=== PATIENT | male | born 1960 | race Caucasian/White ===

== ENCOUNTER 2016-11-28 06:42 | Outpatient (CLI) | payer OTHER ==
[2016-11-28 19:09] LABS: BASOPHILS % (AUTO) 0.7 %; EOSINOPHILS # (AUTO) 0.1 10^3/uL (0.0-0.7); EOSINOPHILS % (AUTO) 1.9 %; HCT - HEMATOCRIT 37.7 % (42.0-52.0); HGB - HEMOGLOBIN 12.7 g/dL (14.0-18.0); LYMPHOCYTES # (AUTO) 1.4 10^3/uL (1.5-3.5); LYMPHOCYTES % (AUTO) 29.5 %; MEAN CORPUSCULAR HEMOGLOBIN 32.1 pg (27.0-31.0); MEAN CORPUSCULAR HGB CONC 33.6 g/dL (32.0-36.0); MEAN CORPUSCULAR VOLUME 95.6 fL (80.0-94.0); MEAN PLATELET VOLUME 11.1 fL (7.4-11.4); MONOCYTES # (AUTO) 0.4 10^3/uL (0.0-1.0); MONOCYTES % (AUTO) 8.5 %; NEUTROPHILS # (AUTO) 2.7 10^3/uL (1.5-6.6); NEUTROPHILS % (AUTO) 59.4 %; RED BLOOD COUNT 3.95 10^6/uL (4.70-6.10); UNCORRECTED WHITE BLOOD COUNT 4.6 x10^3/uL; WHITE BLOOD COUNT 4.6 x10^3/uL (4.8-10.8)
[2016-11-28 19:20] LABS: ALBUMIN/GLOBULIN RATIO 1.4 (1.0-2.2); BILIRUBIN,TOTAL 0.8 mg/dL (0.2-1.0); CALCIUM 9.1 mg/dL (8.5-10.3); CREATININE 0.7 mg/dL (0.6-1.2); POTASSIUM 3.9 mmol/L (3.5-5.0); TOTAL PROTEIN 6.6 g/dL (6.7-8.2)
== END 2016-11-28 06:43 | disposition home or self-care (01) ==
LOC: LAB.N 06:42
PROVIDERS: ATTEND Family Medicine
DX: Z91.89 Other specified personal risk factors, not elsewhere classified (principal); N48.9 Disorder of penis, unspecified
CPT/HCPCS: 36415; 80053; 85025; 86694; 86695; 86696; 86780; 86803; 87389; 87491; 87591

== ENCOUNTER 2016-12-04 15:08 | Outpatient (CLI) | payer OTHER ==
[2016-12-04 19:31] LABS: BASOPHILS % (AUTO) 0.6 %; EOSINOPHILS # (AUTO) 0.1 10^3/uL (0.0-0.7); EOSINOPHILS % (AUTO) 1.4 %; HCT - HEMATOCRIT 38.3 % (42.0-52.0); HGB - HEMOGLOBIN 12.8 g/dL (14.0-18.0); IMMATURE RETIC FRACTION 0.44; IRON 75 ug/dL (45-182); LYMPHOCYTES # (AUTO) 1.2 10^3/uL (1.5-3.5); LYMPHOCYTES % (AUTO) 24.1 %; MEAN CORPUSCULAR HEMOGLOBIN 32.1 pg (27.0-31.0); MEAN CORPUSCULAR HGB CONC 33.4 g/dL (32.0-36.0); MEAN CORPUSCULAR VOLUME 95.9 fL (80.0-94.0); MONOCYTES # (AUTO) 0.5 10^3/uL (0.0-1.0); MONOCYTES % (AUTO) 9.4 %; NEUTROPHILS # (AUTO) 3.3 10^3/uL (1.5-6.6); NEUTROPHILS % (AUTO) 64.5 %; NUCLEATED RED BLOOD CELLS AUTO 0.1 /100WBC; RED BLOOD COUNT 3.99 10^6/uL (4.70-6.10); RED CELL DISTRIBUTION WIDTH 15.5 % (12.0-15.0); TOTAL IRON BINDING CAPACITY 445 ug/dL (250-450); TRANSFERRIN 318 mg/dL (180-329); UNCORRECTED WHITE BLOOD COUNT 5.1 x10^3/uL; WHITE BLOOD COUNT 5.1 x10^3/uL (4.8-10.8)
[2016-12-04 19:48] LABS: FERRITIN 50.7 ng/mL (23.9-336.2)
[2016-12-04 20:43] LABS: FOLATE > 49.60 ng/mL (5.90 - >24.8)
== END 2016-12-04 15:09 | disposition home or self-care (01) ==
LOC: LAB.N 15:08
PROVIDERS: ATTEND Family Medicine
DX: D53.9 Nutritional anemia, unspecified (principal); D69.6 Thrombocytopenia, unspecified; R74.8 Abnormal levels of other serum enzymes; B19.20 Unspecified viral hepatitis C without hepatic coma
CPT/HCPCS: 36415; 82607; 82728; 82746; 83540; 84466; 85025; 85044

== ENCOUNTER 2016-12-18 07:19 | Outpatient (CLI) | payer OTHER ==
--- NOTE | 2016-12-18 09:02 | Ultrasound Report ---
RIGHT UPPER QUADRANT ULTRASOUND: 12/18/2016 CLINICAL INDICATION: Elevated liver enzymes, hepatitis C. TECHNIQUE: Real-time scanning was performed with representative phlebotomy services static images obtained. FINDINGS: The liver measures 16.9 cm. Hepatic echogenicity is heterogeneous, with a nodular contour to the surface, compatible with cirrhosis. There is recanalization of the umbilical vein, compatibl e with portal hypertension. No focal hepatic lesion or intrahepatic biliary dilatation is present. Common bile duct measures 4 mm. The gallbladder demonstrates mobile calculi. No wall thickening or pericholecystic fluid is seen. The right kidney measures 10.5 cm, and demonstrates no hydronephrosis . No free fluid is present. IMPRESSION: CIRRHOTIC LIVER, WITH EVIDENCE OF PORTAL HYPERTENSION. CHOLELITHIASIS, WITHOUT EVIDENCE OF ACUTE CHOLECYSTITIS OR BILIARY OBSTRUCTION. JOB #: [id number] EXT JOB #:[id number]
== END 2016-12-18 07:20 | disposition home or self-care (01) ==
LOC: DI 07:19
PROVIDERS: ATTEND Family Medicine
DX: B19.20 Unspecified viral hepatitis C without hepatic coma (principal); K74.60 Unspecified cirrhosis of liver; K80.20 Calculus of gallbladder without cholecystitis without obstruction; K76.6 Portal hypertension
CPT/HCPCS: 76705

== ENCOUNTER 2017-07-07 08:00 | Outpatient (CLI) | payer OTHER ==
[2017-07-07 13:28] LABS: BASOPHILS % (AUTO) 0.5 %; EOSINOPHILS # (AUTO) 0.1 10^3/uL (0.0-0.7); EOSINOPHILS % (AUTO) 2.2 %; HGB - HEMOGLOBIN 13.7 g/dL (14.0-18.0); LYMPHOCYTES # (AUTO) 1.2 10^3/uL (1.5-3.5); LYMPHOCYTES % (AUTO) 27.5 %; MEAN CORPUSCULAR HGB CONC 33.2 g/dL (32.0-36.0); MEAN CORPUSCULAR VOLUME 96.4 fL (80.0-94.0); MEAN PLATELET VOLUME 10.5 fL (7.4-11.4); MEAN RETIC VALUE 119.3; MONOCYTES # (AUTO) 0.3 10^3/uL (0.0-1.0); MONOCYTES % (AUTO) 7.6 %; NEUTROPHILS # (AUTO) 2.6 10^3/uL (1.5-6.6); NEUTROPHILS % (AUTO) 62.2 %; RED BLOOD COUNT 4.28 10^6/uL (4.70-6.10); RED CELL DISTRIBUTION WIDTH 15.1 % (12.0-15.0); WHITE BLOOD COUNT 4.2 x10^3/uL (4.8-10.8)
[2017-07-07 13:41] LABS: PLT - PLATELET COUNT 23 10^3/uL (130-450)
[2017-07-07 13:50] LABS: ALBUMIN 3.7 g/dL (3.2-5.5); ALBUMIN/GLOBULIN RATIO 1.3 (1.0-2.2); ALKALINE PHOSPHATASE 52 IU/L (42-121); ALT ALANINE AMINOTRANSFERASE 54 IU/L (10-60); AST ASPARTATE AMINOTRANSFERASE 47 IU/L (10-42); BILIRUBIN,TOTAL 0.6 mg/dL (0.2-1.0); BUN - BLOOD UREA NITROGEN 11 mg/dL (6-20); CALCIUM 8.7 mg/dL (8.5-10.3); CARBON DIOXIDE - CO2 26 mmol/L (21-32); CHLORIDE 106 mmol/L (101-111); CHOL/HDL RATIO 2.7 (<5.0); CHOLESTEROL 138 mg/dL; CREATININE 0.7 mg/dL (0.6-1.2); GFR - MDRD 115 (>89); GLUCOSE 114 mg/dL (70-100); HDL CHOLESTEROL 51 mg/dL; LDL CHOLESTEROL,CALCULATED 73 mg/dL; LDL/HDL RATIO 1.4 (<3.6); SODIUM 137 mmol/L (135-145); TOTAL PROTEIN 6.5 g/dL (6.7-8.2); VLDL CHOLESTEROL 14 mg/dL
== END 2017-07-07 08:01 | disposition home or self-care (01) ==
LOC: LAB.N 08:00
PROVIDERS: ATTEND Family Medicine
DX: K74.60 Unspecified cirrhosis of liver (principal); D53.9 Nutritional anemia, unspecified; D69.6 Thrombocytopenia, unspecified
CPT/HCPCS: 36415; 80053; 80061; 82728; 83721; 85025; 85044

== ENCOUNTER 2019-01-26 14:05 | Emergency (ER) | payer OTHER ==
--- NOTE | 2019-01-26 14:28 | ED Physician Documentation ---
History of Present Illness - Stated complaint Stated Complaint: ANKLE PX - Chief complaint Chief Complaint: Trauma Ext - Additonal information Additional information: This is a 58-year-old male who presents with left ankle pain. Patient states the pain has been ongoing for several years. Over the last month he has had 2-3 separate inversion type injuries which have caused increased pain. He has had a surgical fixation of the ankle and distal tibia/fibula in the past. He would like to get the ankle checked for fractures. Review of Systems Skin: denies: Rash Musculoskeletal: reports: Extremity pain PD PAST MEDICAL HISTORY - Past Medical History Respiratory: COPD Endocrine/Autoimmune: Type 2 diabetes - Past Surgical History General: Colonoscopy - Present Medications Home Medications: Ambulatory Orders Medication Instructions Recorded Confirmed Ciprofloxacin HCl [Cipro] 500 mg PO BID #14 tablet 08/23/15 Omeprazole 20 mg PO DAILY #30 capsule. 08/23/15 Ondansetron HCl [Zofran] 4 mg PO Q6H PRN #10 tablet 08/23/15 - Allergies Allergies/Adverse Reactions: Allergies Allergy/AdvReac Type Severity Reaction Status Date / Time sulfamethoxazole Allergy Unknown Verified 01/26/19 14:19 [From ] trimethoprim [From ] Allergy Unknown Verified 01/26/19 14:19 - Social History Does the pt smoke?: Yes Smoking Status: Current every day smoker Does the pt drink ETOH?: Yes Does the pt have substance abuse?: No - Immunizations Immunizations are current?: Yes PD ED PE NORMAL - Vitals Vital signs reviewed: Yes - General General: Alert and oriented X 3 - HEENT HEENT: Atraumatic - Cardiac Cardiac: RRR - Respiratory Respiratory: No respiratory distress - Extremities Extremities: Other (Left ankle atraumtic in appearance and neurovascularly intact, SILT, and cap refill brisk. He has normal ROM.) - Neuro Neuro: Alert and oriented X 3 - Psych Psych: Other (Odd affect, seems somewhat scattered and frequently leaves his room to make calls.) Results - Vitals Vitals: Oxygen O2 Source Room air PD MEDICAL DECISION MAKING - ED course ED course: X-ray showed no acute fracture. It does show old signs of trauma. His physical exam also makes occult fracture unlikely. Patient was made aware of the results, and we were preparing to provide him with an air splint, however he eloped from the emergency department for unclear reasons prior to this. We are unable to give him discharge paperwork or review return precautions. He did have crutches and he was using these when he arrived. Departure - Departure Disposition: ED [place] Clinical Impression: Ankle injury Qualifiers: Encounter type: initial encounter Laterality: left Qualified Code(s): S99.912A - Unspecified injury of left ankle, initial encounter Condition: Good Discharge Date/Time: 01/26/19 16:15
[2019-01-26] MEDS ORDERED: oxyCODONE 5 MG TABLET PO STA (14:39)
[2019-01-26] MEDS ORDERED: ACETAMINOPHEN 325 MG TABLET PO STA (14:39)
--- NOTE | 2019-01-26 15:30 | XRAY Report ---
Reason: ankle pain radiating to tib/fib Procedure Date: 01/26/2019 Accession Number: [id number] / [id number] Procedure: XR - Tib/Fib LT CPT Code: Final Report FULL RESULT: EXAM: LEFT TIBIA/FIBULA RADIOGRAPHY EXAM DATE: 01/26/2019 03:06 PM. CLINICAL HISTORY: Ankle pain radiating to tib/fib. COMPARISON: None. TECHNIQUE: 2 views. FINDINGS: Bones: Old healed fractures of the mid left tibia and proximal left fibula. Joints: The visualized knee and ankle joints are normal. No effusions. Soft Tissues: Normal. No soft tissue swelling. IMPRESSION: 1. The distal tibia and fibula are excluded from the [id number]. 2. Old healed fractures of the mid left tibia and proximal left fibula. 3. No acute fracture identified. RADIA
--- NOTE | 2019-01-26 15:31 | XRAY Report ---
Reason: Ankle pain, hx surgical repair Procedure Date: 01/26/2019 Accession Number: [id number] / [id number] Procedure: XR - Ankle 3 View LT CPT Code: Final Report FULL RESULT: EXAM: LEFT ANKLE RADIOGRAPHY EXAM DATE: 01/26/2019 03:05 PM. CLINICAL HISTORY: Ankle pain, hx surgical repair. COMPARISON: None. TECHNIQUE: 3 views. FINDINGS: Bones: Secondary ossicles adjacent to medial malleus. Mild distal fibular spurring. No fractures or bone lesions. Joints: Tibiotalar effusion. 5 mm loose body versus spur along anterior aspect of distal tibia on lateral film. Spurring along medial aspect of the talus. Medial aspect of mortise is slightly prominent. Soft Tissues: Normal. No soft tissue swelling. IMPRESSION: 1. Tibiotalar joint effusion. Potential loose body or spur along anterior aspect of distal tibia. 2. Degenerative changes. 3. Medial aspect of mortise appears slightly widened. 4. No acute fracture. RADIA
== END 2019-01-26 16:15 | disposition left against medical advice (07) ==
LOC: ED 14:05
DX: S99.912A Unspecified injury of left ankle, initial encounter (principal); X50.1XXA Overexertion from prolonged static or awkward postures, initial encounter; E11.9 Type 2 diabetes mellitus without complications; F17.200 Nicotine dependence, unspecified, uncomplicated
CPT/HCPCS: 73590; 73610; 99282; 99283; A9270

== ENCOUNTER 2019-02-05 09:14 | Emergency (ER) | payer OTHER ==
[2019-02-05] MEDS ORDERED: ONDANSETRON 4 MG/2 ML VIAL IVP STA (09:37)
[2019-02-05] MEDS ORDERED: KETOROLAC 15 MG/ML VIAL IVP STA (09:37)
[2019-02-05] MEDS ORDERED: SODIUM CHLORIDE 0.9% 1,000 ML IV ONE (09:37)
[2019-02-05] MEDS ORDERED: MORPHINE 2 MG/ML CARPUJECT IVP STA ×2 (09:37→10:27)
[2019-02-05] MEDS ORDERED: ALBUTEROL NEB 2.5 MG/3 ML INH STA (09:37)
--- NOTE | 2019-02-05 09:39 | ED Physician Documentation ---
PD HPI NVD - Stated complaint Stated Complaint: SOA - Chief complaint Chief Complaint: Resp - History obtained from History obtained from: Patient - History of Present Illness Timing - onset: Last night Timing - duration: Hours Timing - details: Abrupt onset, Still present Associated symptoms: Abdominal pain, Loss of appetite, Other (nausea and vomiting without diarrhea. Cramping upper abd pain). No: Fever, Chest pain, Near syncope / syncope Similar symptoms before: Other (Had a similar less severe episode 2 days ago that lasted for a few hours and then improved. He states he had another episode remotely earlier in the year that was diagnosed as likely gallstone related.) Review of Systems Constitutional: denies: Fever, Chills Nose: denies: Rhinorrhea / runny nose, Congestion Throat: denies: Sore throat Cardiac: denies: Chest pain / pressure, Palpitations Respiratory: denies: Cough GI: reports: Abdominal Pain, Nausea, Vomiting. denies: Abdominal Swelling, Constipation, Diarrhea, Hematemesis : denies: Dysuria, Frequency Musculoskeletal: denies: Neck pain, Back pain Neurologic: reports: Generalized weakness. denies: Focal weakness, Numbness, Near syncope PD PAST MEDICAL HISTORY - Past Medical History Respiratory: COPD Endocrine/Autoimmune: Type 2 diabetes - Past Surgical History General: Colonoscopy - Present Medications Home Medications: Ambulatory Orders Medication Instructions Recorded Confirmed Dicyclomine [Bentyl] 10 mg PO BID #15 capsule 02/05/19 Hydrocodone/Acetaminophen 1 - 2 each PO Q6H PRN #14 tablet 02/05/19 [Hydrocodon-Acetaminophen 5-325] Naproxen 375 mg PO BID #20 tablet 02/05/19 Ondansetron Odt [Zofran] 4 mg TL Q6H PRN #10 tablet 02/05/19 Terazosin HCl 1 mg PO 02/05/19 02/05/19 - Allergies Allergies/Adverse Reactions: Allergies Allergy/AdvReac Type Severity Reaction Status Date / Time sulfamethoxazole Allergy Unknown Verified 02/05/19 09:23 [From ] trimethoprim [From ] Allergy Unknown Verified 02/05/19 09:23 - Social History Does the pt smoke?: Yes Smoking Status: Current every day smoker Does the pt drink ETOH?: Yes Does the pt have substance abuse?: No - Immunizations Immunizations are current?: Yes PD ED PE NORMAL - Vitals Vital signs reviewed: Yes - General General: Alert and oriented X 3, Well developed/nourished, Other (very distraught with pain and nausea, writhing at times. Screaming out at times. ) - HEENT HEENT: Moist mucous membranes, Pharynx benign - Neck Neck: Supple, no meningeal sign, No adenopathy - Cardiac Cardiac: RRR, No murmur - Respiratory Respiratory: Clear bilaterally - Abdomen Abdomen: Normal bowel sounds, Non distended, Other (tender epigastric and RUQ areas with guarding and some percussion tenderness. No rebound. ) - Male Male : Deferred - Rectal Rectal: Deferred - Back Back: No CVA TTP - Derm Derm: Normal color, Warm and dry - Extremities Extremities: Normal ROM s pain, No edema, No calf tenderness / cord - Neuro Neuro: Alert and oriented X 3, No motor deficit, Normal speech Results - Vitals Vitals: Vital Signs - 24 hr 02/05/19 02/05/19 02/05/19 09:21 09:54 11:03 Temperature 36.6 C Heart Rate 86 80 87 Respiratory 18 18 Rate Blood Pressure 188/85 H 158/81 H O2 Saturation 99 97 02/05/19 02/05/19 11:50 12:32 Temperature Heart Rate 84 76 Respiratory 16 14 Rate Blood Pressure 122/75 128/66 O2 Saturation 99 98 Oxygen O2 Source Room air - Labs Labs: Laboratory Tests 02/05/19 02/05/19 02/05/19 09:55 09:55 10:00 WBC 5.2 RBC 3.79 L Hgb 11.7 L Hct 36.2 L MCV 95.5 H MCH 30.9 MCHC 32.3 RDW 14.1 Plt Count 103 L MPV 11.8 H Neut # (Auto) 3.8 Lymph # (Auto) 0.7 L [place] # (Auto) 0.5 Eos # (Auto) 0.1 Baso # (Auto) 0.0 Absolute Nucleated RBC 0.00 Nucleated RBC % 0.0 Sodium 136 Potassium 3.6 Chloride 100 L Carbon Dioxide 26 Anion Gap 10.0 BUN 14 Creatinine 0.8 Estimated GFR (MDRD) 99 Glucose 179 H Calcium 8.6 Magnesium 1.8 Total Bilirubin 1.2 H AST 68 H ALT 69 H Alkaline Phosphatase 66 Total Protein 6.4 L Albumin 3.3 Globulin 3.1 Albumin/Globulin Ratio 1.1 Lipase 34 Urine Color Urine Clarity Urine pH Ur Specific [place] Urine Protein Urine Glucose (UA) Urine Ketones Urine Occult Blood Urine Nitrite Urine Bilirubin Urine Urobilinogen Ur Leukocyte Esterase Ur Microscopic Review Urine Culture Comments Urine Opiates Screen Ur Oxycodone Screen Urine Methadone Screen Ur Propoxyphene Screen Ur Barbiturates Screen Ur Tricyclics Screen Ur Phencyclidine Scrn Ur Amphetamine Screen U Methamphetamines Scrn U Benzodiazepines Scrn Urine Cocaine Screen U Cannabinoids Screen Influenza A (Rapid) Negative Influenza B (Rapid) Negative 02/05/19 11:09 WBC RBC Hgb Hct MCV MCH MCHC RDW Plt Count MPV Neut # (Auto) Lymph # (Auto) [place] # (Auto) Eos # (Auto) Baso # (Auto) Absolute Nucleated RBC Nucleated RBC % Sodium Potassium Chloride Carbon Dioxide Anion Gap BUN Creatinine Estimated GFR (MDRD) Glucose Calcium Magnesium Total Bilirubin AST ALT Alkaline Phosphatase Total Protein Albumin Globulin Albumin/Globulin Ratio Lipase Urine Color YELLOW Urine Clarity CLEAR Urine pH 7.0 Ur Specific [place] 1.015 Urine Protein NEGATIVE Urine Glucose (UA) NEGATIVE Urine Ketones NEGATIVE Urine Occult Blood NEGATIVE Urine Nitrite NEGATIVE Urine Bilirubin NEGATIVE Urine Urobilinogen 0.2 (NORMAL) Ur Leukocyte Esterase NEGATIVE Ur Microscopic Review NOT INDICATED Urine Culture Comments NOT INDICATED Urine Opiates Screen NEGATIVE Ur Oxycodone Screen NEGATIVE Urine Methadone Screen NEGATIVE Ur Propoxyphene Screen NEGATIVE Ur Barbiturates Screen NEGATIVE Ur Tricyclics Screen NEGATIVE Ur Phencyclidine Scrn NEGATIVE Ur Amphetamine Screen NEGATIVE U Methamphetamines Scrn NEGATIVE U Benzodiazepines Scrn NEGATIVE Urine Cocaine Screen NEGATIVE U Cannabinoids Screen POSITIVE H Influenza A (Rapid) Influenza B (Rapid) - Rads (name of study) Abd U/S Radiology: Prelim report reviewed, See rad report (mobile gallstones with GB wall thickness moderate at 6 mm, and some surrounding fluid. bild duct normal. ) PD MEDICAL DECISION MAKING - ED course Complexity details: re-evaluated patient (improved with IV fluids, meds. Minimally tender now and no guarding. ), considered differential (seems like gallbladder colic. Although he is very distraught with the pain and vomiting, so has a feeling of hyperemesis too. However his U/S does show gallstones mobile with some wall thickening and surrounding fluid. So likely cause of symptoms. ), d/w patient Departure - Departure Disposition: 01 Home, Self Care Clinical Impression: Upper abdominal pain, Biliary colic Nausea & vomiting Qualifiers: Vomiting type: bilious vomiting Qualified Code(s): R11.14 - Bilious vomiting Condition: Stable Record reviewed to determine appropriate education?: Yes Instructions: ED Gallstone W Biliary Colic Follow-Up: Devi Flores MD [Provider Admit Priv/Credential] - Prescriptions: Dicyclomine [Bentyl] 10 mg PO BID #15 capsule Hydrocodone/Acetaminophen [Hydrocodon-Acetaminophen 5-325] 1 - 2 each PO Q6H PRN #14 tablet PRN Reason: pain Naproxen 375 mg PO BID #20 tablet Ondansetron Odt [Zofran] 4 mg TL Q6H PRN #10 tablet PRN Reason: Nausea / Vomiting Comments: This sounds like a spasm and inflammation episode of your gallbladder. This may be a recurring problem in the degree and amount of recurrences would determine whether you would want to have your gallbladder removed. At this point it does not appear inflamed or infected to the point that it needs removing right now. Stay well-hydrated. Avoid fatty foods or big meals for several days to a week. This will try to reduce the amount of gallbladder federico or the forcefulness of it in response to the meals and fat digestion. Use some anti-inflammatory such as naproxen twice daily for the next week. Use dicyclomine antispasmodic twice daily for a week as well. This will try to reduce recurrent "gallbladder attacks". Add ondansetron for nausea and hydrocodone if needed for pains. Follow-up with your primary care this coming Thursday as scheduled. Also follow- up with surgery to discuss the conditions or amount of recurrences that would be an indication for gallbladder removal. Return if severe episode again despite the above medications. Discharge Date/Time: 02/05/19 12:38
[2019-02-05 10:12] LABS: ALBUMIN 3.3 g/dL (3.2-5.5); ALBUMIN/GLOBULIN RATIO 1.1 (1.0-2.2); BILIRUBIN,TOTAL 1.2 mg/dL (0.2-1.0); CALCIUM 8.6 mg/dL (8.5-10.3); CREATININE 0.8 mg/dL (0.6-1.2); MAGNESIUM 1.8 mg/dL (1.7-2.8); TOTAL PROTEIN 6.4 g/dL (6.7-8.2)
[2019-02-05 10:15] LABS: BASOPHILS % (AUTO) 0.6 %; EOSINOPHILS # (AUTO) 0.1 10^3/uL (0.0-0.7); EOSINOPHILS % (AUTO) 1.2 %; HGB - HEMOGLOBIN 11.7 g/dL (14.0-18.0); LYMPHOCYTES # (AUTO) 0.7 10^3/uL (1.5-3.5); LYMPHOCYTES % (AUTO) 13.9 %; MEAN CORPUSCULAR HEMOGLOBIN 30.9 pg (27.0-31.0); MEAN CORPUSCULAR HGB CONC 32.3 g/dL (32.0-36.0); MEAN CORPUSCULAR VOLUME 95.5 fL (80.0-94.0); MEAN PLATELET VOLUME 11.8 fL (7.4-11.4); MONOCYTES # (AUTO) 0.5 10^3/uL (0.0-1.0); MONOCYTES % (AUTO) 10.1 %; NEUTROPHILS # (AUTO) 3.8 10^3/uL (1.5-6.6); PLT - PLATELET COUNT 103 10^3/uL (130-450); RED BLOOD COUNT 3.79 10^6/uL (4.70-6.10); RED CELL DISTRIBUTION WIDTH 14.1 % (12.0-15.0); WHITE BLOOD COUNT 5.2 x10^3/uL (4.8-10.8)
[2019-02-05] MEDS ORDERED: HALOPERIDOL 5 MG/ML VIAL IVP ONE (10:26)
[2019-02-05 11:10] LABS: BILIRUBIN,URINE NEGATIVE (NEGATIVE); GLUCOSE, URINE (UA) NEGATIVE (NEGATIVE); KETONES,URINE (UA) NEGATIVE (NEGATIVE); LEUKOCYTE ESTERASE, URINE NEGATIVE (NEGATIVE); MUDS CUTOFF CONCENTRATIONS CUTOFF CONC BELOW:; NITRITE,URINE NEGATIVE (NEGATIVE); OCCULT BLOOD,URINE NEGATIVE (NEGATIVE); PROTEIN,URINE NEGATIVE (NEGATIVE); UROBILINOGEN,URINE 0.2 (NORMAL) E.U./dL (NORMAL)
[2019-02-05 11:12] LABS: CLARITY,URINE CLEAR (CLEAR)
[2019-02-05 11:26] LABS: AMPHETAMINE SCREEN,URINE NEGATIVE (NEGATIVE); BENZODIAZEPINES SCREEN, URINE NEGATIVE (NEGATIVE); COCAINE SCREEN URINE NEGATIVE (NEGATIVE); METHADONE SCREEN, URINE NEGATIVE (NEGATIVE); METHAMPHETAMINES SCREEN, URINE NEGATIVE (NEGATIVE); OPIATE SCREEN, URINE NEGATIVE (NEGATIVE); OXYCODONE SCREEN, URINE NEGATIVE (NEGATIVE); PROPOXYPHENE SCREEN, URINE NEGATIVE (NEGATIVE); TRICYCLIC ANTIDEPRESSANT,URINE NEGATIVE (NEGATIVE)
--- NOTE | 2019-02-05 11:32 | Ultrasound Report ---
Reason: upper abd pain Procedure Date: 02/05/2019 Accession Number: [id number] / [id number] Procedure: US - Abdomen Limited CPT Code: Final Report FULL RESULT: EXAM: ABDOMEN ULTRASOUND LIMITED, RUQ EXAM DATE: 02/05/2019 11:21 AM. CLINICAL HISTORY: Upper abd pain. COMPARISON: ABDOMEN/PELVIS W/ 08/23/2015 2:30 PM. TECHNIQUE: Real-time scanning was performed with static images obtained. FINDINGS: Liver: Heterogeneous hepatic parenchymal echogenicity and contour nodularity are consistent with probable cirrhosis. No focal liver masses are seen sonographically. Recanalized umbilical vein noted. Right liver measures 17.2 cm. Main portal vein flow: Hepatopetal. Gallbladder: Layering small gallstones and sludge seen in the gallbladder. Borderline gallbladder wall thickening to 4 mm. Trace pericholecystic fluid noted. Sonographic Ziegler sign is reportedly negative. Biliary System: CBD measures 7 mm. No intrahepatic or extrahepatic ductal dilatation. Other: Trace pericholecystic fluid is seen in Morison's pouch. Right kidney appears unremarkable without hydronephrosis. IMPRESSION: 1. Evidence for hepatic cirrhosis with trace ascites. No focal liver masses are seen sonographically. 2. Cholelithiasis with gallbladder wall thickening and pericholecystic fluid may reflect cholecystitis. However, sonographic Ziegler sign is reportedly negative. 3. No biliary dilation. [facility]
[2019-02-05] MEDS ORDERED: MAG HYDROX/AL HYDROX/SIMETH 30 ML UDC PO STA (12:08)
[2019-02-05] MEDS ORDERED: FAMOTIDINE 20 MG/2 ML VIAL IVP STA (12:08)
[2019-02-05] MEDS ORDERED: DICYCLOMINE 10 MG CAPSULE PO STA (12:09)
[2019-02-05 12:33] VITALS: BP 128/66
== END 2019-02-05 12:38 | disposition home or self-care (01) ==
LOC: ED 09:14
DX: K80.20 Calculus of gallbladder without cholecystitis without obstruction (principal); R11.14 Bilious vomiting; E11.9 Type 2 diabetes mellitus without complications; F17.200 Nicotine dependence, unspecified, uncomplicated
CPT/HCPCS: 36415; 76705; 80053; 81003; 83690; 83735; 85025; 87275; 87276; 96361; 96374; 96375; 99283; 99285; A9270; 80306; 81001; 87086

== ENCOUNTER 2020-03-11 16:53 | Outpatient (CLI) | payer OTHER | END 2020-03-11 16:54 | disposition critical access hospital (66) | LOC: EMS 16:53 | PROVIDERS: ATTEND Surgery | DX: R53.1 Weakness (principal); R19.5 Other fecal abnormalities; R11.10 Vomiting, unspecified | CPT/HCPCS: A0425; A0427 ==

== ENCOUNTER 2020-03-11 17:12 | Emergency (ER) | payer OTHER ==
[2020-03-11] MEDS ORDERED: cefTRIAXone 1 GM in SODIUM CHLORIDE 0.9% MINIBAG 100 ML IV STA (17:18)
[2020-03-11] MEDS ORDERED: PANTOPRAZOLE 80 MG in SODIUM CHLORIDE 0.9% 100ML 100 ML IV STA ×4 (17:18)
[2020-03-11] MEDS ORDERED: OCTREOTIDE 100 MCG/ML VIAL IVP STA (17:18)
[2020-03-11] MEDS ORDERED: OCTREOTIDE 500 MCG in SODIUM CHLORIDE 0.9% 100ML 95 ML IV STA (17:19)
--- NOTE | 2020-03-11 17:25 | ED Physician Documentation ---
PD HPI ABD PAIN - Stated complaint Stated Complaint: GI BLEED - Chief complaint Chief Complaint: General - History obtained from History obtained from: Patient - Additional information Additional information: 59yo gentleman with history of hep B&C as well as COPD. Has a history of alcohol abuse, is somewhat evasive when I asked him when he last drank. He for says he drinks quit several years ago but then admits to drinking "white wine" the last couple of months. For the last week he has had generalized weakness and now has had 4 days of melena with coffee-ground emesis as well. He has abdominal and back pain. Review of the chart shows that he is restless and he had a CAT scan in 2016 showing cirrhosis and varices. Review of Systems Ten Systems: 10 systems reviewed and negative Constitutional: reports: Fatigue Cardiac: denies: Chest pain / pressure, Palpitations Respiratory: denies: Dyspnea, Cough GI: reports: Abdominal Pain, Nausea, Vomiting, Hematemesis, Bloody / black stool PD PAST MEDICAL HISTORY - Past Medical History Past Medical History: Yes Respiratory: COPD Endocrine/Autoimmune: Type 2 diabetes - Past Surgical History General: Colonoscopy - Present Medications Home Medications: Ambulatory Orders Medication Instructions Recorded Confirmed Terazosin HCl 10 mg PO DAILY 02/05/19 02/05/19 - Allergies Allergies/Adverse Reactions: Allergies Allergy/AdvReac Type Severity Reaction Status Date / Time sulfamethoxazole Allergy Unknown Verified 03/11/20 19:37 [From ] trimethoprim [From ] Allergy Unknown Verified 03/11/20 19:37 - Social History Does the pt smoke?: Yes Smoking Status: Current every day smoker Does the pt drink ETOH?: Yes Does the pt have substance abuse?: No - Immunizations Immunizations are current?: Yes PD ED PE NORMAL - Vitals Vital signs reviewed: Yes - General General: Alert and oriented X 3 (pale, tachycardic, mild tachypnea) - HEENT HEENT: PERRL, EOMI, Other (anicteric) - Neck Neck: Supple, no meningeal sign, No bony TTP - Cardiac Cardiac: RRR, No murmur - Respiratory Respiratory: No respiratory distress, Clear bilaterally - Abdomen Abdomen: Soft, Other (Tense ascites but not tender) - Back Back: No CVA TTP, No spinal TTP - Derm Derm: Normal color, Warm and dry - Extremities Extremities: Other (2+ pitting edema of the ankles, symmetric) - Neuro Neuro: Alert and oriented X 3, Normal speech, Other (no asterixis) Results - Vitals Vitals: Vital Signs - 24 hr 03/11/20 03/11/20 03/11/20 17:15 17:20 17:51 Temperature 36.3 C L Heart Rate 115 H 108 H 111 H Respiratory 26 H 29 H 22 Rate Blood Pressure 157/74 H 148/69 H 155/80 H O2 Saturation 100 100 100 03/11/20 03/11/20 03/11/20 18:03 18:20 18:22 Temperature 37.2 C Heart Rate 118 H 121 H Respiratory 29 H 21 Rate Blood Pressure 154/75 H 138/74 H O2 Saturation 97 97 03/11/20 03/11/20 03/11/20 18:33 18:55 18:59 Temperature 37.1 C 37.1 C 37.1 C Heart Rate 105 H 105 H 105 H Respiratory 26 H 30 H 30 H Rate Blood Pressure 138/66 H 139/74 H 139/74 H O2 Saturation 96 93 03/11/20 03/11/20 03/11/20 19:03 19:04 19:09 Temperature 37.2 C 37.1 C Heart Rate 104 H 110 H 113 H Respiratory 24 22 20 Rate Blood Pressure 130/72 146/75 H 125/81 H O2 Saturation 99 03/11/20 03/11/20 03/11/20 19:12 19:24 19:28 Temperature 37.3 C 37.2 C 37.2 C Heart Rate 106 H 113 H 116 H Respiratory 18 25 H 18 Rate Blood Pressure 146/75 H 138/66 H 139/66 H O2 Saturation 97 97 03/11/20 03/11/20 03/11/20 19:33 19:48 20:03 Temperature 37.2 C 37.2 C 37.2 C Heart Rate 120 H 110 H 102 H Respiratory 27 H 25 H 21 Rate Blood Pressure 132/73 H 145/66 H 126/69 O2 Saturation 97 96 96 03/11/20 03/11/20 03/11/20 20:21 20:34 21:19 Temperature 36.9 C 37.3 C Heart Rate 123 H 116 H 108 H Respiratory 27 H 24 27 H Rate Blood Pressure 122/75 133/76 H 141/74 H O2 Saturation 95 100 97 03/11/20 03/11/20 03/11/20 21:50 22:00 22:11 Temperature 37.3 C 36.5 C 36.5 C Heart Rate 110 H 102 H 101 H Respiratory 20 18 22 Rate Blood Pressure 104/74 136/86 H 136/86 H O2 Saturation 98 99 03/11/20 03/11/20 03/11/20 22:20 22:28 22:30 Temperature 36.6 C 36.5 C 36.5 C Heart Rate 109 H 106 H 113 H Respiratory 97 H 27 H 19 Rate Blood Pressure 142/82 H 147/77 H 147/77 H O2 Saturation 99 Oxygen O2 Source Room air - EKG (time done) 1725 Rate: Rate (enter#) (109) Rhythm: Sinus tachycardia [place]: Normal Intervals: Normal ME QRS: Normal Ischemia: Non specific changes - Labs Labs: Laboratory Tests 03/11/20 03/11/20 03/11/20 17:41 17:41 17:41 WBC 7.8 RBC 2.47 L Hgb 7.6 L Hct 24.7 L MCV 100.0 H MCH 30.8 MCHC 30.8 L RDW 16.1 H Plt Count 128 L MPV 12.1 H Neut # (Auto) 6.2 Lymph # (Auto) 0.8 L [place] # (Auto) 0.7 Eos # (Auto) 0.0 Baso # (Auto) 0.0 Absolute Nucleated RBC 0.00 Nucleated RBC % 0.0 PT 18.0 H INR 1.7 H APTT 26.7 Sodium 138 Potassium 5.4 H Chloride 104 Carbon Dioxide 22 Anion Gap 12.0 BUN 32 H Creatinine 0.9 Estimated GFR (MDRD) 86 L Glucose 157 H Calcium 8.4 L Magnesium 1.6 L Total Bilirubin 2.0 H AST 95 H ALT 60 Alkaline Phosphatase 69 Ammonia Troponin I High Sens Total Protein 5.0 L Albumin 2.4 L Globulin 2.6 Albumin/Globulin Ratio 0.9 L Lipase 27 Nasal Adenovirus (PCR) Nasal B. parapertussis DNA (PCR) Nasal Coronavir 229E PCR Nasal Coronavir HKU1 PCR Nasal Coronavir NL63 PCR Nasal Coronavir OC43 PCR Nasal Enterovir/Rhinovir PCR Nasal Influenza B PCR Nasal Influenza A PCR Nasal Parainfluen 1 PCR Nasal Parainfluen 2 PCR Nasal Parainfluen 3 PCR Nasal Parainfluen 4 PCR Nasal RSV (PCR) Nasal B.pertussis DNA PCR Nasal C.pneumoniae (PCR) Dwain Human Metapneumo PCR Nasal M.pneumoniae (PCR) Nasal SARS-CoV-2 (PCR) Urine Opiates Screen Ur Oxycodone Screen Urine Methadone Screen Ur Propoxyphene Screen Ur Barbiturates Screen Ur Tricyclics Screen Ur Phencyclidine Scrn Ur Amphetamine Screen U Methamphetamines Scrn U Benzodiazepines Scrn Urine Cocaine Screen U Cannabinoids Screen Ethyl Alcohol < 5.0 Blood Type Blood Type Recheck Antibody Screen Crossmatch IS Only 03/11/20 03/11/20 03/11/20 17:41 17:41 17:41 WBC RBC Hgb Hct MCV MCH MCHC RDW Plt Count MPV Neut # (Auto) Lymph # (Auto) [place] # (Auto) Eos # (Auto) Baso # (Auto) Absolute Nucleated RBC Nucleated RBC % PT INR APTT Sodium Potassium Chloride Carbon Dioxide Anion Gap BUN Creatinine Estimated GFR (MDRD) Glucose Calcium Magnesium Total Bilirubin AST ALT Alkaline Phosphatase Ammonia 33.5 Troponin I High Sens 10.9 Total Protein Albumin Globulin Albumin/Globulin Ratio Lipase Nasal Adenovirus (PCR) Nasal B. parapertussis DNA (PCR) Nasal Coronavir 229E PCR Nasal Coronavir HKU1 PCR Nasal Coronavir NL63 PCR Nasal Coronavir OC43 PCR Nasal Enterovir/Rhinovir PCR Nasal Influenza B PCR Nasal Influenza A PCR Nasal Parainfluen 1 PCR Nasal Parainfluen 2 PCR Nasal Parainfluen 3 PCR Nasal Parainfluen 4 PCR Nasal RSV (PCR) Nasal B.pertussis DNA PCR Nasal C.pneumoniae (PCR) Dwain Human Metapneumo PCR Nasal M.pneumoniae (PCR) Nasal SARS-CoV-2 (PCR) Urine Opiates Screen Ur Oxycodone Screen Urine Methadone Screen Ur Propoxyphene Screen Ur Barbiturates Screen Ur Tricyclics Screen Ur Phencyclidine Scrn Ur Amphetamine Screen U Methamphetamines Scrn U Benzodiazepines Scrn Urine Cocaine Screen U Cannabinoids Screen Ethyl Alcohol Blood Type O POSITIVE Blood Type Recheck Antibody Screen NEGATIVE Crossmatch IS Only See Detail 03/11/20 03/11/20 03/11/20 18:00 18:20 21:15 WBC RBC Hgb Hct MCV MCH MCHC RDW Plt Count MPV Neut # (Auto) Lymph # (Auto) [place] # (Auto) Eos # (Auto) Baso # (Auto) Absolute Nucleated RBC Nucleated RBC % PT INR APTT Sodium Potassium Chloride Carbon Dioxide Anion Gap BUN Creatinine Estimated GFR (MDRD) Glucose Calcium Magnesium Total Bilirubin AST ALT Alkaline Phosphatase Ammonia Troponin I High Sens Total Protein Albumin Globulin Albumin/Globulin Ratio Lipase Nasal Adenovirus (PCR) NOT DETECTED Nasal B. parapertussis DNA (PCR) NOT DETECTED Nasal Coronavir 229E PCR NOT DETECTED Nasal Coronavir HKU1 PCR NOT DETECTED Nasal Coronavir NL63 PCR NOT DETECTED Nasal Coronavir OC43 PCR NOT DETECTED Nasal Enterovir/Rhinovir PCR NOT DETECTED Nasal Influenza B PCR NOT DETECTED Nasal Influenza A PCR NOT DETECTED Nasal Parainfluen 1 PCR NOT DETECTED Nasal Parainfluen 2 PCR NOT DETECTED Nasal Parainfluen 3 PCR NOT DETECTED Nasal Parainfluen 4 PCR NOT DETECTED Nasal RSV (PCR) NOT DETECTED Nasal B.pertussis DNA PCR NOT DETECTED Nasal C.pneumoniae (PCR) NOT DETECTED Dwain Human Metapneumo PCR NOT DETECTED Nasal M.pneumoniae (PCR) NOT DETECTED Nasal SARS-CoV-2 (PCR) NOT DETECTED Urine Opiates Screen POSITIVE H Ur Oxycodone Screen NEGATIVE Urine Methadone Screen NEGATIVE Ur Propoxyphene Screen NEGATIVE Ur Barbiturates Screen NEGATIVE Ur Tricyclics Screen NEGATIVE Ur Phencyclidine Scrn NEGATIVE Ur Amphetamine Screen NEGATIVE U Methamphetamines Scrn NEGATIVE U Benzodiazepines Scrn NEGATIVE Urine Cocaine Screen NEGATIVE U Cannabinoids Screen POSITIVE H Ethyl Alcohol Blood Type Blood Type Recheck O POSITIVE Antibody Screen Crossmatch IS Only PD MEDICAL DECISION MAKING - ED course ED course: [employer] respiratory panel ordered to rapidly test specifically for COVID-19 in this patient who is expected to be hospitalized 59-year-old gentleman with cirrhosis, ascites, and history of varices presents with clinical upper GI bleed that is symptomatic. He. Appears pale and is tachycardic but not hypotensive. He arrives with 2 18-gauge IVs in place. Ordered 1 g of Rocephin IV, octreotide bolus and drip, Protonix bolus and drip, blood will be readied. Labs will be checked of course and I discussed the case by phone shortly after initial arrival with our on-call surgeon, Dr. Flores to consider potential admission here versus transfer to a Facility capable of GI consultation and intervention and she recommends the latter. He is a DC patient and as such we called the DC and the [facility] spoke with Cammy who confirmed that they do not have any beds and cannot accept this patient in transfer. Throwing up copious volumes of maroon emesis. We were preparing for intubation and central line. He refused intubation. This is after discussion that he is critically ill and may need control of his airway for stabilization he understands and refuses. He did have a third peripheral IV placed another 18- gauge. We were able to draw blood. After that we were talking about where to transfer him since we do not have the capability have GI consultation or [facility]. He did not want to go to [facility] which is the closest place with GI as he had a bad experience there once he said. And subsequently wanted to actually go home. I discussed with him that he may well there and would be leaving AGAINST MEDICAL ADVICE and he acquiesced and asked us to call [facility] was full. Then he started talking about leaving AMA again and wanted me to call his . He gave me to phone numbers, neither of which were working phone numbers. I tried both phone numbers in the demographics section on the chart, no answer at either, voicemail was left on both. The visiting housekeeper had the police department go out and find the . I spoke with her by phone. She is available at [phone]. She will make her way to the hospital but agrees with transfer. I spoke with the windows desktop engineer at [facility] at 8:10 PM. She does not think he needs to be in the ICU and the hospital was for anyway so we called [facility]. We called [facility], they were full. Tried [facility] notified a couple minutes before 10 PM that all of their facilities were full. Then tried [facility], full. Then [facility] called, full. Subsequently given the difficulties with transfer I spot with Dr. Flores again. While she does not personally do varices, she can partner with Dr. De La Cruz tomorrow who does and says she will consult and agrees to see him. Deferred to medicine for admission. I discussed the case with Dr. Crowell here at 10:40 PM. Given the comorbidities and complexity of the case he declined to admit and requests that we continue to try to transfer this gentleman. Subsequently I asked the OVERHEAD DOOR TECHNICIAN to call [place], [facility] facilities in [facility] and [place] to continue to try to transfer. Care to Dr. Ambriz at shift change pending hopeful transfer to a tertiary facility. - Critical Care Time(min): 85 Time Includes: Direct patient care, Review records, Reassess patient, Document care, Coordinate care, Medical consult, Family consult for tx dec Data interpretation: Labs, Pulse ox Procedures included in critical care time: Peripheral IV Procedures excluded from critical care time: EKG Departure - Departure Disposition: 02 Transfer Acute Care Hosp Clinical Impression: Upper GI bleed, Anemia due to acute blood loss Cirrhosis Qualifiers: Hepatic cirrhosis type: unspecified hepatic cirrhosis Ascites presence: with ascites Qualified Code(s): K74.60 - Unspecified cirrhosis of liver Esophageal varices Qualifiers: Esophageal varices type: secondary Esophageal varices bleeding: with bleeding Qualified Code(s): I85.11 - Secondary esophageal varices with bleeding Condition: Critical
[2020-03-11] MEDS ORDERED: cefTRIAXone 1 GM VIAL ONE (17:33)
[2020-03-11] MEDS ORDERED: MORPHINE 10 MG/ML VIAL IVP STA ×2 (17:35→23:48)
[2020-03-11] MEDS ORDERED: PANTOPRAZOLE 40 MG VIAL ONE ×2 (17:36)
[2020-03-11] MEDS ORDERED: ROCURONIUM 50 MG/5 ML VIAL IVP STA (17:38)
[2020-03-11] MEDS ORDERED: PROPOFOL 500 MG/50 ML 500 MG/50 ML VIAL IV STA (17:38)
[2020-03-11] MEDS ORDERED: ETOMIDATE 40 MG/20 ML VIAL IVP STA (17:38)
[2020-03-11 17:50] LABS: BASOPHILS % (AUTO) 0.3 %; EOSINOPHILS % (AUTO) 0.1 %; HGB - HEMOGLOBIN 7.6 g/dL (14.0-18.0); LYMPHOCYTES # (AUTO) 0.8 10^3/uL (1.5-3.5); LYMPHOCYTES % (AUTO) 10.7 %; MEAN CORPUSCULAR HEMOGLOBIN 30.8 pg (27.0-31.0); MEAN CORPUSCULAR HGB CONC 30.8 g/dL (32.0-36.0); MEAN PLATELET VOLUME 12.1 fL (7.4-11.4); MONOCYTES # (AUTO) 0.7 10^3/uL (0.0-1.0); NEUTROPHILS # (AUTO) 6.2 10^3/uL (1.5-6.6); NEUTROPHILS % (AUTO) 79.5 %; PLT - PLATELET COUNT 128 10^3/uL (130-450); RED BLOOD COUNT 2.47 10^6/uL (4.70-6.10); RED CELL DISTRIBUTION WIDTH 16.1 % (12.0-15.0); WHITE BLOOD COUNT 7.8 x10^3/uL (4.8-10.8)
[2020-03-11] MEDS ORDERED: PROPOFOL 200 MG/20 ML VIAL IVP ONE (17:50)
[2020-03-11] MEDS ORDERED: ETOMIDATE 40 MG/20 ML VIAL IVP ONE (17:50)
[2020-03-11] MEDS ORDERED: ROCURONIUM 50 MG/5 ML VIAL ONE (17:51)
[2020-03-11 17:53] LABS: INR 1.7 (0.8-1.2)
[2020-03-11 18:00] LABS: PARTIAL THROMBOPLASTIN TIME 26.7 secs (24.9-33.3)
[2020-03-11 18:02] LABS: ALBUMIN 2.4 g/dL (3.2-5.5); ALBUMIN/GLOBULIN RATIO 0.9 (1.0-2.2); ALKALINE PHOSPHATASE 69 IU/L (42-121); ALT ALANINE AMINOTRANSFERASE 60 IU/L (10-60); AST ASPARTATE AMINOTRANSFERASE 95 IU/L (10-42); BUN - BLOOD UREA NITROGEN 32 mg/dL (6-20); CALCIUM 8.4 mg/dL (8.5-10.3); CARBON DIOXIDE - CO2 22 mmol/L (21-32); CHLORIDE 104 mmol/L (101-111); CREATININE 0.9 mg/dL (0.6-1.2); GLUCOSE 157 mg/dL (70-100); LIPASE 27 U/L (22-51); MAGNESIUM 1.6 mg/dL (1.7-2.8); SODIUM 138 mmol/L (135-145)
[2020-03-11 18:53] LABS: C. PNEUMONIAE- RESP PCR PANEL NOT DETECTED
[2020-03-11 21:23] LABS: MUDS CUTOFF CONCENTRATIONS CUTOFF CONC BELOW:
[2020-03-11 21:35] LABS: COCAINE SCREEN URINE NEGATIVE (NEGATIVE); METHAMPHETAMINES SCREEN, URINE NEGATIVE (NEGATIVE); OPIATE SCREEN, URINE POSITIVE (NEGATIVE)
[2020-03-11 21:36] LABS: AMPHETAMINE SCREEN,URINE NEGATIVE (NEGATIVE); BENZODIAZEPINES SCREEN, URINE NEGATIVE (NEGATIVE); METHADONE SCREEN, URINE NEGATIVE (NEGATIVE); OXYCODONE SCREEN, URINE NEGATIVE (NEGATIVE); PROPOXYPHENE SCREEN, URINE NEGATIVE (NEGATIVE); TRICYCLIC ANTIDEPRESSANT,URINE NEGATIVE (NEGATIVE)
[2020-03-12 01:46] VITALS: BP 152/92
== END 2020-03-12 02:48 | disposition left against medical advice (07) ==
LOC: EDUNIT# → ED 17:12
DX: K92.0 Hematemesis (principal); R00.0 Tachycardia, unspecified; R18.8 Other ascites; B19.10 Unspecified viral hepatitis B without hepatic coma; B19.20 Unspecified viral hepatitis C without hepatic coma; J44.9 Chronic obstructive pulmonary disease, unspecified; E11.9 Type 2 diabetes mellitus without complications; K74.60 Unspecified cirrhosis of liver; F17.200 Nicotine dependence, unspecified, uncomplicated; Z20.828 Contact with and (suspected) exposure to other viral communicable diseases; I85.11 Secondary esophageal varices with bleeding; D62 Acute posthemorrhagic anemia; Z53.29 Procedure and treatment not carried out because of patient's decision for other reasons; F10.10 Alcohol abuse, uncomplicated
CPT/HCPCS: 0202U; 36430; 80053; 80306; 80320; 82140; 83690; 83735; 84484; 85014; 85018; 85025; 85610; 85730; 86850; 86900; 86901; 86920; 93005; 96365; 96366; 96368; 96375; 96376; 99291; 99292; J2354; P9016

== ENCOUNTER 2020-03-15 07:20 | Outpatient (CLI) | payer OTHER ==
--- OUTSIDE RECORDS SUMMARY | 2020-03-21 01:10 | EXTERNAL MEDICAL SUMMARY RPT | Continuity of Care Document ---
:1960 Demographics Phone Unavailable Preferred Language Moldovan Marital Status Unknown Evangelical Affiliation Unknown Race Unknown Ethnic Group Unknown Author Organization [place] Address [address] [phone] Phone Care Team Providers Name Role Phone MD Unavailable Unavailable Jackie Unavailable Unavailable Jade Unavailable Unavailable Gravatt Unavailable Unavailable Andrade Unavailable Unavailable Problems date description facility 2015-08-23 13:54 UNSPECIFIED VIRAL HEPATITIS C [facility] WITHOUT HEPATIC COMA 2015-08-23 13:54 TYPE 2 DIABETES MELLITUS WITHOUT [facility] COMPLICATIONS 2015-08-23 13:54 ALCOHOL DEPENDENCE, UNCOMPLICATED [facility] 2015-08-23 13:54 NICOTINE DEPENDENCE, UNSPECIFIED, [facility] UNCOMPLICATED 2015-08-23 13:54 CHRONIC OBSTRUCTIVE PULMONARY [facility] DISEASE, UNSPECIFIED 2015-08-23 13:54 NONINFECTIVE GASTROENTERITIS AND [facility] COLITIS, UNSPECIFIED 2015-08-23 13:54 DVRTCLOS OF INTEST, PART UNSP, W/O i [facility] PERF OR ABSCESS W/O BLEED 2015-08-23 13:54 ALCOHOLIC CIRRHOSIS OF LIVER [facility] WITHOUT ASCITES 2015-08-23 13:54 CALCULUS OF GALLBLADDER W/O [facility] CHOLECYSTITIS WITH OBSTRUCTION 2015-08-23 13:[address] [facility] 2015-08-23 13:54 UNSPECIFIED ABDOMINAL PAIN [facility] 2015-08-23 13:54 NAUSEA WITH VOMITING, UNSPECIFIED [facility] 2015-09-07 08:14 UNSPECIFIED VIRAL HEPATITIS C [facility] WITHOUT HEPATIC COMA 2015-09-07 08:14 ESSENTIAL (PRIMARY) HYPERTENSION [facility] 2015-09-07 08:14 ENLARGED PROSTATE WITH LOWER [facility] URINARY TRACT SYMPTOMS 2015-09-07 08:14 ENCOUNTER FOR SCREENING, [facility] UNSPECIFIED 2016-01-11 06:35 NUTRITIONAL ANEMIA, UNSPECIFIED [facility] 2016-11-28 06:42 DISORDER OF PENIS, UNSPECIFIED [facility] 2016-11-28 06:42 OTH PERSONAL RISK FACTORS, NOT [facility] ELSEWHERE CLASSIFIED 2016-12-04 08:00 DISORDER OF PENIS, UNSPECIFIED [facility] 2016-12-04 08:00 OTH PERSONAL RISK FACTORS, NOT [facility] ELSEWHERE CLASSIFIED 2016-12-04 15:08 UNSPECIFIED VIRAL HEPATITIS C [facility] WITHOUT HEPATIC COMA 2016-12-04 15:08 NUTRITIONAL ANEMIA, UNSPECIFIED [facility] 2016-12-04 15:08 THROMBOCYTOPENIA, UNSPECIFIED [facility] 2016-12-04 15:08 ABNORMAL LEVELS OF OTHER SERUM [facility] ENZYMES 2016-12-18 07:19 UNSPECIFIED VIRAL HEPATITIS C [facility] WITHOUT HEPATIC COMA 2016-12-18 07:19 UNSPECIFIED CIRRHOSIS OF LIVER [facility] 2016-12-18 07:19 PORTAL HYPERTENSION [facility] 2016-12-18 07:19 CALCULUS OF GALLBLADDER W/O [facility] CHOLECYSTITIS W/O OBSTRUCTION 2017-07-07 08:00 NUTRITIONAL ANEMIA, UNSPECIFIED [facility] 2017-07-07 08:00 THROMBOC[facility]TOPENIA[facility] 2017-07-07 08:00 UNSPECIFIED CIRRHOSIS OF LIVER [facility] 2019-01-26 14:05 TYPE 2 DIABETES MELLITUS WITHOUT [facility] COMPLICATIONS 2019-01-26 14:05 NICOTINE DEPENDENCE, UNSPECIFIED, [facility] UNCOMPLICATED 2019-01-26 14:05 PAIN IN LEFT ANKLE AND JOINTS OF [facility] LEFT FOOT 2019-01-26 14:05 UNSPECIFIED INJURY OF LEFT ANKLE, [facility] INITIAL ENCOUNTER 2019-01-26 14:05 OVEREXERTION FROM PROLONGED STATIC [facility] OR AWKWARD POSTURES, INIT 2019-02-05 09:14 TYPE 2 DIABETES MELLITUS WITHOUT [facility] COMPLICATIONS 2019-02-05 09:14 NICOTINE DEPENDENCE, UNSPECIFIED, [facility] UNCOMPLICATED 2019-02-05 09:14 CALCULUS OF GALLBLADDER W/O [facility] CHOLECYSTITIS W/O OBSTRUCTION 2019-02-05 09:14 UPPER ABDOMINAL PAIN, UNSPECIFIED [facility] 2019-02-05 09:14 BILIOUS VOMITING [facility] [place] 2020-03-11 17:12 UNSPECIFIED VIRAL HEPATITIS B [facility] WITHOUT HEPATIC COMA 2020-03-11 17:12 UNSPECIFIED VIRAL HEPATITIS C [facility] WITHOUT HEPATIC COMA 2020-03-11 17:12 ACUTE POSTHEMORRHAGIC ANEMIA [facility] 2020-03-11 17:12 TYPE 2 DIABETES MELLITUS WITHOUT [facility] COMPLICATIONS 2020-03-11 17:12 ALCOHOL ABUSE, UNCOMPLICATED [facility] 2020-03-11 17:12 NICOTINE DEPENDENCE, UNSPECIFIED, [facility] UNCOMPLICATED 2020-03-11 17:12 SECONDARY ESOPHAGEAL VARICES WITH [facility] BLEEDING 2020-03-11 17:12 CHRONIC OBSTRUCTIVE PULMONARY [facility] DISEASE, UNSPECIFIED 2020-03-11 17:12 UNSPECIFIED CIRRHOSIS OF LIVER [facility] 2020-03-11 17:12 HEMATEMESIS [facility] [place] 2020-03-11 17:12 TACHYCARDIA, UNSPECIFIED [facility] 2020-03-11 17:12 OTHER ASCITES [facility] [place] 2020-03-11 17:12 CONTACT W AND EXPOSURE TO OTH [facility] VIRAL COMMUNICABLE D 2020-03-11 17:12 PROC/TRTMT NOT CRD OUT BEC PT [facility] DECISION FOR OTH [facility] Allergies date description facility ADHESIVE \T\ TAPE [facility] [place] CLARITHROMYCIN [facility] DOXYCYCLINE [facility] LISINOPRIL [facility] METRONIDAZOLE [facility] MORPHINE [facility] [place] STREPTOMYCIN BASE [facility] [place] SULFAMETHOXAZOLE-TRIMETHOPRIM [facility] NO KNOWN ENVIRONMENTAL ALLERGIES [facility] ASPIRIN [facility] AZITHROMYCIN [facility] GRASS POLLEN [facility] LANSOPRAZOLE [facility] OPIOIDS - MORPHINE ANALOGUES [facility] PENICILLINS [facility] TUBERCULIN PPD [facility] NO ALLERGY INFORMATION AVAILABLE [facility] NSAIDS (NON-STEROIDAL ANTI-INFLAMMATORY DRUG) [facility] PENICILLINS [facility] SULFA (SULFONAMIDE ANTIBIOTICS) [facility] NO KNOWN ALLERGIES [facility] LATEX [facility] PROCHLORPERAZINE [facility] MORPHINE [facility] CODEINE [facility] LOVASTATIN [facility] LACTOSE [facility] GARLIC [facility] SULFAMETHOXAZOLE [facility] FENTANYL [facility] SIMVASTATIN [facility] AZITHROMYCIN [facility] TRAMADOL [facility] ENOXAPARIN [facility] RANITIDINE [facility] ATORVASTATIN [facility] DULOXETINE [facility] ROSUVASTATIN [facility] OXYCODONE-ACETAMINOPHEN [facility] COENZYME Q10 [facility] Penicillins [facility] sulfamethoxazole [facility] trimethoprim [facility] NO KNOWN ALLERGIES [facility] CAT DANDER [facility] sulfamethoxazole [facility] trimethoprim [facility] BEE VENOM PROTEIN (HONEY BEE) [facility] MORPHINE [facility] ZOLPIDEM [facility] Results Social History date description facility [id number]
--- OUTSIDE RECORDS SUMMARY | 2020-03-21 01:35 | EXTERNAL MEDICAL SUMMARY RPT | Continuity of Care Document ---
:1960 Demographics Phone Unavailable Preferred Language Stateless Marital Status Unknown Uatsdin Affiliation Unknown Race Unknown Ethnic Group Unknown Author Organization [place] Address [address] [phone] Phone Care Team Providers Name Role Phone MD Unavailable Unavailable Jackie Unavailable Unavailable Jade Unavailable Unavailable Gravatt Unavailable Unavailable Andrade Unavailable Unavailable Problems date description facility 2015-08-23 13:54 UNSPECIFIED VIRAL HEPATITIS C [facility] WITHOUT HEPATIC COMA 2015-08-23 13:54 TYPE 2 DIABETES MELLITUS WITHOUT [facility] COMPLICATIONS 2015-08-23 13:54 ALCOHOL DEPENDENCE, UNCOMPLICATED [facility] 2015-08-23 13:54 NICOTINE DEPENDENCE, UNSPECIFIED, [facility] UNCOMPLICATED 2015-08-23 13:54 CHRONIC OBSTRUCTIVE PULMONARY [facility] DISEASE, UNSPECIFIED 2015-08-23 13:54 NONINFECTIVE GASTROENTERITIS AND [facility] COLITIS, UNSPECIFIED 2015-08-23 13:54 DVRTCLOS OF INTEST, PART UNSP, W/O i [facility] PERF OR ABSCESS W/O BLEED 2015-08-23 13:54 ALCOHOLIC CIRRHOSIS OF LIVER [facility] WITHOUT ASCITES 2015-08-23 13:54 CALCULUS OF GALLBLADDER W/O [facility] CHOLECYSTITIS WITH OBSTRUCTION 2015-08-23 13:54 HEMOPTYSIS [facility] 2015-08-23 13:54 UNSPECIFIED ABDOMINAL PAIN [facility] 2015-08-23 13:54 NAUSEA WITH VOMITING, UNSPECIFIED [facility] 2015-09-07 08:14 UNSPECIFIED VIRAL HEPATITIS C [facility] WITHOUT HEPATIC COMA 2015-09-07 08:14 ESSENTIAL (PRIMARY) HYPERTENSION [facility] 2015-09-07 08:14 ENLARGED PROSTATE WITH LOWER [facility] URINARY TRACT SYMPTOMS 2015-09-07 08:14 ENCOUNTER FOR SCREENING, [facility] UNSPECIFIED 2016-01-11 06:35 NUTRITIONAL ANEMIA, UNSPECIFIED [facility] 2016-11-28 06:42 DISORDER OF PENIS, UNSPECIFIED [facility] 2016-11-28 06:42 OTH PERSONAL RISK FACTORS, NOT [facility] ELSEWHERE CLASSIFIED 2016-12-04 08:00 DISORDER OF PENIS, UNSPECIFIED [facility] 2016-12-04 08:00 OTH PERSONAL RISK FACTORS, NOT [facility] ELSEWHERE CLASSIFIED 2016-12-04 15:08 UNSPECIFIED VIRAL HEPATITIS C [facility] WITHOUT HEPATIC COMA 2016-12-04 15:08 NUTRITIONAL ANEMIA, UNSPECIFIED [facility] 2016-12-04 15:08 THROMBOCYTOPENIA, UNSPECIFIED [facility] 2016-12-04 15:08 ABNORMAL LEVELS OF OTHER SERUM [facility] ENZYMES 2016-12-18 07:19 UNSPECIFIED VIRAL HEPATITIS C [facility] WITHOUT HEPATIC COMA 2016-12-18 07:19 UNSPECIFIED CIRRHOSIS OF LIVER [facility] 2016-12-18 07:19 PORTAL HYPERTENSION [facility] 2016-12-18 07:19 CALCULUS OF GALLBLADDER W/O [facility] CHOLECYSTITIS W/O OBSTRUCTION 2017-07-07 08:00 NUTRITIONAL ANEMIA, UNSPECIFIED [facility] 2017-07-07 08:00 [facility]OPEN[facility] 2017-07-07 08:00 UNSPECIFIED CIRRHOSIS OF LIVER [facility] 2019-01-26 14:05 TYPE 2 DIABETES MELLITUS WITHOUT [facility] COMPLICATIONS 2019-01-26 14:05 NICOTINE DEPENDENCE, UNSPECIFIED, [facility] UNCOMPLICATED 2019-01-26 14:05 PAIN IN LEFT ANKLE AND JOINTS OF [facility] LEFT FOOT 2019-01-26 14:05 UNSPECIFIED INJURY OF LEFT ANKLE, [facility] INITIAL ENCOUNTER 2019-01-26 14:05 OVEREXERTION FROM PROLONGED STATIC [facility] OR AWKWARD POSTURES, INIT 2019-02-05 09:14 TYPE 2 DIABETES MELLITUS WITHOUT [facility] COMPLICATIONS 2019-02-05 09:14 NICOTINE DEPENDENCE, UNSPECIFIED, [facility] UNCOMPLICATED 2019-02-05 09:14 CALCULUS OF GALLBLADDER W/O [facility] CHOLECYSTITIS W/O OBSTRUCTION 2019-02-05 09:14 UPPER ABDOMINAL PAIN, UNSPECIFIED [facility] 2019-02-05 09:[address]OM[address] [facility] 2020-03-11 17:12 UNSPECIFIED VIRAL HEPATITIS B [facility] WITHOUT HEPATIC COMA 2020-03-11 17:12 UNSPECIFIED VIRAL HEPATITIS C [facility] WITHOUT HEPATIC COMA 2020-03-11 17:12 ACUTE POSTHEMORRHAGIC ANEMIA [facility] 2020-03-11 17:12 TYPE 2 DIABETES MELLITUS WITHOUT [facility] COMPLICATIONS 2020-03-11 17:12 ALCOHOL ABUSE, UNCOMPLICATED [facility] 2020-03-11 17:12 NICOTINE DEPENDENCE, UNSPECIFIED, [facility] UNCOMPLICATED 2020-03-11 17:12 SECONDARY ESOPHAGEAL VARICES WITH [facility] BLEEDING 2020-03-11 17:12 CHRONIC OBSTRUCTIVE PULMONARY [facility] DISEASE, UNSPECIFIED 2020-03-11 17:12 UNSPECIFIED CIRRHOSIS OF LIVER [facility] 2020-03-11 17:[address] [facility] 2020-03-11 17:12 TACHYCARDIA, UNSPECIFIED [facility] 2020-03-11 17:[address] [facility] 2020-03-11 17:12 CONTACT W AND EXPOSURE TO OTH [facility] VIRAL COMMUNICABLE D 2020-03-11 17:12 PROC/TRTMT NOT CRD OUT BEC PT [facility] DECISION FOR OTH [facility]CH[facility] Allergies date description facility ADHESIVE \T\ TAPE [facility] CLARITHROMYCIN [facility] DO[facility]CLINE [facility] LISINOPRIL [facility] METRONIDAZOLE [facility] MORPHINE [facility] STREPTOMYCIN BASE [facility] SULFAMETHOXAZOLE-TRIMETHOPRIM [facility] NO KNOWN ENVIRONMENTAL ALLERGIES [facility]IRIN [facility] AZITHROMYCIN [facility] GRASS POLLEN [facility] LANSOPRAZOLE [facility] OPIOIDS - MORPHINE ANALOGUES [facility] PENICILLINS [facility] TUBERCULIN PPD [facility] NO ALLERGY INFORMATION AVAILABLE [facility] NSAIDS (NON-STEROIDAL ANTI-INFLAMMATORY DRUG) [facility] PENICILLINS [facility] SULFA (SULFONAMIDE ANTIBIOTICS) [facility] NO KNOWN ALLERGIES [facility] LATEX [facility]INE [facility] M[facility]PHINE [facility] CODEINE [facility] LOVASTATIN [facility] LACTOSE [facility] GARLIC [facility] SULFAMETHOXAZOLE [facility] FENTANYL [facility] SIMVASTATIN [facility] AZITHROMYC[facility] TRAMADOL [facility] ENOXAPARIN [facility] RANITIDINE [facility] ATORVASTATIN [facility] DULOXETINE [facility] ROSUVASTATIN [facility] OXYCODONE-ACETAMINOPHEN [facility] COENZYME Q10 [facility] Penicillins [facility] sulfamethoxazole [facility] trimethoprim [facility] NO KNOWN ALLERGIES [facility] CAT DANDER [facility] sulfamethoxazole [facility] trimethoprim [facility] BEE VENOM PROTEIN (HONEY BEE) [facility] MORPHINE [facility] ZOLPIDEM [facility] Results Social History date description facility [id number]
== END 2020-03-15 23:59 | disposition critical access hospital (66) ==
LOC: EMS 07:20
PROVIDERS: ATTEND Surgery
DX: R10.9 Unspecified abdominal pain (principal); K59.00 Constipation, unspecified
CPT/HCPCS: A0425; A0429

== ENCOUNTER 2020-03-15 07:39 | Inpatient (IN) | payer OTHER ==
[2020-03-15] MEDS ORDERED: SODIUM CHLORIDE 0.9% 1,000 ML IV STA (07:44)
[2020-03-15] MEDS ORDERED: PANTOPRAZOLE 40 MG VIAL IV STA (07:45)
[2020-03-15 08:20] LABS: BASOPHILS % (AUTO) 0.4 %; EOSINOPHILS % (AUTO) 0.4 %; HGB - HEMOGLOBIN 7.5 g/dL (14.0-18.0); LYMPHOCYTES # (AUTO) 0.8 10^3/uL (1.5-3.5); LYMPHOCYTES % (AUTO) 8.4 %; MEAN CORPUSCULAR HEMOGLOBIN 31.3 pg (27.0-31.0); MEAN CORPUSCULAR HGB CONC 32.3 g/dL (32.0-36.0); MEAN CORPUSCULAR VOLUME 96.7 fL (80.0-94.0); MEAN PLATELET VOLUME 11.4 fL (7.4-11.4); MONOCYTES # (AUTO) 0.9 10^3/uL (0.0-1.0); NEUTROPHILS # (AUTO) 7.5 10^3/uL (1.5-6.6); NEUTROPHILS % (AUTO) 80.3 %; PLT - PLATELET COUNT 207 10^3/uL (130-450); WHITE BLOOD COUNT 9.4 x10^3/uL (4.8-10.8)
[2020-03-15 08:32] LABS: ALBUMIN 2.5 g/dL (3.2-5.5); BILIRUBIN,TOTAL 3.5 mg/dL (0.2-1.0); CALCIUM 8.4 mg/dL (8.5-10.3); CREATININE 1.2 mg/dL (0.6-1.2)
--- NOTE | 2020-03-15 08:44 | ED Physician Documentation ---
History of Present Illness - Stated complaint Stated Complaint: ABD PX - Chief complaint Chief Complaint: Abd Pain - History obtained from History obtained from: Patient - Additonal information Additional information: Patient comes emergency department chief complaint of left-sided abdominal pain for the last week. He states has been constipated and has been mainly putting out small chunks of stool with watery diarrhea. He states his last bowel movement was couple days ago. The patient does note that he has not been eating very much and has felt somewhat nauseated. The patient was seen here several days ago for coffee-ground emesis and was found to be anemic at that time, as well as to have ascites. He signed out AGAINST MEDICAL ADVICE after being deemed unable to be admitted here and no beds being available at multiple facilities. The patient states that he has continued to be nauseated and did vomit a little this morning, but that there were no coffee grounds. The medics state that he vomited a little in the rig and it looked just like orange juice, which the patient had drunk right before calling them. No live blood. The patient states that he has not had any further black stools since leaving the emergency department last time, either. The patient denies lightheadedness or syncope. No chest pain or shortness of breath. He has not filled the omeprazole prescription that he was given last time. No fevers or chills. Patient has chronic abdominal distention from ascites, due to alcoholic liver disease. No other complaints at this time. Review of Systems Ten Systems: 10 systems reviewed and negative Constitutional: reports: Reviewed and negative Eyes: reports: Reviewed and negative Ears: reports: Reviewed and negative Nose: reports: Reviewed and negative Throat: reports: Reviewed and negative Cardiac: reports: Reviewed and negative Respiratory: reports: Reviewed and negative GI: reports: Abdominal Pain, Abdominal Swelling, Nausea, Vomiting : reports: Reviewed and negative Skin: reports: Reviewed and negative Musculoskeletal: reports: Reviewed and negative Neurologic: reports: Reviewed and negative Psychiatric: reports: Reviewed and negative Endocrine: reports: Reviewed and negative Immunocompromised: reports: Reviewed and negative PD PAST MEDICAL HISTORY - Past Medical History Past Medical History: Yes Respiratory: COPD Endocrine/Autoimmune: Type 2 diabetes - Past Surgical History Past Surgical History: Yes General: Colonoscopy - Present Medications Home Medications: Ambulatory Orders Medication Instructions Recorded Confirmed Terazosin HCl 10 mg PO QPM 02/05/19 03/15/20 - Allergies Allergies/Adverse Reactions: Allergies Allergy/AdvReac Type Severity Reaction Status Date / Time sulfamethoxazole Allergy Unknown Verified 03/15/20 07:56 [From ] trimethoprim [From ] Allergy Unknown Verified 03/15/20 07:56 - Social History Does the pt smoke?: Yes Smoking Status: Current every day smoker Does the pt drink ETOH?: Yes Does the pt have substance abuse?: No - Immunizations Immunizations are current?: Yes - POLST Patient has POLST: No PD ED PE NORMAL - Vitals Vital signs reviewed: Yes - General General: Alert and oriented X 3, No acute distress, Well developed/nourished - HEENT HEENT: Atraumatic, PERRL, EOMI, Moist mucous membranes - Neck Neck: Supple, no meningeal sign - Cardiac Cardiac: RRR, No murmur - Respiratory Respiratory: No respiratory distress, Clear bilaterally - Abdomen Abdomen: Soft, Other (Moderate ascites; moderate left lower quadrant tenderness, no rebound or guarding) - Back Back: No CVA TTP - Derm Derm: Warm and dry, No rash, Other (Moderate pallor) - Extremities Extremities: No deformity, Other (2+ pitting edema bilateral lower extremities.) - Neuro Neuro: Alert and oriented X 3, sales warehouse driver 2-12 intact, Normal speech, Other (Motor and sensory grossly normal.) - Psych Psych: Normal mood, Normal affect Results - Vitals Vitals: Vital Signs - 24 hr 03/15/20 11:00 Heart Rate 99 Respiratory 14 Rate Blood Pressure 156/80 H O2 Saturation 100 Oxygen O2 Source Room air - Labs Labs: Laboratory Tests 03/15/20 03/15/20 03/15/20 08:10 08:10 08:10 WBC 9.4 RBC 2.40 L Hgb 7.5 L Hct 23.2 L MCV 96.7 H MCH 31.3 H MCHC 32.3 RDW 17.0 H Plt Count 207 MPV 11.4 Neut # (Auto) 7.5 H Lymph # (Auto) 0.8 L [place] # (Auto) 0.9 Eos # (Auto) 0.0 Baso # (Auto) 0.0 Absolute Nucleated RBC 0.02 Nucleated RBC % 0.2 PT INR Sodium 135 Potassium 4.4 Chloride 100 L Carbon Dioxide 21 Anion Gap 14.0 H BUN 28 H Creatinine 1.2 Estimated GFR (MDRD) 61 L Glucose 234 H Calcium 8.4 L Total Bilirubin 3.5 H AST 94 H ALT 65 H Alkaline Phosphatase 63 Total Protein 5.0 L Albumin 2.5 L Globulin 2.5 Albumin/Globulin Ratio 1.0 Lipase 48 Blood Type O POSITIVE Antibody Screen NEGATIVE Crossmatch IS Only See Detail 03/15/20 10:35 WBC RBC Hgb Hct MCV MCH MCHC RDW Plt Count MPV Neut # (Auto) Lymph # (Auto) [place] # (Auto) Eos # (Auto) Baso # (Auto) Absolute Nucleated RBC Nucleated RBC % PT 18.1 H INR 1.7 H Sodium Potassium Chloride Carbon Dioxide Anion Gap BUN Creatinine Estimated GFR (MDRD) Glucose Calcium Total Bilirubin AST ALT Alkaline Phosphatase Total Protein Albumin Globulin Albumin/Globulin Ratio Lipase Blood Type Antibody Screen Crossmatch IS Only - Rads (name of study) CT abd/pelvis Radiology: Final report received, EMP read indepedently, See rad report (large liver mass, susp for HCC; possible vascular invasion) PD MEDICAL DECISION MAKING - ED course Complexity details: reviewed results, re-evaluated patient, considered differential, d/w patient ED course: Patient was worked up with labs and ultimately, CT scan of the abdomen and pelvis. He was given Zofran and Protonix in the emergency department. The patient was normotensive, and his heart rate had normalized since leaving the emergency department several days ago. He did not demonstrate any evidence of ongoing upper GI bleed at this time, and the history indicated he had not had any further bleeding of significance since leaving last time. However, the pt's hemoglobin was noted to have dropped to 7.5, about the level it was before his transfusion a few days ago. His CT showed a liver mass, consistent with hepatocellular carcinoma, with possible invasion into hepatic vasculature. I discussed the case with Dr. Pina, who stated he could take on the case with Dr. Jaime De La Cruz, but would like the hospitalist to admit. He did not feel that the tumor/vascular invasion posed an acute issue, and could be followed up as an outpatient. I discussed the case with Dr. Pollard, who, after discussing the case with Dr. De La Cruz directly, agreed to admit the pt to her service. Pt was not transfused in the ED, as he was hemodynamically stable, but type and screen was obtained. Departure - Departure Disposition: 66 [facility] DC/Xfer Clinical Impression: Varices of esophagus determined by endoscopy GI bleed Qualifiers: GI bleed type/associated pathology: unspecified gastrointestinal hemorrhage ty pe Qualified Code(s): K92.2 - Gastrointestinal hemorrhage, unspecified Anemia Qualifiers: Anemia type: other cause Other causes of anemia: acute posthemorrhagic Qualified Code(s): D62 - Acute posthemorrhagic anemia Condition: Serious Discharge Date/Time: 03/15/20 12:37
[2020-03-15] MEDS ORDERED: ONDANSETRON 4 MG/2 ML VIAL IVP STA (08:47)
[2020-03-15] MEDS ORDERED: IOVERSOL 320 100 ML VIAL IVP ONE ×2 (10:02→12:30)
--- NOTE | 2020-03-15 10:36 | CT Report ---
PROCEDURE: Abdomen/Pelvis W INDICATIONS: Abdominal pain CONTRAST: IV CONTRAST: Optiray 320 ml: 100 PO CONTRAST: *NO PO CONTRAST TECHNIQUE: After the administration of intravenous contrast, 5 mm thick sections acquired from the diaphragms to the symphysis. 5 mm thick coronal and sagittal reformats were acquired. For radiation dose reducti on, the following was used: automated exposure control, adjustment of mA and/or kV according to grant ent size. COMPARISON: None. FINDINGS: These images demonstrate cirrhosis with large volume ascites throughout the abdomen and pelvis. There is a heterogeneous and ill-defined mass in the right hepatic lobe measuring approximately 11 cm whic h is highly suspicious for HCC (series 3 image 16). This was not present on 03/07/2019 and ultrasound or 08/23/2015 CT. Areas of abrupt cut off of the portal and hepatic veins are suspicious for venous i nvasion. Nonspecific filling defect is present in the IVC at the level of the hepatic dome which is a lso suspicious for either for tumor thrombus or bland thrombus. Multiple upper abdominal varices are redemonstrated. Spleen is normal in size. Unremarkable kidneys and adrenal glands. Pancreas is within normal limits. Gallbladder contains sludg e and few small stones. Thickening of the transverse and right colon with adjacent inflammatory barrios es, likely portal colopathy. No abnormally dilated loop of bowel. IMPRESSION: Cirrhotic liver with the right hepatic lobe mass highly suspicious for HCC. Areas of potential vascul ar invasion by the mass as described above. Hepatic protocol MRI is recommended for further assessmen t. Large volume ascites throughout the abdomen and pelvis. Portal colopathy involving the right and transverse colon. Reviewed by: Kirit Smith MD on 03/15/2020 10:34 AM PST Approved by: Kirit Smith MD on 03/15/2020 10:34 AM PST Station ID: [id number]
[2020-03-15 10:53] LABS: INR 1.7 (0.8-1.2); PT - PROTHROMBIN TIME 18.1 secs (9.9-12.6)
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
[2020-03-15] MEDS ORDERED: THIAMINE INJ 100 MG in SODIUM CHLORIDE 0.9% 100 ML IV SCH (12:00)
[2020-03-15] MEDS: LACTATED RINGERS 1,000 ML IV SCH (12:50)
[2020-03-15] MEDS: MORPHINE 2 MG/ML CARPUJECT IVP PRN ×3 (13:03→20:24)
[2020-03-15] MEDS: OCTREOTIDE 500 MCG in SODIUM CHLORIDE 0.9% 100ML 99 ML IV SCH ×2 (13:10→23:09)
[2020-03-15] MEDS: METOPROLOL TARTRATE 25 MG TABLET PO SCH ×2 (13:20→20:19)
[2020-03-15] MEDS ORDERED: PROCHLORPERAZINE 10 MG/2 ML VIAL IVP PRN (13:52)
[2020-03-15] MEDS ORDERED: ONDANSETRON 4 MG/2 ML VIAL IVP PRN (13:52)
[2020-03-15] MEDS ORDERED: PROMETHAZINE INJ 25 MG in SODIUM CHLORIDE 0.9% 50 ML IV PRN (13:53)
[2020-03-15] MEDS: SODIUM CHLORIDE FLUSH 0.9% 10 ML SYRINGE IVP SCH ×2 (17:02→23:17)
--- NOTE | 2020-03-15 17:38 | PHARMACY PROGRESS NOTE ---
- Best Possible Medication History Admit Date and Time: 03/15/20 1107 Processed by: Nursing Medication History completed: Yes Patient Interview: Completed Secondary Source(s): Pharmacy records Patient records from [place] list various supplements and aspirin. Patient is not on any other prescription medications outside of terazosin. As the person ultimately responsible for medication therapy, providers are able to order a medication from an existing home medication list in [facility] via the "Reconcile Routine" prior to Confirmation of that medication by technician support engineer. Such practice is discouraged except when the physician, in their clinical judgm ent, deems that a medical need exists for a medication without regard to previous use.
[2020-03-15 18:15] LABS: BASOPHILS % (AUTO) 0.1 %; LYMPHOCYTES # (AUTO) 0.7 10^3/uL (1.5-3.5); LYMPHOCYTES % (AUTO) 6.7 %; MEAN CORPUSCULAR HEMOGLOBIN 31.1 pg (27.0-31.0); MEAN CORPUSCULAR HGB CONC 32.5 g/dL (32.0-36.0); MEAN CORPUSCULAR VOLUME 95.5 fL (80.0-94.0); MEAN PLATELET VOLUME 11.3 fL (7.4-11.4); MONOCYTES # (AUTO) 0.8 10^3/uL (0.0-1.0); MONOCYTES % (AUTO) 6.9 %; NEUTROPHILS # (AUTO) 9.3 10^3/uL (1.5-6.6); NEUTROPHILS % (AUTO) 85.8 %; PLT - PLATELET COUNT 203 10^3/uL (130-450); RED BLOOD COUNT 2.22 10^6/uL (4.70-6.10); RED CELL DISTRIBUTION WIDTH 17.2 % (12.0-15.0); WHITE BLOOD COUNT 10.9 x10^3/uL (4.8-10.8)
[2020-03-15 18:19] LABS: HGB - HEMOGLOBIN 6.9 g/dL (14.0-18.0)
[2020-03-15] MEDS: cefTRIAXone 1 GM in SODIUM CHLORIDE 0.9% MINIBAG 100 ML IV SCH (18:21)
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
[2020-03-15] MEDS: INSULIN ASPART 300 UNIT/3 ML PEN SUBQ SCH (20:15)
[2020-03-15] MEDS: PANTOPRAZOLE 40 MG VIAL IVP SCH (20:17)
[2020-03-15] MEDS: TERAZOSIN 2 MG CAPSULE PO SCH (20:22)
[2020-03-16] MEDS: LACTATED RINGERS 1,000 ML IV SCH ×2 (00:40→14:15)
[2020-03-16 00:57] LABS: BASOPHILS % (AUTO) 0.1 %; EOSINOPHILS % (AUTO) 0.3 %; LYMPHOCYTES # (AUTO) 1.7 10^3/uL (1.5-3.5); LYMPHOCYTES % (AUTO) 18.3 %; MEAN CORPUSCULAR HEMOGLOBIN 29.8 pg (27.0-31.0); MEAN CORPUSCULAR HGB CONC 31.4 g/dL (32.0-36.0); MEAN CORPUSCULAR VOLUME 94.9 fL (80.0-94.0); MONOCYTES # (AUTO) 1.3 10^3/uL (0.0-1.0); MONOCYTES % (AUTO) 13.8 %; NEUTROPHILS # (AUTO) 6.3 10^3/uL (1.5-6.6); NEUTROPHILS % (AUTO) 67.2 %; PLT - PLATELET COUNT 150 10^3/uL (130-450); RED BLOOD COUNT 2.35 10^6/uL (4.70-6.10); RED CELL DISTRIBUTION WIDTH 16.7 % (12.0-15.0); WHITE BLOOD COUNT 9.4 x10^3/uL (4.8-10.8)
[2020-03-16] MEDS: MORPHINE 2 MG/ML CARPUJECT IVP PRN ×4 (03:25→22:18)
[2020-03-16] MEDS: SODIUM CHLORIDE FLUSH 0.9% 10 ML SYRINGE IVP PRN ×2 (03:25→07:56)
[2020-03-16 05:46] LABS: BASOPHILS % (AUTO) 0.2 %; EOSINOPHILS # (AUTO) 0.1 10^3/uL (0.0-0.7); HGB - HEMOGLOBIN 7.2 g/dL (14.0-18.0); MEAN CORPUSCULAR HGB CONC 32.7 g/dL (32.0-36.0); MEAN CORPUSCULAR VOLUME 94.8 fL (80.0-94.0); MEAN PLATELET VOLUME 11.6 fL (7.4-11.4); MONOCYTES # (AUTO) 1.1 10^3/uL (0.0-1.0); MONOCYTES % (AUTO) 12.9 %; NEUTROPHILS # (AUTO) 5.4 10^3/uL (1.5-6.6); NEUTROPHILS % (AUTO) 62.6 %; PLT - PLATELET COUNT 130 10^3/uL (130-450); RED BLOOD COUNT 2.32 10^6/uL (4.70-6.10); RED CELL DISTRIBUTION WIDTH 16.6 % (12.0-15.0); WHITE BLOOD COUNT 8.7 x10^3/uL (4.8-10.8)
[2020-03-16 05:49] LABS: INR 1.6 (0.8-1.2); PT - PROTHROMBIN TIME 16.8 secs (9.9-12.6)
[2020-03-16 05:57] LABS: ALBUMIN 2.4 g/dL (3.2-5.5); BILIRUBIN,TOTAL 3.1 mg/dL (0.2-1.0); CALCIUM 8.1 mg/dL (8.5-10.3); CREATININE 1.4 mg/dL (0.6-1.2); TOTAL PROTEIN 4.8 g/dL (6.7-8.2)
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
[2020-03-16] MEDS: INSULIN ASPART 300 UNIT/3 ML PEN SUBQ SCH ×4 (07:41→21:33)
[2020-03-16] MEDS: METOPROLOL TARTRATE 25 MG TABLET PO SCH ×2 (07:50→21:33)
[2020-03-16] MEDS: cefTRIAXone 1 GM in SODIUM CHLORIDE 0.9% MINIBAG 100 ML IV SCH (07:51)
[2020-03-16] MEDS: PANTOPRAZOLE 40 MG VIAL IVP SCH ×2 (07:56→21:32)
[2020-03-16] MEDS: SODIUM CHLORIDE FLUSH 0.9% 10 ML SYRINGE IVP SCH ×2 (07:56→19:22)
[2020-03-16] MEDS ORDERED: LIDOCAINE-MPF 2% 5 ML VIAL ONE (08:16)
[2020-03-16] MEDS ORDERED: PROPOFOL 500 MG/50 ML 500 MG/50 ML VIAL ONE (08:17)
[2020-03-16] MEDS ORDERED: FOLIC ACID INJ 1 MG in SODIUM CHLORIDE 0.9% 1,000 ML IV SCH (09:00)
[2020-03-16] MEDS ORDERED: LACTATED RINGERS 1,000 ML IV ONE (10:03)
--- NOTE | 2020-03-16 10:18 | OPERATIVE REPORT ---
Operative Report - General Admit Date: 03/15/20 Procedure Date: 03/16/20 Planned Procedure: egd with banding varices Pre-Op Diagnosis: ugi bleed/ hx varices Procedure Performed: egd with banding varices Post Op Diagnosis: mild gastritis, diffuse and 2 distal esophageal varices - Procedure Note Primary Surgeon: salvador michaels Secondary Surgeon: dolores altamirano Anesthesia Technique: MAC Estimated Blood Loss (mL): 0 Complications: none
--- NOTE | 2020-03-16 10:25 | PROVIDER PROGRESS NOTE ---
Subjective - Prog Note Date Prog Note Date: 03/16/20 - Subjective Pt reports feeling: Improved Subjective: Pt reports feeling "much better" compared to yesterday. He slept "a little" overnight, "when I slept I slept well". Reports this is normal for him as he is an insomniac. Regarding his abdominal pain, the morphine has been helping and he has no pain this morning. 5L ascites fluid removed with therapeutic paracentesis, patient reports feeling relief with no further abdominal pain. General Surgery took him for upper endoscopy and banded 2 varices, reports a small amount of residual pain in the throat that has gotten better of time today. Nothing has been making it worse, morphine and ice water have helped to make it better. Denies n/v, has been tolerating chicken broth and ice water this afternoon, looking forward to going home to make crab with spaghetti noodles and carrots. Objective - Vital Signs/Intake & Output Reviewed Vital Signs: Yes Vital Signs: Vital Signs x48h Temp Pulse Pulse Resp BP BP Pulse Ox 03/16/20 10:19 77 17 103/67 96 03/16/20 10:10 36.5 C 78 20 96/56 L 97 03/16/20 10:05 67 16 95/52 L 100 03/16/20 10:00 36.8 C 69 12 93/57 L 100 03/16/20 09:55 36.8 C 72 14 96/53 L 100 03/16/20 07:50 121/68 03/16/20 07:36 36.6 C 84 16 121/68 95 03/16/20 03:32 36.8 C 85 18 123/55 L 97 Intake & Output: Intake & Output 03/13/20 03/14/20 03/15/20 03/16/20 23:59 23:59 23:59 23:59 Intake Total 2922.333 1919.833 Output Total 150 Balance 2922.333 1769.833 - Objective General Appearance: positive: No acute distress, Alert Eyes Bilateral: positive: Normal inspection ENT: positive: ENT inspection nml Neck: positive: Nml inspection Respiratory: positive: Chest non-tender, No respiratory distress, Breath sounds nml Cardiovascular: positive: Regular rate & rhythm. negative: No murmur, No gallop, Gallop/S4, Friction rub Peripheral Pulses: 2+ Radial (R), 2+ Radial (L), 2+ Dorsalis pedis (R), 2+ Dorsalis pedis (L) Abdomen: positive: Tenderness (with palpation), Abnml bowel sounds (hypoactive), Other (tense ascites, distention) Rectal: positive: Non-tender Back: positive: Nml inspection Skin: positive: Pallor Extremities: positive: Full ROM, No pedal edema Neurologic/Psychiatric: positive: Oriented x3, Motor nml, Sensation nml - Lab Results Fish Bones: 03/16/20 05:25 03/16/20 05:25 Other Labs: Lab Results x24hrs 03/16/20 03/16/20 03/16/20 Range/Units 05:25 05:25 05:25 WBC (4.8-10.8) x10^3/uL RBC (4.70-6.10) 10^6/uL Hgb (14.0-18.0) g/dL Hct (42.0-52.0) % MCV (80.0-94.0) fL MCH (27.0-31.0) pg MCHC (32.0-36.0) g/dL RDW (12.0-15.0) % Plt Count (130-450) 10^3/uL MPV (7.4-11.4) fL Neut # (Auto) (1.5-6.6) 10^3/uL Lymph # (Auto) (1.5-3.5) 10^3/uL Henderson # (Auto) (0.0-1.0) 10^3/uL Eos # (Auto) (0.0-0.7) 10^3/uL Baso # (Auto) (0.0-0.1) 10^3/uL Absolute Nucleated RBC x10^3/uL Nucleated RBC % /100WBC PT 16.8 H (9.9-12.6) secs INR 1.6 H (0.8-1.2) Sodium 134 L (135-145) mmol/L Potassium 4.8 (3.5-5.0) mmol/L Chloride 103 (101-111) mmol/L Carbon Dioxide 23 (21-32) mmol/L Anion Gap 8.0 (6-13) BUN 34 H (6-20) mg/dL Creatinine 1.4 H (0.6-1.2) mg/dL Estimated GFR (MDRD) 51 L (>89) Glucose 108 H (70-100) mg/dL Calcium 8.1 L (8.5-10.3) mg/dL Total Bilirubin 3.1 H (0.2-1.0) mg/dL AST 160 H (10-42) IU/L ALT 121 H (10-60) IU/L Alkaline Phosphatase 63 (42-121) IU/L Ammonia 40.3 H (7-35) umol/L Total Protein 4.8 L (6.7-8.2) g/dL Albumin 2.4 L (3.2-5.5) g/dL Globulin 2.4 (2.1-4.2) g/dL Albumin/Globulin Ratio 1.0 (1.0-2.2) Nasal Screen MRSA (PCR) (NEGATIVE) Blood Type Antibody Screen Crossmatch IS Only 03/16/20 03/16/20 03/15/20 Range/Units 05:25 00:50 17:56 WBC 8.7 9.4 10.9 H (4.8-10.8) x10^3/uL RBC 2.32 L 2.35 L 2.22 L (4.70-6.10) 10^6/uL Hgb 7.2 L 7.0 L* 6.9 L* (14.0-18.0) g/dL Hct 22.0 L 22.3 L 21.2 L (42.0-52.0) % MCV 94.8 H 94.9 H 95.5 H (80.0-94.0) fL MCH 31.0 29.8 31.1 H (27.0-31.0) pg MCHC 32.7 31.4 L 32.5 (32.0-36.0) g/dL RDW 16.6 H 16.7 H 17.2 H (12.0-15.0) % Plt Count 130 150 203 (130-450) 10^3/uL MPV 11.6 H 12.0 H 11.3 (7.4-11.4) fL Neut # (Auto) 5.4 6.3 9.3 H (1.5-6.6) 10^3/uL Lymph # (Auto) 2.0 1.7 0.7 L (1.5-3.5) 10^3/uL Henderson # (Auto) 1.1 H 1.3 H 0.8 (0.0-1.0) 10^3/uL Eos # (Auto) 0.1 0.0 0.0 (0.0-0.7) 10^3/uL Baso # (Auto) 0.0 0.0 0.0 (0.0-0.1) 10^3/uL Absolute Nucleated RBC 0.00 0.00 0.00 x10^3/uL Nucleated RBC % 0.0 0.0 0.0 /100WBC PT (9.9-12.6) secs INR (0.8-1.2) Sodium (135-145) mmol/L Potassium (3.5-5.0) mmol/L Chloride (101-111) mmol/L Carbon Dioxide (21-32) mmol/L Anion Gap (6-13) BUN (6-20) mg/dL Creatinine (0.6-1.2) mg/dL Estimated GFR (MDRD) (>89) Glucose (70-100) mg/dL Calcium (8.5-10.3) mg/dL Total Bilirubin (0.2-1.0) mg/dL AST (10-42) IU/L ALT (10-60) IU/L Alkaline Phosphatase (42-121) IU/L Ammonia (7-35) umol/L Total Protein (6.7-8.2) g/dL Albumin (3.2-5.5) g/dL Globulin (2.1-4.2) g/dL Albumin/Globulin Ratio (1.0-2.2) Nasal Screen MRSA (PCR) (NEGATIVE) Blood Type Antibody Screen Crossmatch IS Only 03/15/20 03/15/20 03/15/20 Range/Units 13:05 10:35 08:10 WBC (4.8-10.8) x10^3/uL RBC (4.70-6.10) 10^6/uL Hgb (14.0-18.0) g/dL Hct (42.0-52.0) % MCV (80.0-94.0) fL MCH (27.0-31.0) pg MCHC (32.0-36.0) g/dL RDW (12.0-15.0) % Plt Count (130-450) 10^3/uL MPV (7.4-11.4) fL Neut # (Auto) (1.5-6.6) 10^3/uL Lymph # (Auto) (1.5-3.5) 10^3/uL Henderson # (Auto) (0.0-1.0) 10^3/uL Eos # (Auto) (0.0-0.7) 10^3/uL Baso # (Auto) (0.0-0.1) 10^3/uL Absolute Nucleated RBC x10^3/uL Nucleated RBC % /100WBC PT 18.1 H (9.9-12.6) secs INR 1.7 H (0.8-1.2) Sodium (135-145) mmol/L Potassium (3.5-5.0) mmol/L Chloride (101-111) mmol/L Carbon Dioxide (21-32) mmol/L Anion Gap (6-13) BUN (6-20) mg/dL Creatinine (0.6-1.2) mg/dL Estimated GFR (MDRD) (>89) Glucose (70-100) mg/dL Calcium (8.5-10.3) mg/dL Total Bilirubin (0.2-1.0) mg/dL AST (10-42) IU/L ALT (10-60) IU/L Alkaline Phosphatase (42-121) IU/L Ammonia (7-35) umol/L Total Protein (6.7-8.2) g/dL Albumin (3.2-5.5) g/dL Globulin (2.1-4.2) g/dL Albumin/Globulin Ratio (1.0-2.2) Nasal Screen MRSA (PCR) NEGATIVE (NEGATIVE) Blood Type O POSITIVE Antibody Screen NEGATIVE Crossmatch IS Only See Detail ABX Reporting Has patient been on IV antibiotics over the past 48 hours?: Yes Sepsis Event Note (H) - Evaluation Current Stage of Sepsis: Ruled out Assessment/Plan - Problem List (1) Anemia Impression: Pt has known esophageal varices from previous visits, also with known alcoholic liver disease. Tolerated blood transfusion last evening, hemoglobin increased from 6.9-7.2 today. Taken to OR for endoscopy, surgical note indicates 2 distal esophageal varices were found. Plan: EGD done this morning by General Surgery Continue to monitor CBC, transfuse for Hgb <[address] [facility] as there were no beds at [facility] for us to transfer him to as verified by ER physician yesterday. Qualifiers: Anemia type: other cause Other causes of anemia: acute posthemorrhagic Qualified Code(s): D62 - Acute posthemorrhagic anemia (2) GI bleed Impression: Went this morning for endoscopy with General surgery. Operative note indicates "mild gastritis, diffuse and 2 distal esophageal varices." Transfused 1 unit PRBCs overnight, tolerated well with improvement in Hgb. No black stools or blood tinged emesis. Plan: Continue to monitor CBC, PT/INR and for s/x bleeding (hematemesis, hematochezia, melena) Continue Octreotide, Pantoprazole, Metoprolol, and Ceftriaxone for treatment. Lactated Ringers continue while NPO. Qualifiers: GI bleed type/associated pathology: unspecified gastrointestinal hemorrhage type Qualified Code(s): K92.2 - Gastrointestinal hemorrhage, unspecified (3) Upper abdominal pain Impression: CT scan completed of the abdomen, mass found on hepatic lobe. Most likely this and his massive ascites is where his pain is from. Endoscopy performed this morning, now awaiting therapeutic paracentesis. Reports good pain relief with PRN morphine and appears much more comfortable this morning. After removal of 5L ascites fluid this afternoon he reports feeling much better. Plan: Therapeutic paracentesis done, 5L removed. We will also do diagnostic imaging/cytology to see if he can make a diagnosis of the hepatocellular carcinoma. (4) Neoplasm of uncertain behavior of liver Impression: Mass found on hepatic lobe on CT yesterday. In a gentleman with hepatitis and alcoholic liver disease, strong suspicion for hepatocellular carcinoma. Hepatitis C diagnosed 2016, untreated. Awaiting liver biopsy and paracentesis for cell count. Plan: Paracentesis- send fluid for cell counts Alpha-fetoprotein pending Oncology consult Will need a liver biopsy but we do not have interventional radiology here. Will try and make arrangements expiditiously to get that going. (5) Hepatorenal syndrome Impression: Pt possibly showing signs of hepatorenal syndrome with increased creatinine and BUN from yesterday in the setting of known cirrhosis and liver disease. No elevation of creatinine was noted yesterday, today it is elevated to 1.4. Also with elevated BUN, AST, ALT, ammonia, and total bilirubin, normal alk phos and low GFR, albumin and total protein. Nursing is also documenting tea colored urine despite IV fluids (LR) running continously. Plan: Monitor creatinine with daily chem panel Continue octreotide Consider starting treatment with Midodrine and Albumin (6) Diabetes Impression: Reports diagnosis in 2006, using insulin x2 years and Metformin x2 years before stopping meds. Does not check his blood sugars at home. Started on insulin overnight, did not need any with morning BG check. Awaiting Hgb A1C for chronicity as he was not taking medications prior to admission for over 5 years. Reports he has not followed up with a PCP since his colonoscopy 4 years ago. Will likely need to go home on insulin as metformin and sulfonylureas cannot be used in light of his liver disease. Plan: Insulin Diabetic education Check Hgb A1C Qualifiers: Diabetes mellitus type: type 2 Diabetes mellitus complication status: with hyperglycemia (7) Chronic alcoholic liver disease Impression: Reports his last drink was around . Thiamine ordered. At this time we're not worried about alcohol withdrawal. Yosi been too long. He has a history of hepatitis (untreated per his report). On chart review, diagnosed with hepatitis C 09/2015. That in combination with his alcohol abuse may have led to the hepatocellular carcinoma seen on CT. Plan: We have encouraged the patient to remain alcohol free. He can never drink again. Unfortunately he is suffering the sequela of chronic alcohol liver disease and he has ascites, esophageal and gastric varices, and hepatocellular carcinoma. Prognosis is grim. (8) Constipation Impression: Reportedly feels constant urge to defecate but nothing is coming out. Intermittent loose stools. Likely related to ascites placing pressure on and compressing the bowel, causing the sensation of needing to defecate. Has not had a BM since a small watery BM yesterday in the ED. Also has had poor appetite so not much expected, as he was not noted to have large amounts of stool in the bowel on his CT yesterday. Plan: Paracentesis Qualifiers: Constipation type: unspecified constipation type Qualified Code(s): K59.00 - Constipation, unspecified (9) Nausea & vomiting Impression: Resolved. Likely due to hepatic tumor and ascites. Denies n/v this morning, reports good control with PRN antiemetics. Plan: Zofran PRN n/v Therapeutic paracentesis for ascites Qualifiers: Vomiting type: bilious vomiting Qualified Code(s): R11.14 - Bilious vomiting
--- NOTE | 2020-03-16 10:28 | ANESTHESIA POST OP EVALUATION ---
Anesthesia Post Eval - Post Anesthesia Eval Vitals: Last Vital Signs Temp 36.5 C 03/16/20 10:10 Pulse 77 03/16/20 10:19 Resp 17 03/16/20 10:19 BP 103/67 03/16/20 10:19 Pulse Ox 96 03/16/20 10:19 CV Function Including HR & BP: positive: Stable Pain Control: positive: Satisfactory Nausea & Vomiting: positive: Negative Mental Status: positive: Baseline Respiratory Status: Airway Patent Hydration Status: Satisfactory Anesthesia Complications: positive: None
[2020-03-16] MEDS: THIAMINE IV SCH (10:30)
[2020-03-16] MEDS: FOLIC ACID IV SCH (10:30)
[2020-03-16] MEDS: SODIUM CHLORIDE 0.9% IV SCH (10:30)
[2020-03-16] MEDS: OCTREOTIDE 500 MCG in SODIUM CHLORIDE 0.9% 100ML 99 ML IV SCH ×2 (10:30→22:18)
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
--- NOTE | 2020-03-16 15:34 | Ultrasound Report ---
PROCEDURE: Abdominal Paracentesis INDICATIONS: large volume ascites w HCC on CT TECHNIQUE: The indications, alternatives, benefits, risks, and complications of the procedure were explained to the patient. Written informed consent was obtained and placed in the chart. The abdomen and pelvis were examined sonographically, and an appropriate site was chosen for paracentesis. The skin was pre pared and draped in the usual sterile fashion, and 1% lidocaine was infiltrated from the skin down th rough the peritoneal surface. A 19-gauge catheter-covered needle was then introduced into the perito ermias space, the catheter was advanced and the needle was withdrawn, and thereafter peritoneal fluid w as withdrawn. The catheter was then removed and a dressing was applied. The fluid was discarded if the clinician did not order diagnostic testing of the fluid. COMPARISON: FINDINGS: Access site: Right lateral abdomen/pelvis junction body wall. Needle: One-Step centesis catheter with introducer needle. Fluid volume and description: 5 L dark red ascites removed from the right lower quadrant access site , with an appearance consistent with hemorrhagic ascites. Fluid sent for diagnostic testing: Large volume fluid, approximately 1.5 L, was provided to the [facility] laboratory for cytologic analysis as requested by the ordering health care providers. Medications: 1% lidocaine for local anaesthesia. Complications: None. IMPRESSION: 5 L old blood tinged paracentesis performed, without patient complaint or complication, considered a successful ultrasound-guided paracentesis with fluid provided for cytology analysis. Reviewed by: Geoffrey Jennings MD on 03/16/2020 3:32 PM PST Approved by: Geoffrey Jennings MD on 03/16/2020 3:32 PM PST Station ID: [id number]
[2020-03-16 15:42] LABS: BF CLARITY BLOODY; BF COLOR BLOODY; BF SOURCE PERITONEAL; CC,BF RBC 969000 /mm^3
[2020-03-16 16:34] LABS: MESOTHELIAL %, BF 0 %
[2020-03-16] MEDS ORDERED: ALBUMIN 25% 12.5 GM/50 ML VIAL IV STA (17:57)
[2020-03-16] MEDS ORDERED: LACTATED RINGERS 500 ML IV ONE (17:57)
[2020-03-16] MEDS ORDERED: BENZOCAINE/MENTHOL LOZENGE MM PRN (19:47)
[2020-03-16] MEDS: TERAZOSIN 2 MG CAPSULE PO SCH (21:34)
[2020-03-17] MEDS: SODIUM CHLORIDE FLUSH 0.9% 10 ML SYRINGE IVP SCH ×4 (00:21→12:49)
[2020-03-17] MEDS: LACTATED RINGERS 1,000 ML IV SCH ×2 (00:21→12:43)
[2020-03-17] MEDS: MORPHINE 2 MG/ML CARPUJECT IVP PRN ×5 (01:09→15:28)
[2020-03-17 06:02] LABS: BASOPHILS % (AUTO) 0.4 %; EOSINOPHILS # (AUTO) 0.1 10^3/uL (0.0-0.7); EOSINOPHILS % (AUTO) 1.6 %; LYMPHOCYTES # (AUTO) 1.2 10^3/uL (1.5-3.5); LYMPHOCYTES % (AUTO) 20.3 %; MEAN CORPUSCULAR HEMOGLOBIN 30.4 pg (27.0-31.0); MEAN CORPUSCULAR HGB CONC 31.7 g/dL (32.0-36.0); MEAN PLATELET VOLUME 11.3 fL (7.4-11.4); MONOCYTES % (AUTO) 17.3 %; NEUTROPHILS # (AUTO) 3.4 10^3/uL (1.5-6.6); NEUTROPHILS % (AUTO) 59.9 %; PLT - PLATELET COUNT 106 10^3/uL (130-450); RED BLOOD COUNT 2.27 10^6/uL (4.70-6.10); RED CELL DISTRIBUTION WIDTH 16.1 % (12.0-15.0); WHITE BLOOD COUNT 5.7 x10^3/uL (4.8-10.8)
[2020-03-17 06:14] LABS: ALBUMIN 2.4 g/dL (3.2-5.5); BILIRUBIN,TOTAL 3.2 mg/dL (0.2-1.0); CALCIUM 7.9 mg/dL (8.5-10.3); CREATININE 1.2 mg/dL (0.6-1.2); TOTAL PROTEIN 4.7 g/dL (6.7-8.2)
[2020-03-17 06:17] LABS: HGB - HEMOGLOBIN 6.9 g/dL (14.0-18.0)
[2020-03-17] MEDS: INSULIN ASPART 300 UNIT/3 ML PEN SUBQ SCH ×3 (09:02→17:04)
[2020-03-17] MEDS: SODIUM CHLORIDE 0.9% IV SCH (09:02)
[2020-03-17] MEDS: THIAMINE IV SCH (09:02)
[2020-03-17] MEDS: FOLIC ACID IV SCH (09:02)
[2020-03-17] MEDS: METOPROLOL TARTRATE 25 MG TABLET PO SCH (09:03)
[2020-03-17] MEDS: PANTOPRAZOLE 40 MG VIAL IVP SCH (09:04)
[2020-03-17] MEDS: SODIUM CHLORIDE FLUSH 0.9% 10 ML SYRINGE IVP PRN (09:05)
[2020-03-17] MEDS: cefTRIAXone 1 GM in SODIUM CHLORIDE 0.9% MINIBAG 100 ML IV SCH (09:17)
--- NOTE | 2020-03-17 09:50 | DISCHARGE SUMMARY ---
Discharge Summary Admit Date: 03/15/20 Discharge Date: 03/17/20 Discharging Provider: Dr. Lucille Pollard Primary Care Provider: Carissa Daley Code Status: Do Not Attempt Resuscitation Condition at Discharge: Fair Discharge Disposition: 01 Home, Self Care - DIAGNOSES Admission Diagnoses: 1. Anemia due to acute blood loss Pt admitted with known esophageal varices from previous visits, and known alcoholic liver disease. Found to have a new liver mass on CT of the abdomen, which also revealed varices which were the likely reason for the acute blood loss anemia. He was transfused 1 unit PRBCs on the night of admission for Hgb 6.8, increased to 7.2 post transfusion. 2. Upper abdominal pain CT scan completed of the abdomen, mass found on hepatic lobe. Most likely this is where his pain was from. Also with massive ascites that is likely contribu ting to his pain. 3. GI Bleed General Surgery consulted. Presumed to be from gastric and esophageal varices. Those are well documented on CT. 2 weeks ago had an episode of hematochezia. Started on Octreotide, Pantoprazole and Metoprolol in addition to a Lactated Ringers infusion running. No black stools or blood tinged emesis noted. 4. Nausea and Vomiting Due to hepatic tumor and ascites. PRN antiemetics ordered. 5. Chronic alcoholic liver disease Reports last drink was around Thanksgiving. Thiamine ordered. No worried about alcohol withdrawal at this time as it had been too long. Hx of untreated Hepatitis C diagnosed in 2016. That in combination with his alcohol abuse may have led to the hepatocellular carcinoma seen on CT. Encouraged Pt to remain alcohol free and should never drink again. Unfortunately he is suffering the [id number] of chronic alcohol liver disease and has ascites, esophageal and gastric varices, and hepatocellular carcinoma. Prognosis is grim. 6. Neoplastm of uncertain behavior of liver In a gentleman with hepatitis and alcoholic liver disease, strongly suspect hepatocellualar carcinoma. Certainly appears that way by radiologic exam. Al pha-fetoprotein levels pending as well as an oncology consult ordered. He will need a liver biopsy but we do not have interventional radiology here. We will try and make arrangements expeditiously to get that going. Also will send sample from paracentesis for cell count. 7. Diabetes type 2 Reports diagnosis in 2006, using insulin x2 years and then Metformin x2 years before stopping meds. Does not check his blood sugars. A1c pending. Start treatment for diabetes. Begin nutritional counseling regarding diabetes. I am going to be avoiding Metformin and sulfonylureas due to his liver disease. Unfortunately he may be relegated to using insulin. 8. Constipation Feels constant urge to defecate but nothing is coming out. Intermittent loose stool appears. So I suspect this is liquid stool moving around hard stool. However, in looking at the CT scan he does not have a lot of stool in his bowel. What he has is massive ascites. He could be having compression of his bowel with the subjective sensation of constipation. Discharge Diagnoses with Status of Each Condition: 1. Anemia (stable) Recieved 1 unit PRBCs on admission with elevation of Hgb to 7.2. Now at 6.9, will give 1 unit PRBCs and recheck hemoglobin before discharging today. No active bleeding noted, no melena or hematochezia. 2. GI Bleed (resolved) Went for endoscopy with General Surgery, who found and banded 2 esophageal varices. No further signs of bleeding. 3. Upper Abdominal Pain (stable) Likely related to combination of liver mass and ascites. Mass seen on CT abdomen. Went for therapeutic paracentesis with Radiology, 5L ascites fluid removed. Pain improved with morphine and resolved with paracentesis. Unfortunately this morning he is starting to develop ascites again and is complaining of a small amount of tenderness. 4. Neoplasm of uncertain behavior of liver (active) Mass found on CT abdomen on hepatic lobe. Strong suspicion for hepatocellular carcinoma given his history of untreated hepatitis C and alcoholic liver disease. Sample sent for diagnositc imaging/cytology after paracentesis as we are not able to perform a liver biopsy here due to not having interventional radiology. [facility] on follow up, discussion had with patient strongly encouraging him to follow up. He does not agree with the diagnosis and wants a second opinion, strongly encouraged to follow [facility] with the [facility] after discharge. Discussed his poor prognosis (likely 2 months) if he does not follow up. 5. Hepatorenal syndrome (stable) Early signs of hepatorenal syndrome given slightly elevated creatinine to 1.4, down to 1.3 at discharge. BUN, AST, ALT, ammonia and tbili also elevated, with normal alk phos and low GFR, albumin and total protein. Nursing also documenting tea colored urine despite good po intake and previous IV fluids. 6. Diabetes, type 2 (stable) Reports diagnosis in 2006 but has had poor follow up. Does not currently take medication though previously used insulin for 2 years and then metformin for 2 years. Stopped because he "did not need it anymore", though unclear if this was his own decision making or if PCP stopped the medications. Blood sugars have been elevated to the 200s and he was started on insulin this hospitalization, this morning they are in the low 100s. He was not offered insulin for discharge as he does not believe he requires medications, and should follow up with his PCP for this. 7. Chronic alcoholic liver disease (stable) Reports his last drink was around Thanksgiving. He has a history of hepatitis (untreated per his report). On chart review, diagnosed with hepatitis C 09/2015. That in combination with his alcohol abuse may have led to the hepatocellular carcinoma seen on CT. No withdrawals seen during this admission. 8. Constipation (stable) Reportedly feels constant urge to defecate but nothing is coming out. Intermittent loose stools, last BM day of admission in ER-small and watery. Likely related to ascites placing pressure on and compressing the bowel, causing the sensation of needing to defecate. Also has had poor appetite with not much stool seen on CT, so likely not much expected. 9. Nausea/Vomiting (resolved) None reported since admission, improved with therapeutic paracentesis and use of anti-emetics prn. 10. Schizophrenic/paranoid delusional thought processes (stable) Pt exhibiting paranoid/delusional thought processes that have interfered with his care both in this hospitalization and in the past. He believes his son-in-law is poisoning him, which led to his current cancer diagnosis despite having clearly documented hepatitis C that went untreated for years in addition to alcoholic hepatitis, both high risk factors for hepatocellular carcinoma. He also discusses his desire to take his Jaguar and move to [place] in the same breath as his desire to move into assisted living because he believes he is unable to care for himself or drive to follow up appointments. On review of his medical records it is clear that his delusions have affected his care and ability to follow up, as he would frequently request appointments for treatment and then not follow through. Per discussion with his , he has done this for many years and will have a paranoid delusion that he then perseverates on and there is no talking him out of it. He does not have a formal schizophrenia or mental health diagnosis, but he is alert and oriented x3 while sharing his paranoid delusions with nursing staff and his team and does not appear to be suffering from encephalopathy (ammonia level on the low end of elevated, did not require lactulose). - HPI History of Present Illness: 60 year old male with past hx type 2 diabetes and alcohol abuse brought in by medics with complaints of increased abdominal pain, nausea, vomiting, and constipation. He reportedly vomited orange juice in the rig. Patient was seen in this ED several days ago for coffee-ground emesis and was found to be anemic and to have ascites at that time. He left AMA after not being able to be admitted here and no beds available elsewhere. He was given a prescription for omeprazole that he did not fill. His abdomen has slowly gotten more distended and is "putting pressure on my diaphragm" making it difficult to breathe in addition to increasing his pain. The abdominal pain is increased over the LUQ, tender to palpation. The pain is constant and he is guarding his side a little when palpated. Nothing has helped to make it better. He also reports that since he has struggled with constipation and has been unable to have a regular bowel movement. He has not had a "normal" formed bowel movement in over 2 weeks but had a small loose stool this morning in the Emergency Department. Appetite has been poor. He reports he has not had further coffee-ground emesis or black stools. He continues to report nausea with some vomiting, no blood noted. Reports feeling weak and fatigued. Denies fever but has had some chills and feeling cold. Regarding his diabetes, he does not check his blood sugars. Diagnosed in 2006, he took insulin for 2 years and then Metformin for 2 years before stopping medications because he "didn't need them." Denies peripheral neuropathy, blurry vision or vision changes. Blood sugars in the ED this morning was 234. - CONSULTS | PROCEDURES Consultations: General Surgery, Radiology Procedures: Endoscopy with banding of 2 varices Therapeutic Paracentesis - HOSPITAL COURSE Hospital Course: Pt admitted from the ER with anemia from acute blood loss s/p GI bleed, pain and nausea in addition to feeling constipated. On hospital day 1, Hgb 6.9, transfused 1 unit PRBCs with improvement to 7.2. Noted to have massive ascites and distention. CT found a mass on the hepatic lobe, likely causing the pain, i n addition to esophageal varices. Pain, nausea and constipation also likely related to his ascites. He was given morphine and antiemetics prn with some relief. Also was started on insulin for blood sugars in the 200s, though he does not take insulin at home. On hospital day 2 he was taken for endoscopy where General Surgery banded 2 esophageal varices. Additionally, 5L ascites fluid was removed via therapeutic paracentesis by Radiology. A sample was sent to pathology for cell count and cytology. Tolerated a clear liquid and then general diet after the paracentesis. Has not had any further nausea. On hospital day 3, day of discharge, patient was informed more fully of his possible diagnosis and poor prognosis. Discussed at length his need to continue follow up given past history of not following through. He is requesting a second opinion and was instructed to follow up with his PCP or the [facility]. His blood sugars are in the 100s this morning and given that he was not previously c hecking his blood sugars or using insulin he will be discharged without it and with instructions to follow up with his PCP. Unfortunately he is starting to accummulate ascites fluid already and is feeling slightly uncomfortable. It is not enough to perform an additional therapeutic paracentesis, and he was instructed to maintain follow up for this. His hbg is 6.9, and he has had no hematochezia, melena, hematuria or hematemesis. Of note, throughout hospital stay, Pt exhibited delusional and paranoid thinking pertaining to his diagnoses. Discussion was had with his and he has never been diagnosed with an underlying mental health disease though at baseline for many years has been par anoid and harbored delusional ideas which have impacted his medical decision making leading to poor follow up and follow through. - ALLERGIES Allergies/Adverse Reactions: Allergies Allergy/AdvReac Type Severity Reaction Status Date / Time sulfamethoxazole Allergy Unknown Verified 03/15/20 07:56 [From ] trimethoprim [From ] Allergy Unknown Verified 03/15/20 07:56 - MEDICATIONS Home Medications: Ambulatory Orders Medication Instructions Recorded Confirmed Metoprolol Tartrate [Lopressor] 25 mg PO BID #60 tablet 03/17/20 Pantoprazole [Protonix] 40 mg PO DAILY #30 tablet 03/17/20 - PHYSICAL EXAM AT DISCHARGE General Appearance: positive: No acute distress Eyes Bilateral: positive: Normal inspection ENT: positive: ENT inspection nml Neck: positive: Nml inspection Respiratory: positive: Chest non-tender, No respiratory distress, Breath sounds nml Cardiovascular: positive: Regular rate & rhythm. negative: No murmur, No gallop, Gallop/S4, Friction rub Peripheral Pulses: positive: 2+ Abdomen: positive: Tenderness, Abnml bowel sounds (hypoactive bowel tones), Other (ascites, distention) Rectal: positive: Non-tender Back: positive: Nml inspection Skin: positive: Pallor Extremities: positive: Non-tender, Full ROM, No pedal edema - LABS Result Diagrams: 03/17/20 16:36 03/17/20 05:50 - DIAGNOSTIC IMAGING Diagnostic Imaging Results: Final report reviewed - SEPSIS Current Stage of Sepsis: Ruled out
[2020-03-17] MEDS: OCTREOTIDE 500 MCG in SODIUM CHLORIDE 0.9% 100ML 99 ML IV SCH (10:36)
--- NOTE | 2020-03-17 11:47 | Discharge Plan ---
Discharge Plan Problem Reviewed?: Yes Disposition: Home, Self Care Condition: Fair Prescriptions: Metoprolol Tartrate [Lopressor] 25 mg PO BID #60 tablet Pantoprazole [Protonix] 40 mg PO DAILY #30 tablet Diet: Low Sodium Activity Restrictions: Activity as Tolerated Shower Restrictions: No Driving Restrictions: No Instruction Topics: Cirrhosis, ED Diet Low Salt 2Gm Health Concerns: You presented to our emergency room with pain in the left side of your abdomen. You have had gradual weakness and fatigue over the last several months. You have a known history of hepatitis C and alcoholic liver disease. [facility] and a [facility] care provider office here on [facility]. You believe your first diagnosis was back in 2005 or 2006. For various reasons you have been unable to follow through with treatment of the hepatitis C or the cirrhosis of the liver. You had an episode of black stool a week prior to admission. At that time we felt you are having an upper GI bleed. We were unable to admit you here and while we were in the midst of looking for a hospital that would take you, you felt like you needed to leave against medical advice. While you have not had further bleeding such as black stools or vomitting of blood, you began to have left mid abdominal pain. We have found y ou to have tense fluid inside your belly causing quite a bit of pressure against your abdominal cavity causing a tense, balloon like abdomen. Pressing of the bowels and a sense of contipation. The fluid is from end-stage liver disease due to alcoholic liver disease and hepatitis C that has been untreated. Unfortunately we have also found you to have a new liver tumor that is starting to overtake the normal anatomy of the liver and to press on the blood vessels between your liver and spleen. Treatment consisted of blood transfusion. Banding the varicose veins of your esophagus to stop them from bleeding. And removal of some of the fluid in your abdomen (5 liters) to make you comfortable. Overall, this health status has a very poor prognosis. While you wish to be a DO NOT RESUSCITATE, you are still very interested in seeking an opinion from your primary care provider and gastroenterology oncology to see if there is treatment for the probable liver cancer. Plan of Treatment: 1. We are stopping your Terazosin in for blood pressure management. We would prefer you to be on metoprolol which is a pill that helps lower blood pressure within the liver and control bleeding from the varicose veins of the esophagus. 2. Please eat a less than 2000 mg sodium diet on a daily basis. This will help reduce the amount of fluid that accumulates in your abdomen 3. Please see SEVERO Hansen at the [facility] in [place]. He is your new primary care provider. He has already made a referral for you to see gastroenterology/oncology for an opinion about the liver. They may be scheduling you for a liver biopsy. 4. We have discussed hospice services for you. If you end up not getting treatment, please have SEVERO Hansen refer you for hospice. This will help you and your be taking care of at home. 5. Social work has given you options with regards to Meals on Wheels, home health physical therapy No Smoking: If you smoke, Please STOP! Call for help.
[2020-03-17 13:42] LABS: HEPATITIS A IGM NON-REACTIVE (NON-REACTIVE); HEPATITIS B SURFACE ANTIGEN NON-REACTIVE (NON-REACTIVE); HEPATITIS C ANTIBODY REACTIVE (NON-REACTIVE)
[2020-03-17 16:44] LABS: MEAN CORPUSCULAR HEMOGLOBIN 29.7 pg (27.0-31.0); MEAN CORPUSCULAR HGB CONC 31.4 g/dL (32.0-36.0); MEAN CORPUSCULAR VOLUME 94.8 fL (80.0-94.0); MEAN PLATELET VOLUME 11.8 fL (7.4-11.4); RED BLOOD COUNT 2.69 10^6/uL (4.70-6.10); RED CELL DISTRIBUTION WIDTH 16.6 % (12.0-15.0); WHITE BLOOD COUNT 6.9 x10^3/uL (4.8-10.8)
[2020-03-17 18:04] VITALS: BP 144/65
--- OUTSIDE RECORDS SUMMARY | 2020-03-21 01:02 | EXTERNAL MEDICAL SUMMARY RPT | Continuity of Care Document ---
:1960 Demographics Phone Unavailable Preferred Language Surinamese Marital Status Unknown Mandaen Affiliation Unknown Race Unknown Ethnic Group Unknown Author Organization [place] Address [address] [phone] Phone Care Team Providers Name Role Phone Jackie Unavailable Unavailable Jade Unavailable Unavailable Unavailable Unavailable Karen Unavailable Unavailable Raymond Unavailable Unavailable Problems date description facility 2015-08-23 13:54 UNSPECIFIED VIRAL HEPATITIS C [facility] WITHOUT HEPATIC COMA 2015-08-23 13:54 TYPE 2 DIABETES MELLITUS WITHOUT [facility] COMPLICATIONS 2015-08-23 13:54 ALCOHOL DEPENDENCE, UNCOMPLICATED [facility] 2015-08-23 13:54 NICOTINE DEPENDENCE, UNSPECIFIED, [facility] UNCOMPLICATED 2015-08-23 13:54 CHRONIC OBSTRUCTIVE PULMONARY [facility] DISEASE, UNSPECIFIED 2015-08-23 13:54 NONINFECTIVE GASTROENTERITIS AND [facility] COLITIS, UNSPECIFIED 2015-08-23 13:54 DVRTCLOS OF INTEST, PART UNSP, W/O i [facility] PERF OR ABSCESS W/O BLEED 2015-08-23 13:54 ALCOHOLIC CIRRHOSIS OF LIVER [facility] WITHOUT ASCITES 2015-08-23 13:54 CALCULUS OF GALLBLADDER W/O [facility] CHOLECYSTITIS WITH OBSTRUCTION 2015-08-23 13:54 HEMOPTYSIS [facility] 2015-08-23 13:54 UNSPECIFIED ABDOMINAL PAIN [facility] 2015-08-23 13:54 NAUSEA WITH VOMITING, UNSPECIFIED [facility] 2015-09-07 08:14 UNSPECIFIED VIRAL HEPATITIS C [facility] WITHOUT HEPATIC COMA 2015-09-07 08:14 ESSENTIAL (PRIMARY) HYPERTENSION [facility] 2015-09-07 08:14 ENLARGED PROSTATE WITH LOWER [facility] URINARY TRACT SYMPTOMS 2015-09-07 08:14 ENCOUNTER FOR SCREENING, [facility] UNSPECIFIED 2016-01-11 06:35 NUTRITIONAL ANEMIA, UNSPECIFIED [facility] 2016-11-28 06:42 DISORDER OF PENIS, UNSPECIFIED [facility] 2016-11-28 06:42 OTH PERSONAL RISK FACTORS, NOT [facility] ELSEWHERE CLASSIFIED 2016-12-04 08:00 DISORDER OF PENIS, UNSPECIFIED [facility] 2016-12-04 08:00 OTH PERSONAL RISK FACTORS, NOT [facility] ELSEWHERE CLASSIFIED 2016-12-04 15:08 UNSPECIFIED VIRAL HEPATITIS C [facility] WITHOUT HEPATIC COMA 2016-12-04 15:08 NUTRITIONAL ANEMIA, UNSPECIFIED [facility] 2016-12-04 15:08 THROMBOCYTOPENIA, UNSPECIFIED [facility] 2016-12-04 15:08 ABNORMAL LEVELS OF OTHER SERUM [facility] ENZYMES 2016-12-18 07:19 UNSPECIFIED VIRAL HEPATITIS C [facility] WITHOUT HEPATIC COMA 2016-12-18 07:19 UNSPECIFIED CIRRHOSIS OF LIVER [facility] 2016-12-18 07:19 PORTAL HYPERTENSION [facility] 2016-12-18 07:19 CALCULUS OF GALLBLADDER W/O [facility] CHOLECYSTITIS W/O OBSTRUCTION 2017-07-07 08:00 NUTRITIONAL ANEMIA, UNSPECIFIED [facility] 2017-07-07 08:00 [facility]ROMBOC[facility]TOPENIA[facility] 2017-07-07 08:00 UNSPECIFIED CIRRHOSIS OF LIVER [facility] 2019-01-26 14:05 TYPE 2 DIABETES MELLITUS WITHOUT [facility] COMPLICATIONS 2019-01-26 14:05 NICOTINE DEPENDENCE, UNSPECIFIED, [facility] UNCOMPLICATED 2019-01-26 14:05 PAIN IN LEFT ANKLE AND JOINTS OF [facility] LEFT FOOT 2019-01-26 14:05 UNSPECIFIED INJURY OF LEFT ANKLE, [facility] INITIAL ENCOUNTER 2019-01-26 14:05 OVEREXERTION FROM PROLONGED STATIC [facility] OR AWKWARD POSTURES, INIT 2019-02-05 09:14 TYPE 2 DIABETES MELLITUS WITHOUT [facility] COMPLICATIONS 2019-02-05 09:14 NICOTINE DEPENDENCE, UNSPECIFIED, [facility] UNCOMPLICATED 2019-02-05 09:14 CALCULUS OF GALLBLADDER W/O [facility] CHOLECYSTITIS W/O OBSTRUCTION 2019-02-05 09:14 UPPER ABDOMINAL PAIN, UNSPECIFIED [facility] 2019-02-05 09:14 BILI[address] VOMITING [facility] [place] 2020-03-11 17:12 UNSPECIFIED VIRAL HEPATITIS B [facility] WITHOUT HEPATIC COMA 2020-03-11 17:12 UNSPECIFIED VIRAL HEPATITIS C [facility] WITHOUT HEPATIC COMA 2020-03-11 17:12 ACUTE POSTHEMORRHAGIC ANEMIA [facility] 2020-03-11 17:12 TYPE 2 DIABETES MELLITUS WITHOUT [facility] COMPLICATIONS 2020-03-11 17:12 ALCOHOL ABUSE, UNCOMPLICATED [facility] 2020-03-11 17:12 NICOTINE DEPENDENCE, UNSPECIFIED, [facility] UNCOMPLICATED 2020-03-11 17:12 SECONDARY ESOPHAGEAL VARICES WITH [facility] BLEEDING 2020-03-11 17:12 CHRONIC OBSTRUCTIVE PULMONARY [facility] DISEASE, UNSPECIFIED 2020-03-11 17:12 UNSPECIFIED CIRRHOSIS OF LIVER [facility] 2020-03-11 17:[address] [facility] [place] 2020-03-11 17:12 TACHYCARDIA, UNSPECIFIED [facility] 2020-03-11 17:[address] [facility] [place] 2020-03-11 17:12 CONTACT W AND EXPOSURE TO OTH [facility] VIRAL COMMUNICABLE D 2020-03-11 17:12 PROC/TRTMT NOT CRD OUT BEC PT [facility] DECISION FOR OTH CONCHIS Allergies date description facility ADHESIVE \T\ TAPE [facility] [place] CLARITHROMYCIN [facility] DO[facility]CYCLINE [facility] LISINOPRIL [facility] METRONIDAZOLE [facility] MORPHINE [facility] [place] STREPTOMYCIN BASE [facility] [place] SULFAMETHOXAZOLE-TRIMETHOPRIM [facility] NO KNOWN ENVIRONMENTAL ALLERGIES [facility] ASPIRIN [facility] AZITHROMYCIN [facility] GRASS POLLEN [facility] LANSOPRAZOLE [facility] OPIOIDS - MORPHINE ANALOGUES [facility] PENICILLINS [facility] TUBERCULIN PPD [facility] NO ALLERGY INFORMATION AVAILABLE [facility] NSAIDS (NON-STEROIDAL ANTI-INFLAMMATORY DRUG) [facility] PENICILLINS [facility] SULFA (SULFONAMIDE ANTIBIOTICS) [facility] NO KNOWN ALLERGIES [facility] LATEX [facility]AZINE [facility] M[facility]PHINE [facility] CODEINE [facility] LOVASTATIN [facility] LACTOSE [facility] GARLIC [facility] SULFAMETHOXAZOLE [facility] FENTANYL [facility] SIMVASTATIN [facility] AZITHROMYCIN [facility] TRAMADOL [facility] ENOXAPARIN [facility] RANITIDINE [facility] ATORVASTATIN [facility] DULOXETINE [facility] ROSUVASTATIN [facility] OXYCODONE-ACETAMINOPHEN [facility] COENZYME Q10 [facility] Penicillins [facility] sulfamethoxazole [facility] trimethoprim [facility] NO KNOWN ALLERGIES [facility] CAT DANDER [facility] sulfamethoxazole [facility] trimethoprim [facility] BEE VENOM PROTEIN (HONEY BEE) [facility] MORPHINE [facility] ZOLPIDEM [facility] Results Social History date description facility [id number]
== END 2020-03-17 18:30 | disposition home or self-care (01) | DRG 432 ==
LOC: EDUNIT# → ED 07:39 → ICU 11:07 → MS2 03-16 16:49
PROVIDERS: ADMIT Specialist; ATTEND Specialist
PROC: 0W9G3ZX Drainage of Peritoneal Cavity, Percutaneous Approach, Diagnostic (ICD-10-PCS; 2020-03-16)
PROC: 06L38CZ Occlusion of Esophageal Vein with Extraluminal Device, Via Natural or Artificial Opening Endoscopic (ICD-10-PCS; principal; 2020-03-16 09:00)
PROC: 30233N1 Transfusion of Nonautologous Red Blood Cells into Peripheral Vein, Percutaneous Approach (ICD-10-PCS; 2020-03-17)
DX: K70.11 Alcoholic hepatitis with ascites (principal); I85.11 Secondary esophageal varices with bleeding; K76.7 Hepatorenal syndrome; C22.7 Other specified carcinomas of liver; D62 Acute posthemorrhagic anemia; F20.0 Paranoid schizophrenia; F10.10 Alcohol abuse, uncomplicated; B19.20 Unspecified viral hepatitis C without hepatic coma; E11.65 Type 2 diabetes mellitus with hyperglycemia; T38.3X6A Underdosing of insulin and oral hypoglycemic [antidiabetic] drugs, initial encounter; Z91.128 Patient's intentional underdosing of medication regimen for other reason; J44.9 Chronic obstructive pulmonary disease, unspecified; F17.210 Nicotine dependence, cigarettes, uncomplicated; K29.70 Gastritis, unspecified, without bleeding; K59.09 Other constipation; Z66 Do not resuscitate; Z79.899 Other long term (current) drug therapy
CPT/HCPCS: 36415; 49083; 74177; 80053; 80074; 82105; 82140; 83690; 85025; 85027; 85610; 86850; 86900; 86901; 86920; 87070; 87150; 87205; 89051; 96361; 96374; 99284; 99285; A9270; J3411; J7120; P9016; P9047; Q9967; J8499

== ENCOUNTER 2020-03-19 09:38 | Outpatient (CLI) | payer OTHER | END 2020-03-19 09:39 | disposition critical access hospital (66) | LOC: EMS 09:38 | PROVIDERS: ATTEND Surgery | DX: R10.9 Unspecified abdominal pain (principal); R06.00 Dyspnea, unspecified | CPT/HCPCS: A0425; A0427 ==

== ENCOUNTER 2020-03-19 09:57 | Emergency (ER) | payer OTHER ==
--- NOTE | 2020-03-19 10:32 | XRAY Report ---
PROCEDURE: Chest 1 View X-Ray INDICATIONS: chest pain TECHNIQUE: One view of the chest was acquired. COMPARISON: . FINDINGS: Surgical changes and devices: None. Lungs and pleura: No pleural effusions or pneumothorax. Lungs are clear. Mediastinum: Mediastinal contours appear normal. Heart size is normal. Bones and chest wall: No suspicious bony lesions. Overlying soft tissues appear unremarkable. IMPRESSION: No acute cardiopulmonary disease process. Reviewed by: Teressa Rice MD, PhD on 03/19/2020 10:30 AM [facility] Approved by: Teressa Rice MD, PhD on 03/19/2020 10:30 AM [facility] Station ID: [id number]
--- NOTE | 2020-03-19 10:44 | ED Physician Documentation ---
PD HPI DYSPNEA - Stated complaint Stated Complaint: SOA - Chief complaint Chief Complaint: Abd Pain - History obtained from History obtained from: Patient, EMS - History of Present Illness Timing - onset: Yesterday Timing - onset during: Rest Timing - duration: Days (2) Timing - details: Gradual onset, Still present Inciting event(s): Other (reaccumulation of ascites) Worsened by: Exertion, Coughing Associated symptoms: Bilateral edema. No: Fever, Cough, Hemoptysis, Wheezing, Chest pain / discomfort, Palpitations, Diaphoresis Similar symptoms before: Diagnosis (ascites) Recently seen: Emergency Dept, Admitted - Additional information Additional information: 60-year-old male with a history of untreated hepatitis C and alcoholic cirrhosis has developed hepatocellular carcinoma and has had a recent admission to the hospital after he had an upper GI bleed and he had banding of [address] De La Cruz. He has not had any further blood out he has had some vomiting even today. He states that his ascites has reaccumulated rapidly and he is feeling that his giving him some trouble breathing. He has not been able to establish follow-up for oncology or for interventional radiology to do biposy. Review of Systems Constitutional: denies: Fever Eyes: denies: Decreased vision Ears: denies: Ear pain Nose: denies: Congestion Throat: denies: Sore throat Cardiac: denies: Chest pain / pressure, Palpitations Respiratory: reports: Dyspnea. denies: Cough, Wheezing GI: reports: Abdominal Pain, Abdominal Swelling, Nausea, Vomiting : denies: Dysuria, Frequency Skin: denies: Rash Musculoskeletal: reports: Extremity swelling. denies: Neck pain, Back pain, Ext remity pain Neurologic: reports: Generalized weakness. denies: Focal weakness, Numbness PD PAST MEDICAL HISTORY - Past Medical History Respiratory: COPD Neuro: Head injury Endocrine/Autoimmune: Type 2 diabetes GI: GI bleed, Hepatitis : Other HEENT: None Psych: None Musculoskeletal: Fatigue Derm: None - Past Surgical History Past Surgical History: Yes General: Colonoscopy - Present Medications Home Medications: Ambulatory Orders Medication Instructions Recorded Confirmed Pantoprazole [Protonix] 40 mg PO DAILY #30 tablet 03/17/20 03/19/20 Furosemide [Lasix] 40 mg PO DAILY #20 tablet 03/19/20 Spironolactone [Aldactone] 25 mg PO DAILY #20 tablet 03/19/20 - Allergies Allergies/Adverse Reactions: Allergies Allergy/AdvReac Type Severity Reaction Status Date / Time sulfamethoxazole Allergy Unknown Verified 03/19/20 10:11 [From ] trimethoprim [From ] Allergy Unknown Verified 03/19/20 10:11 - Social History Does the pt smoke?: No Smoking Status: Never smoker Does the pt drink ETOH?: Yes Does the pt have substance abuse?: No - Immunizations Immunizations are current?: Yes - POLST Patient has POLST: No POLST Status: Full Code PD ED PE NORMAL - Vitals Vital signs reviewed: Yes (hypertensive mild ) - General General: Alert and oriented X 3, No acute distress, Well developed/nourished - HEENT HEENT: Atraumatic, PERRL, EOMI - Neck Neck: Supple, no meningeal sign, No bony TTP - Cardiac Cardiac: RRR, No murmur - Respiratory Respiratory: No respiratory distress, Clear bilaterally - Abdomen Abdomen: Other (The abdomen is tense distended mildly generally tender without guarding or rebound there is no caput present. The site of the prior paracentesis still has the film tape over it and there is no evidence of inflammation to the site or leakage.) - Back Back: No CVA TTP, No spinal TTP - Derm Derm: Normal color, Warm and dry, No rash - Extremities Extremities: No deformity, Other (pitting edema to both legs to the knee) Results - Vitals Vitals: Vital Signs - 24 hr 03/19/20 03/19/20 03/19/20 09:59 10:22 11:07 Temperature 36.7 C Heart Rate 87 95 84 Respiratory 18 19 21 Rate Blood Pressure 145/76 H 134/82 H O2 Saturation 99 96 99 03/19/20 03/19/20 03/19/20 11:30 12:00 12:31 Temperature Heart Rate 85 86 101 H Respiratory 22 21 22 Rate Blood Pressure 148/74 H 143/76 H 140/79 H O2 Saturation 99 98 97 03/19/20 03/19/20 03/19/20 13:00 13:39 13:50 Temperature Heart Rate 90 96 87 Respiratory 18 20 18 Rate Blood Pressure 145/82 H 158/81 H 158/80 H O2 Saturation 95 96 98 03/19/20 03/19/20 03/19/20 14:00 14:11 14:30 Temperature Heart Rate 93 80 81 Respiratory 19 16 22 Rate Blood Pressure 146/76 H 141/66 H O2 Saturation 99 98 97 03/19/20 03/19/20 03/19/20 14:52 15:00 15:30 Temperature Heart Rate 83 93 80 Respiratory 18 25 H 17 Rate Blood Pressure 141/88 H 142/69 H 128/58 L O2 Saturation 100 98 99 Oxygen O2 Source Room air - Labs Labs: Microbiology 03/19/20 13:50 Body Fluid Culture - Preliminary Peritoneal Fluid Laboratory Tests 03/19/20 03/19/20 03/19/20 10:20 10:30 10:30 WBC RBC Hgb Hct MCV MCH MCHC RDW Plt Count MPV Neut # (Auto) Lymph # (Auto) [place] # (Auto) Eos # (Auto) Baso # (Auto) Absolute Nucleated RBC Nucleated RBC % PT 17.1 H INR 1.6 H Sodium 135 Potassium 4.4 Chloride 102 Carbon Dioxide 23 Anion Gap 10.0 BUN 21 H Creatinine 1.0 Estimated GFR (MDRD) 76 L Glucose 137 H Lactic Acid Calcium 8.4 L Total Bilirubin 4.2 H AST 108 H ALT 126 H Alkaline Phosphatase 72 Ammonia Total Protein 5.6 L Albumin 2.6 L Globulin 3.0 Albumin/Globulin Ratio 0.9 L Lipase 71 H Urine Color Urine Clarity Urine pH Ur Specific [place] Urine Protein Urine Glucose (UA) Urine Ketones Urine Occult Blood Urine Nitrite Urine Bilirubin Urine Urobilinogen Ur Leukocyte Esterase Urine RBC Urine WBC Ur Squamous Epith Cells Amorphous Sediment Urine Bacteria Ur Microscopic Review Urine Culture Comments Fluid Source Fluid Color Fluid Clarity Fluid WBC Fluid RBC Fluid Neutrophils % Fluid Lymphocytes % Fluid Monocytes % Fluid Macrophages % Fld Mesothelial Cell % Nasal Adenovirus (PCR) NOT DETECTED Nasal B. parapertussis DNA (PCR) NOT DETECTED Nasal Coronavir 229E PCR NOT DETECTED Nasal Coronavir HKU1 PCR NOT DETECTED Nasal Coronavir NL63 PCR NOT DETECTED Nasal Coronavir OC43 PCR NOT DETECTED Nasal Enterovir/Rhinovir PCR NOT DETECTED Nasal Influenza B PCR NOT DETECTED Nasal Influenza A PCR NOT DETECTED Nasal Parainfluen 1 PCR NOT DETECTED Nasal Parainfluen 2 PCR NOT DETECTED Nasal Parainfluen 3 PCR NOT DETECTED Nasal Parainfluen 4 PCR NOT DETECTED Nasal RSV (PCR) NOT DETECTED Nasal B.pertussis DNA PCR NOT DETECTED Nasal C.pneumoniae (PCR) NOT DETECTED Dwain Human Metapneumo PCR NOT DETECTED Nasal M.pneumoniae (PCR) NOT DETECTED Nasal SARS-CoV-2 (PCR) NOT DETECTED Ethyl Alcohol < 5.0 03/19/20 03/19/20 03/19/20 10:56 10:56 11:16 WBC 8.3 RBC 2.98 L Hgb 8.9 L Hct 27.8 L MCV 93.3 MCH 29.9 MCHC 32.0 RDW 16.6 H Plt Count 148 MPV 11.3 Neut # (Auto) 6.6 Lymph # (Auto) 0.7 L [place] # (Auto) 0.9 Eos # (Auto) 0.1 Baso # (Auto) 0.0 Absolute Nucleated RBC 0.00 Nucleated RBC % 0.0 PT INR Sodium Potassium Chloride Carbon Dioxide Anion Gap BUN Creatinine Estimated GFR (MDRD) Glucose Lactic Acid 1.5 Calcium Total Bilirubin AST ALT Alkaline Phosphatase Ammonia 20.1 Total Protein Albumin Globulin Albumin/Globulin Ratio Lipase Urine Color Urine Clarity Urine pH Ur Specific [place] Urine Protein Urine Glucose (UA) Urine Ketones Urine Occult Blood Urine Nitrite Urine Bilirubin Urine Urobilinogen Ur Leukocyte Esterase Urine RBC Urine WBC Ur Squamous Epith Cells Amorphous Sediment Urine Bacteria Ur Microscopic Review Urine Culture Comments Fluid Source Fluid Color Fluid Clarity Fluid WBC Fluid RBC Fluid Neutrophils % Fluid Lymphocytes % Fluid Monocytes % Fluid Macrophages % Fld Mesothelial Cell % Nasal Adenovirus (PCR) Nasal B. parapertussis DNA (PCR) Nasal Coronavir 229E PCR Nasal Coronavir HKU1 PCR Nasal Coronavir NL63 PCR Nasal Coronavir OC43 PCR Nasal Enterovir/Rhinovir PCR Nasal Influenza B PCR Nasal Influenza A PCR Nasal Parainfluen 1 PCR Nasal Parainfluen 2 PCR Nasal Parainfluen 3 PCR Nasal Parainfluen 4 PCR Nasal RSV (PCR) Nasal B.pertussis DNA PCR Nasal C.pneumoniae (PCR) Dwain Human Metapneumo PCR Nasal M.pneumoniae (PCR) Nasal SARS-CoV-2 (PCR) Ethyl Alcohol 03/19/20 03/19/20 13:36 13:50 WBC RBC Hgb Hct MCV MCH MCHC RDW Plt Count MPV Neut # (Auto) Lymph # (Auto) [place] # (Auto) Eos # (Auto) Baso # (Auto) Absolute Nucleated RBC Nucleated RBC % PT INR Sodium Potassium Chloride Carbon Dioxide Anion Gap BUN Creatinine Estimated GFR (MDRD) Glucose Lactic Acid Calcium Total Bilirubin AST ALT Alkaline Phosphatase Ammonia Total Protein Albumin Globulin Albumin/Globulin Ratio Lipase Urine Color DARK YELLOW Urine Clarity HAZY Urine pH 6.0 Ur Specific [place] 1.020 Urine Protein NEGATIVE Urine Glucose (UA) NEGATIVE Urine Ketones TRACE Urine Occult Blood NEGATIVE Urine Nitrite NEGATIVE Urine Bilirubin MODERATE H Urine Urobilinogen 4 H Ur Leukocyte Esterase NEGATIVE Urine RBC None Seen Urine WBC 0-3 Ur Squamous Epith Cells NONE SEEN Amorphous Sediment Few Urine Bacteria None Seen Ur Microscopic Review INDICATED Urine Culture Comments NOT INDICATED Fluid Source PERITONEAL Fluid Color RED Fluid Clarity BLOODY Fluid WBC 177 Fluid RBC [id number] Fluid Neutrophils % 13 Fluid Lymphocytes % 44 Fluid Monocytes % 1 Fluid Macrophages % 5 Fld Mesothelial Cell % 37 Nasal Adenovirus (PCR) Nasal B. parapertussis DNA (PCR) Nasal Coronavir 229E PCR Nasal Coronavir HKU1 PCR Nasal Coronavir NL63 PCR Nasal Coronavir OC43 PCR Nasal Enterovir/Rhinovir PCR Nasal Influenza B PCR Nasal Influenza A PCR Nasal Parainfluen 1 PCR Nasal Parainfluen 2 PCR Nasal Parainfluen 3 PCR Nasal Parainfluen 4 PCR Nasal RSV (PCR) Nasal B.pertussis DNA PCR Nasal C.pneumoniae (PCR) [place] Human Metapneumo PCR Nasal M.pneumoniae (PCR) Nasal SARS-CoV-2 (PCR) Ethyl Alcohol - Rads (name of study) chest Radiology: Prelim report reviewed (Impression: No acute cardiopulmonary disease process.), EMP read indepedently, See rad report Procedures - Paracentesis Preparation: Consent obtained, Ultrasound guidance, Sterile prep and drape, Local anesthesia (1% lidocaine) Location: RLQ Technique: Catheter over needle Fluid: Bloody, Sent for cell count, Sent for gram stain, Sent for culture, Volume - enter cc (4500) Aftercare: No complications, Patient tolerated well, Dressing applied - Bedside sono Bedside sono by EMP: With use bedside ultrasound the abdomen is imaged I am not able to see the inferior vena cava secondary to bowel gas there is extensive ascites and the bladder is not distended but there is a mass in the bladder. PD MEDICAL DECISION MAKING - ED course Complexity details: reviewed old records, reviewed results, re-evaluated patient, considered differential, d/w patient ED course: 60-year-old male with untreated hepatitis C and alcoholic cirrhosis with ascites has developed hepatocellular carcinoma he has been admitted to the hospital ascites has been drained and has had rapid reaccumulation of his ascites. He has had recent banding of esophageal varices and he is not currently having bleeding. He is symptomatic from the ascites. Paracentesis is performed with 4/2 L of bloody peritoneal fluid is removed with marked improvement the patient's symptoms. Patient is very happy with being drained. He is administered 25 g of albumin and we will place him on sp ironolactone and Lasix. He will still need urgent follow-up with GI for staging and treatment. We [facility] and our social services technician was able to contact an insider who was able to help us with our bidding. Departure - Departure Disposition: 01 Home, Self Care Clinical Impression: Abdominal ascites Qualifiers: Ascites type: malignant Qualified Code(s): R18.0 - Malignant ascites Condition: Stable Instructions: Paracentesis Dc, ED Ascites Follow-Up: Bubba Brar MD [Provider Admit Priv/Credential] - Prescriptions: Spironolactone [Aldactone] 25 mg PO DAILY #20 tablet Furosemide [Lasix] 40 mg PO DAILY #20 tablet Comments: Today your ascites has re-accumulated rapidly and you will need to be on 2 diuretics. These will make you urinate more and it is possible to get "dehydrated" and you will need to stop the diuretic for several days. You will need to follow up with gastroenterology for further work up and treatment as soon as you can. Discharge Date/Time: 03/19/20 16:09
[2020-03-19 11:04] LABS: INR 1.6 (0.8-1.2); PT - PROTHROMBIN TIME 17.1 secs (9.9-12.6)
[2020-03-19 11:04] LABS: BASOPHILS % (AUTO) 0.2 %; EOSINOPHILS # (AUTO) 0.1 10^3/uL (0.0-0.7); HGB - HEMOGLOBIN 8.9 g/dL (14.0-18.0); LYMPHOCYTES # (AUTO) 0.7 10^3/uL (1.5-3.5); MEAN CORPUSCULAR HEMOGLOBIN 29.9 pg (27.0-31.0); MEAN CORPUSCULAR VOLUME 93.3 fL (80.0-94.0); MEAN PLATELET VOLUME 11.3 fL (7.4-11.4); MONOCYTES # (AUTO) 0.9 10^3/uL (0.0-1.0); NEUTROPHILS # (AUTO) 6.6 10^3/uL (1.5-6.6); NEUTROPHILS % (AUTO) 79.4 %; PLT - PLATELET COUNT 148 10^3/uL (130-450); RED BLOOD COUNT 2.98 10^6/uL (4.70-6.10); RED CELL DISTRIBUTION WIDTH 16.6 % (12.0-15.0); WHITE BLOOD COUNT 8.3 x10^3/uL (4.8-10.8)
[2020-03-19 11:10] LABS: ALBUMIN 2.6 g/dL (3.2-5.5); ALBUMIN/GLOBULIN RATIO 0.9 (1.0-2.2); ALKALINE PHOSPHATASE 72 IU/L (42-121); ALT ALANINE AMINOTRANSFERASE 126 IU/L (10-60); AST ASPARTATE AMINOTRANSFERASE 108 IU/L (10-42); BILIRUBIN,TOTAL 4.2 mg/dL (0.2-1.0); BUN - BLOOD UREA NITROGEN 21 mg/dL (6-20); CALCIUM 8.4 mg/dL (8.5-10.3); CARBON DIOXIDE - CO2 23 mmol/L (21-32); CHLORIDE 102 mmol/L (101-111); GLUCOSE 137 mg/dL (70-100); LIPASE 71 U/L (22-51); SODIUM 135 mmol/L (135-145); TOTAL PROTEIN 5.6 g/dL (6.7-8.2)
[2020-03-19 12:09] LABS: C. PNEUMONIAE- RESP PCR PANEL NOT DETECTED
[2020-03-19] MEDS ORDERED: ONDANSETRON 4 MG/2 ML VIAL IVP STA (12:09)
[2020-03-19] MEDS ORDERED: HYDROmorphone 1 MG/ML CARPUJECT IVP STA (12:09)
[2020-03-19 13:56] LABS: GLUCOSE, URINE (UA) NEGATIVE (NEGATIVE); KETONES,URINE (UA) TRACE mg/dL (NEGATIVE); LEUKOCYTE ESTERASE, URINE NEGATIVE (NEGATIVE); NITRITE,URINE NEGATIVE (NEGATIVE); OCCULT BLOOD,URINE NEGATIVE (NEGATIVE); PROTEIN,URINE NEGATIVE (NEGATIVE); UROBILINOGEN,URINE 4 E.U./dL (NORMAL)
[2020-03-19 14:03] LABS: BILIRUBIN,URINE MODERATE (NEGATIVE); CLARITY,URINE HAZY (CLEAR); ICTOTEST,URINE POSITIVE
[2020-03-19] MEDS ORDERED: ALBUMIN 25% 12.5 GM/50 ML VIAL IV STA ×2 (14:16→14:19)
[2020-03-19 14:25] LABS: AMORPHOUS SEDIMENT,UR Few /LPF; BACTERIA,URINE None Seen /HPF (None Seen); RBC,URINE None Seen /HPF (0-5); SQUAMOUS EPITHELIAL CELL,UR NONE SEEN (<= Few)
[2020-03-19 15:24] LABS: BF CLARITY BLOODY; BF COLOR RED; CC,BF RBC 380000 /mm^3
[2020-03-19 15:25] LABS: BF SOURCE PERITONEAL
[2020-03-19] MEDS ORDERED: CYANOCOBALAMIN 1,000 MCG/ML VIAL IM ONE (15:40)
[2020-03-19 15:47] VITALS: BP 128/58
[2020-03-19 16:46] LABS: LYMPHOCYTES %,BODY FLUID 44 %; MONOCYTES %,BODY FLUID 1 %
[2020-03-19 16:47] LABS: MACROPHAGES %,BODY FLUID 5 %; MESOTHELIAL %, BF 37 %
== END 2020-03-19 16:09 | disposition home or self-care (01) ==
LOC: EDUNIT# → ED 09:57
DX: C22.0 Liver cell carcinoma (principal); K70.31 Alcoholic cirrhosis of liver with ascites; B19.20 Unspecified viral hepatitis C without hepatic coma; E11.9 Type 2 diabetes mellitus without complications; Z11.52 Encounter for screening for COVID-19
CPT/HCPCS: 0202U; 36415; 49082; 71045; 80053; 80320; 81001; 82140; 83605; 83690; 85025; 85610; 87040; 87070; 87205; 89051; 96365; 96372; 96375; 99283; 99284; J1170; P9047; 81003; 87086

== ENCOUNTER 2020-03-20 17:11 | Emergency (ER) | payer OTHER ==
--- NOTE | 2020-03-20 19:06 | ED Physician Documentation ---
PD HPI ABD PAIN - Stated complaint Stated Complaint: ABD PX,CAN'T EAT - Chief complaint Chief Complaint: Abd Pain - History obtained from History obtained from: Patient - History of Present Illness Timing - onset: How many days ago (has had ongoing pain in abd diffusely, improved moderately yesterday with paracentesis, but states fullness and pain continue. Denies nausea, fevers.) Timing - duration: Weeks Timing - details: Gradual onset, Still present, Waxing and waning Quality: Cramping, Aching, Fullness/distended Location: All over / everywhere Radiation: Lower back Improved by: Position (lying to side to take weight off of his abd.). No: Eati ng Worsened by: Eating, Position (lying on back or with walking) Associated symptoms: Nausea, Constipation. No: Fever, Vomiting, Diarrhea, Hematochezia Similar symptoms before: Diagnosis (ascites due to liver failure and recent Dx of liver cancer.) Recently seen: Emergency Dept (yesterday with paracentesis. The fluid analysis does not show infection and prelim culture is negative. Previously had banding of varices at our facility. No further vomiting of blood nor melena.) Review of Systems Constitutional: denies: Fever, Chills Nose: denies: Rhinorrhea / runny nose, Congestion Throat: denies: Sore throat Cardiac: denies: Chest pain / pressure, Palpitations Respiratory: reports: Dyspnea (with activity). denies: Cough, Wheezing GI: reports: Abdominal Pain, Abdominal Swelling, Nausea, Constipation. denies: Vomiting, Diarrhea, Bloody / black stool : denies: Dysuria, Frequency Skin: denies: Rash, Lesions Musculoskeletal: reports: Back pain. denies: Neck pain Neurologic: reports: Generalized weakness. denies: Focal weakness, Numbness, Near syncope PD PAST MEDICAL HISTORY - Past Medical History Respiratory: COPD Neuro: Head injury Endocrine/Autoimmune: Type 2 diabetes GI: GI bleed, Hepatitis : Other HEENT: None Psych: None Musculoskeletal: Fatigue Derm: None - Past Surgical History Past Surgical History: Yes General: Colonoscopy - Present Medications Home Medications: Ambulatory Orders Medication Instructions Recorded Confirmed Pantoprazole [Protonix] 40 mg PO DAILY #30 tablet 03/17/20 03/19/20 Furosemide [Lasix] 40 mg PO DAILY #20 tablet 03/19/20 Spironolactone [Aldactone] 25 mg PO DAILY #20 tablet 03/19/20 Lactulose 10 gm PO DAILY #30 packet 03/20/20 Ondansetron Odt [Zofran] 4 mg TL Q6H PRN #20 tablet 03/20/20 oxyCODONE [Roxicodone] 5 mg PO Q4-6H PRN #20 tablet 03/20/20 - Allergies Allergies/Adverse Reactions: Allergies Allergy/AdvReac Type Severity Reaction Status Date / Time sulfamethoxazole Allergy Unknown Verified 03/20/20 17:28 [From ] trimethoprim [From ] Allergy Unknown Verified 03/20/20 17:28 - Social History Does the pt smoke?: No Smoking Status: Never smoker Does the pt drink ETOH?: Yes Does the pt have substance abuse?: No - Immunizations Immunizations are current?: Yes - POLST Patient has POLST: No POLST Status: Full Code PD ED PE NORMAL - Vitals Vital signs reviewed: Yes - General General: Alert and oriented X 3, Well developed/nourished - HEENT HEENT: Pharynx benign. No: Moist mucous membranes - Neck Neck: Supple, no meningeal sign, No adenopathy - Cardiac Cardiac: RRR, No murmur - Respiratory Respiratory: Clear bilaterally - Abdomen Abdomen: Soft, No organomegaly, Other. No: Normal bowel sounds (diminished but present. Dullness to percussion of abdomen c/w ascites. The abd is distended and tender but not tense. ) - Male Male : Deferred - Rectal Rectal: Deferred - Back Back: No CVA TTP - Derm Derm: Normal color, Warm and dry - Extremities Extremities: No tenderness to palpate, No edema, No calf tenderness / cord - Neuro Neuro: Alert and oriented X 3, No motor deficit, Normal speech Results - Vitals Vitals: Vital Signs - 24 hr 03/20/20 03/20/20 03/20/20 17:28 19:32 21:03 Temperature 37 C Heart Rate 100 98 89 Respiratory 22 24 20 Rate Blood Pressure 131/73 H 138/79 H 110/58 L O2 Saturation 99 94 95 03/20/20 21:38 Temperature Heart Rate 91 Respiratory 12 Rate Blood Pressure 140/82 H O2 Saturation 95 Oxygen O2 Source Room air - Labs Labs: Laboratory Tests 03/20/20 03/20/20 20:05 20:05 WBC 5.7 RBC 2.90 L Hgb 8.4 L Hct 26.9 L MCV 92.8 MCH 29.0 MCHC 31.2 L RDW 16.3 H Plt Count 128 L MPV 10.9 Neut # (Auto) 4.4 Lymph # (Auto) 0.6 L [place] # (Auto) 0.6 Eos # (Auto) 0.1 Baso # (Auto) 0.0 Absolute Nucleated RBC 0.00 Nucleated RBC % 0.0 Sodium 133 L Potassium 4.2 Chloride 102 Carbon Dioxide 24 Anion Gap 7.0 BUN 18 Creatinine 1.0 Estimated GFR (MDRD) 76 L Glucose 138 H Calcium 8.4 L Magnesium 2.0 Total Bilirubin 4.1 H AST 96 H ALT 105 H Alkaline Phosphatase 72 Total Protein 5.6 L Albumin 2.7 L Globulin 2.9 Albumin/Globulin Ratio 0.9 L Lipase 101 H Ethyl Alcohol < 5.0 PD MEDICAL DECISION MAKING - ED course Complexity details: reviewed old records, re-evaluated patient, considered differential (seems pain related to ascites and liver cancer. He is not significantly tight on abd so I do not want to tap him again next day. Fluid analysis from yesterday not showing any infection. Given pain meds and some fluids. ), d/w patient Departure - Departure Disposition: 01 Home, Self Care Clinical Impression: Generalized abdominal pain, Nausea Abdominal ascites Qualifiers: Ascites type: due to alcoholic cirrhosis Qualified Code(s): K70.31 - Alcoholic cirrhosis of liver with ascites Condition: Stable Record reviewed to determine appropriate education?: Yes Follow-Up: Garry Hansen ARNP [Primary Care Provider] - Prescriptions: Lactulose 10 gm PO DAILY #30 packet oxyCODONE [Roxicodone] 5 mg PO Q4-6H PRN #20 tablet PRN Reason: Pain Ondansetron Odt [Zofran] 4 mg TL Q6H PRN #20 tablet PRN Reason: Nausea / Vomiting Comments: Small frequent fluids. Calorie-containing supplements such as Ensure are good. Ondansetron if needed for nausea. Add lactulose daily to decrease and prevent constipation. Continue your current medications otherwise including your diuretics. I had oxycodone if needed for belly pain. Follow-up with your primary care over the next several days for further referral to oncology and GI. Discharge Date/Time: 03/20/20 21:53
[2020-03-20] MEDS ORDERED: ONDANSETRON 4 MG/2 ML VIAL IVP STA (19:19)
[2020-03-20] MEDS ORDERED: HYDROmorphone 1 MG/ML CARPUJECT IVP STA ×2 (19:19→20:52)
[2020-03-20] MEDS ORDERED: LACTULOSE 10 GM /15 ML UDC PO STA (19:20)
[2020-03-20] MEDS ORDERED: FUROSEMIDE 40 MG/4 ML VIAL IVP STA (19:20)
[2020-03-20 20:12] LABS: BASOPHILS % (AUTO) 0.5 %; EOSINOPHILS # (AUTO) 0.1 10^3/uL (0.0-0.7); EOSINOPHILS % (AUTO) 0.9 %; HGB - HEMOGLOBIN 8.4 g/dL (14.0-18.0); LYMPHOCYTES # (AUTO) 0.6 10^3/uL (1.5-3.5); MEAN CORPUSCULAR HGB CONC 31.2 g/dL (32.0-36.0); MEAN CORPUSCULAR VOLUME 92.8 fL (80.0-94.0); MEAN PLATELET VOLUME 10.9 fL (7.4-11.4); MONOCYTES # (AUTO) 0.6 10^3/uL (0.0-1.0); NEUTROPHILS # (AUTO) 4.4 10^3/uL (1.5-6.6); NEUTROPHILS % (AUTO) 78.2 %; PLT - PLATELET COUNT 128 10^3/uL (130-450); RED CELL DISTRIBUTION WIDTH 16.3 % (12.0-15.0); WHITE BLOOD COUNT 5.7 x10^3/uL (4.8-10.8)
[2020-03-20 20:30] LABS: ALBUMIN 2.7 g/dL (3.2-5.5); ALBUMIN/GLOBULIN RATIO 0.9 (1.0-2.2); ALKALINE PHOSPHATASE 72 IU/L (42-121); ALT ALANINE AMINOTRANSFERASE 105 IU/L (10-60); AST ASPARTATE AMINOTRANSFERASE 96 IU/L (10-42); BILIRUBIN,TOTAL 4.1 mg/dL (0.2-1.0); BUN - BLOOD UREA NITROGEN 18 mg/dL (6-20); CALCIUM 8.4 mg/dL (8.5-10.3); CARBON DIOXIDE - CO2 24 mmol/L (21-32); CHLORIDE 102 mmol/L (101-111); GLUCOSE 138 mg/dL (70-100); LIPASE 101 U/L (22-51); SODIUM 133 mmol/L (135-145); TOTAL PROTEIN 5.6 g/dL (6.7-8.2)
[2020-03-20] MEDS ORDERED: ONDANSETRON ODT 4 MG Prepack 2 TL PRN (20:52)
[2020-03-20] MEDS ORDERED: oxyCODONE/ACET 5/325 Prepack 4 PO STA (20:52)
[2020-03-20] MEDS ORDERED: SODIUM CHLORIDE 0.9% 1,000 ML IV STA (20:52)
[2020-03-20 21:39] VITALS: BP 140/82
--- OUTSIDE RECORDS SUMMARY | 2020-03-21 04:54 | EXTERNAL MEDICAL SUMMARY RPT | Continuity of Care Document ---
:1960 Demographics Phone Unavailable Preferred Language Greek Marital Status Unknown Tenriism Affiliation Unknown Race Unknown Ethnic Group Unknown Author Organization [place] Address [address] [phone] Phone Care Team Providers Name Role Phone MD Unavailable Unavailable Jackie Unavailable Unavailable Jade Unavailable Unavailable Gravatt Unavailable Unavailable Andrade Unavailable Unavailable Problems date description facility 2015-08-23 13:54 UNSPECIFIED VIRAL HEPATITIS C [facility] WITHOUT HEPATIC COMA 2015-08-23 13:54 TYPE 2 DIABETES MELLITUS WITHOUT [facility] COMPLICATIONS 2015-08-23 13:54 ALCOHOL DEPENDENCE, UNCOMPLICATED [facility] 2015-08-23 13:54 NICOTINE DEPENDENCE, UNSPECIFIED, [facility] UNCOMPLICATED 2015-08-23 13:54 CHRONIC OBSTRUCTIVE PULMONARY [facility] DISEASE, UNSPECIFIED 2015-08-23 13:54 NONINFECTIVE GASTROENTERITIS AND [facility] COLITIS, UNSPECIFIED 2015-08-23 13:54 DVRTCLOS OF INTEST, PART UNSP, W/O i [facility] PERF OR ABSCESS W/O BLEED 2015-08-23 13:54 ALCOHOLIC CIRRHOSIS OF LIVER [facility] WITHOUT ASCITES 2015-08-23 13:54 CALCULUS OF GALLBLADDER W/O [facility] CHOLECYSTITIS WITH OBSTRUCTION 2015-08-23 13:[address] [facility] 2015-08-23 13:54 UNSPECIFIED ABDOMINAL PAIN [facility] 2015-08-23 13:54 NAUSEA WITH VOMITING, UNSPECIFIED [facility] 2015-09-07 08:14 UNSPECIFIED VIRAL HEPATITIS C [facility] WITHOUT HEPATIC COMA 2015-09-07 08:14 ESSENTIAL (PRIMARY) HYPERTENSION [facility] 2015-09-07 08:14 ENLARGED PROSTATE WITH LOWER [facility] URINARY TRACT SYMPTOMS 2015-09-07 08:14 ENCOUNTER FOR SCREENING, [facility] UNSPECIFIED 2016-01-11 06:35 NUTRITIONAL ANEMIA, UNSPECIFIED [facility] 2016-11-28 06:42 DISORDER OF PENIS, UNSPECIFIED [facility] 2016-11-28 06:42 OTH PERSONAL RISK FACTORS, NOT [facility] ELSEWHERE CLASSIFIED 2016-12-04 08:00 DISORDER OF PENIS, UNSPECIFIED [facility] 2016-12-04 08:00 OTH PERSONAL RISK FACTORS, NOT [facility] ELSEWHERE CLASSIFIED 2016-12-04 15:08 UNSPECIFIED VIRAL HEPATITIS C [facility] WITHOUT HEPATIC COMA 2016-12-04 15:08 NUTRITIONAL ANEMIA, UNSPECIFIED [facility] 2016-12-04 15:08 THROMBOCYTOPENIA, UNSPECIFIED [facility] 2016-12-04 15:08 ABNORMAL LEVELS OF OTHER SERUM [facility] ENZYMES 2016-12-18 07:19 UNSPECIFIED VIRAL HEPATITIS C [facility] WITHOUT HEPATIC COMA 2016-12-18 07:19 UNSPECIFIED CIRRHOSIS OF LIVER [facility] 2016-12-18 07:[address] [facility] 2016-12-18 07:19 CALCULUS OF GALLBLADDER W/O [facility] CHOLECYSTITIS W/O OBSTRUCTION 2017-07-07 08:00 NUTRITIONAL ANEMIA, UNSPECIFIED [facility] 2017-07-07 08:00 [facility]ROMB[facility]OPENIA[facility] 2017-07-07 08:00 UNSPECIFIED CIRRHOSIS OF LIVER [facility] 2019-01-26 14:05 TYPE 2 DIABETES MELLITUS WITHOUT [facility] COMPLICATIONS 2019-01-26 14:05 NICOTINE DEPENDENCE, UNSPECIFIED, [facility] UNCOMPLICATED 2019-01-26 14:05 PAIN IN LEFT ANKLE AND JOINTS OF [facility] LEFT FOOT 2019-01-26 14:05 UNSPECIFIED INJURY OF LEFT ANKLE, [facility] INITIAL ENCOUNTER 2019-01-26 14:05 OVEREXERTION FROM PROLONGED STATIC [facility] OR AWKWARD POSTURES, INIT 2019-02-05 09:14 TYPE 2 DIABETES MELLITUS WITHOUT [facility] COMPLICATIONS 2019-02-05 09:14 NICOTINE DEPENDENCE, UNSPECIFIED, [facility] UNCOMPLICATED 2019-02-05 09:14 CALCULUS OF GALLBLADDER W/O [facility] CHOLECYSTITIS W/O OBSTRUCTION 2019-02-05 09:14 UPPER ABDOMINAL PAIN, UNSPECIFIED [facility] 2019-02-05 09:14 BILIOUS VOMITING [facility] [place] 2020-03-11 17:12 UNSPECIFIED VIRAL HEPATITIS B [facility] WITHOUT HEPATIC COMA 2020-03-11 17:12 UNSPECIFIED VIRAL HEPATITIS C [facility] WITHOUT HEPATIC COMA 2020-03-11 17:12 ACUTE POSTHEMORRHAGIC ANEMIA [facility] 2020-03-11 17:12 TYPE 2 DIABETES MELLITUS WITHOUT [facility] COMPLICATIONS 2020-03-11 17:12 ALCOHOL ABUSE, UNCOMPLICATED [facility] 2020-03-11 17:12 NICOTINE DEPENDENCE, UNSPECIFIED, [facility] UNCOMPLICATED 2020-03-11 17:12 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 2020-03-11 17:12 CHRONIC OBSTRUCTIVE PULMONARY [facility] DISEASE, UNSPECIFIED 2020-03-11 17:12 UNSPECIFIED CIRRHOSIS OF LIVER [facility] 2020-03-11 17:12 HEMATEMESIS [facility] [place] 2020-03-11 17:12 TACHYCARDIA, UNSPECIFIED [facility] 2020-03-11 17:12 OTHER ASCITES [facility] [place] 2020-03-11 17:12 CONTACT W AND EXPOSURE TO OTH [facility] VIRAL COMMUNICABLE D 2020-03-11 17:12 PROC/TRTMT NOT CRD OUT BEC PT [facility] DECISION FOR OTH [facility] Allergies date description facility ADHESIVE \T\ TAPE [facility] [place] CLARITHROMYCIN [facility] DOXYCYCL[facility] LISINOPRIL [facility] METRONIDAZOLE [facility] MORPHINE [facility] [place] STREPTOMYCIN BASE [facility] [place] SULFAMETHOXAZOLE-TRIMETHOPRIM [facility] NO KNOWN ENVIRONMENTAL ALLERGIES [facility] ASPIRIN [facility] AZITHROMYCIN [facility] GRASS POLLEN [facility] LANSOPRAZOLE [facility] OPIOIDS - MORPHINE ANALOGUES [facility] PENICILLINS [facility] TUBERCULIN PPD [facility] NO ALLERGY INFORMATION AVAILABLE [facility] NSAIDS (NON-STEROIDAL ANTI-INFLAMMATORY DRUG) [facility] PENICILLINS [facility] SULFA (SULFONAMIDE ANTIBIOTICS) [facility] NO KNOWN ALLERGIES [facility] LATEX [facility] PRO[facility]LORPERAZINE [facility] MORPHINE [facility] CODEINE [facility] LOVASTATIN [facility] LACTOSE [facility] GARLIC [facility] SULFAMETHOXAZOLE [facility] FENTANYL [facility] SIMVASTATIN [facility] AZITHROMYC[facility] TRAMADOL [facility] ENOXAPARIN [facility] RANITIDINE [facility] ATORVASTATIN [facility] DULOXETINE [facility] ROSUVASTATIN [facility] OXYCODONE-ACETAMINOPHEN [facility] COENZYME Q10 [facility] Penicillins [facility] sulfamethoxazole [facility] trimethoprim [facility] NO KNOWN ALLERGIES [facility] CAT DANDER [facility] sulfamethoxazole [facility] trimethoprim [facility] BEE VENOM PROTEIN (HONEY BEE) [facility] MORPHINE [facility] ZOLPIDEM [facility] Results Social History date description facility [id number]
== END 2020-03-20 21:53 | disposition home or self-care (01) ==
LOC: ED 17:11
DX: K70.31 Alcoholic cirrhosis of liver with ascites (principal); C22.9 Malignant neoplasm of liver, not specified as primary or secondary; K75.9 Inflammatory liver disease, unspecified; R11.0 Nausea; E11.9 Type 2 diabetes mellitus without complications
CPT/HCPCS: 36415; 80053; 80320; 83690; 83735; 85025; 96374; 96375; 96376; 99283; 99284; A9270; J1170

== ENCOUNTER 2020-03-23 17:44 | Outpatient (CLI) | payer OTHER | END 2020-03-23 17:45 | disposition EMS.NT | LOC: EMS 17:44 | PROVIDERS: ATTEND Surgery | DX: R14.0 Abdominal distension (gaseous) (principal) ==

== ENCOUNTER 2020-03-23 18:19 | Emergency (ER) | payer OTHER ==
[2020-03-23 19:32] LABS: GLUCOSE, URINE (UA) NEGATIVE (NEGATIVE); KETONES,URINE (UA) TRACE mg/dL (NEGATIVE); LEUKOCYTE ESTERASE, URINE NEGATIVE (NEGATIVE); NITRITE,URINE NEGATIVE (NEGATIVE); OCCULT BLOOD,URINE NEGATIVE (NEGATIVE); PH,URINE 5.5 PH (5.0-7.5); PROTEIN,URINE NEGATIVE (NEGATIVE); UROBILINOGEN,URINE 4 E.U./dL (NORMAL)
[2020-03-23 19:38] LABS: BILIRUBIN,URINE MODERATE (NEGATIVE); CLARITY,URINE CLEAR (CLEAR); ICTOTEST,URINE POSITIVE
--- NOTE | 2020-03-23 19:45 | ED Physician Documentation ---
History of Present Illness - Stated complaint Stated Complaint: ABD PX - Chief complaint Chief Complaint: Abd Pain - History obtained from History obtained from: Patient - History of Present Illness Timing: Chronic Pain level max: 3 Pain level now: 2 - Additonal information Additional information: 60 year old male with liver mass, likely hepatocellular carcinoma, and ascites from cirrhosis. It is unclear if the patient has been taking his medications as prescribed. He states he often takes them when he feels like it. He states increased swelling to the legs and stomach recently. Last paracentesis was 3 days ago. He states he feels mildly short of breath when he walks. No fevers. No chills. No change in his abdominal pain. Review of Systems Ten Systems: 10 systems reviewed and negative Constitutional: denies: Fever, Chills Nose: denies: Rhinorrhea / runny nose, Congestion Throat: denies: Sore throat Cardiac: denies: Chest pain / pressure, Palpitations Respiratory: denies: Cough, Wheezing GI: denies: Vomiting, Diarrhea Skin: denies: Rash Musculoskeletal: denies: Neck pain, Back pain PD PAST MEDICAL HISTORY - Past Medical History Past Medical History: Yes Respiratory: COPD Neuro: Head injury Endocrine/Autoimmune: Type 2 diabetes GI: GI bleed, Hepatitis : Other HEENT: None Psych: None Musculoskeletal: Fatigue Derm: None - Past Surgical History Past Surgical History: Yes General: Colonoscopy - Present Medications Home Medications: Ambulatory Orders Medication Instructions Recorded Confirmed Pantoprazole [Protonix] 40 mg PO DAILY #30 tablet 03/17/20 03/23/20 Furosemide [Lasix] 40 mg PO DAILY #20 tablet 03/19/20 03/23/20 Spironolactone [Aldactone] 25 mg PO DAILY #20 tablet 03/19/20 03/23/20 Lactulose 10 gm PO DAILY #30 packet 03/20/20 03/23/20 Ondansetron Odt [Zofran] 4 mg TL Q6H PRN #20 tablet 03/20/20 03/23/20 oxyCODONE [Roxicodone] 5 mg PO Q4-6H PRN #20 tablet 03/20/20 03/23/20 Metoprolol Tartrate [Lopressor] 25 mg PO BID 03/23/20 03/23/20 Spironolactone [Aldactone] 50 mg PO DAILY #20 tablet 03/23/20 - Allergies Allergies/Adverse Reactions: Allergies Allergy/AdvReac Type Severity Reaction Status Date / Time sulfamethoxazole Allergy Unknown Verified 03/23/20 18:32 [From ] trimethoprim [From ] Allergy Unknown Verified 03/23/20 18:32 - Social History Does the pt smoke?: No Smoking Status: Never smoker Does the pt drink ETOH?: No Does the pt have substance abuse?: No Substance Use and Type: Marijuana - Immunizations Immunizations are current?: Yes - POLST Patient has POLST: No POLST Status: Full Code PD ED PE NORMAL - Vitals Vital signs reviewed: Yes - General General: Alert and oriented X 3, No acute distress, Well developed/nourished - HEENT HEENT: PERRL, Moist mucous membranes - Neck Neck: Supple, no meningeal sign - Cardiac Cardiac: RRR, Strong equal pulses - Respiratory Respiratory: No respiratory distress, Clear bilaterally - Abdomen Abdomen: Normal bowel sounds, Soft, Non tender, Other (Minimal distention, soft.) - Derm Derm: Warm and dry - Extremities Extremities: Other (1+ bilateral lower extremity edema) - Neuro Neuro: Alert and oriented X 3 - Psych Psych: Normal mood, Normal affect Results - Vitals Vitals: Vital Signs - 24 hr 03/23/20 03/23/20 18:25 19:46 Temperature 36.7 C Heart Rate 82 68 Respiratory 17 16 Rate Blood Pressure 132/60 H 122/67 O2 Saturation 100 100 Oxygen O2 Source Room air - Labs Labs: Laboratory Tests 03/23/20 19:24 Urine Color DARK YELLOW Urine Clarity CLEAR Urine pH 5.5 Ur Specific [place] 1.025 Urine Protein NEGATIVE Urine Glucose (UA) NEGATIVE Urine Ketones TRACE Urine Occult Blood NEGATIVE Urine Nitrite NEGATIVE Urine Bilirubin MODERATE H Urine Urobilinogen 4 H Ur Leukocyte Esterase NEGATIVE Ur Microscopic Review NOT INDICATED Urine Culture Comments NOT INDICATED PD MEDICAL DECISION MAKING - ED course Complexity details: reviewed old records, considered differential, d/w patient ED course: 60-year-old male presents to the emergency department requesting paracentesis. Patient does not meet criteria for emergent Paracentesis at this time. I reviewed with the patient the risks and benefits of paracentesis. At this time he has very minimal ascites and I feel that the risk of the procedure including SBP, perforation of the abdominal organs is much higher than adjusting his diuretics. He is in no respiratory distress. Not tachypneic. Not hypoxic. No evidence of effusions. Patient is very well-appearing, nontoxic. Afebrile. Recommend that he be more compliant with his medications. Will increase his spironolactone. We will have him follow-up with his doctor for further care. Patient counseled regarding signs and symptoms for which I believe and urgent re-evaluation would be necessary. This document was made in part using voice recognition software. While efforts are made to proofread this document, sound alike and grammatical errors may occur. Departure - Departure Disposition: 01 Home, Self Care Clinical Impression: Neoplasm of uncertain behavior of liver Ascites Qualifiers: Ascites type: due to alcoholic cirrhosis Qualified Code(s): K70.31 - Alcoholic cirrhosis of liver with ascites Cirrhosis Qualifiers: Hepatic cirrhosis type: alcoholic cirrhosis Ascites presence: with ascites Qualified Code(s): K70.31 - Alcoholic cirrhosis of liver with ascites Condition: Good Instructions: ED Cirrhosis Liver Follow-Up: Garry Hansen ARNP [Primary Care Provider] - Within 3 Days Prescriptions: Spironolactone [Aldactone] 50 mg PO DAILY #20 tablet Comments: We will increase your spironolactone to 50 mg daily. You should continue the Lasix at 40 mg daily. Both of these may need to be increased later by your doctor. You do have a mass in your liver that needs further care with your doctor as well. If you need repeated paracentesis, this needs to be arranged with your doctor through an appointment with radiology. You do not need an emergent paracentesis today. Discharge Date/Time: 03/23/20 20:08
[2020-03-23 19:48] VITALS: BP 122/67
== END 2020-03-23 20:08 | disposition home or self-care (01) ==
LOC: ED 18:19
DX: K70.31 Alcoholic cirrhosis of liver with ascites (principal); C22.9 Malignant neoplasm of liver, not specified as primary or secondary; E11.9 Type 2 diabetes mellitus without complications
CPT/HCPCS: 80053; 81001; 81003; 83690; 85025; 87086; 99283; 99284

== ENCOUNTER 2020-03-26 01:45 | Outpatient (CLI) | payer OTHER | END 2020-03-26 01:46 | disposition critical access hospital (66) | LOC: EMS 01:45 | PROVIDERS: ATTEND Surgery | DX: R10.9 Unspecified abdominal pain (principal); R11.2 Nausea with vomiting, unspecified | CPT/HCPCS: A0425; A0427 ==

== ENCOUNTER 2020-03-26 02:01 | Emergency (ER) | payer OTHER ==
--- NOTE | 2020-03-26 02:10 | ED Physician Documentation ---
PD HPI ABD PAIN - Stated complaint Stated Complaint: ABD PX/ - History obtained from History obtained from: Patient, EMS - History of Present Illness Timing - onset: How many weeks ago (2-3 weeks, significantly worse since earlier today) Pain level now: 2 Quality: Pain Location: All over / everywhere Improved by: Other (nothing) Worsened by: Other (no exacerbating factors) Associated symptoms: Nausea, Vomiting. No: Fever, Diarrhea, Constipation, Melena, Hematochezia Recently seen: Emergency Dept, Admitted - Additional information Additional information: BIBA. Patient c/o generalized abdominal pain and swelling with nausea and vomiting. His symptoms began gradually 1 month ago and he was evaluated in this ED 03/11. At that time, he was found to be anemic with abnormal LFTs and US showing ascites. He was transfused PRBC in ED and eventually left AMA after a prolonged attempt to transfer him to another facility (multiple hospitals were contacted and they were full). He returned 03/15 and was admitted; during this hospital stay he had EGD with banding of esophageal varices as well as paracentesis. A CT performed at that time demonstrated a large (11cm) heterogeneous liver mass that was highly suspicious for HCC. He returned 03/19 and was T+R from ED after paracentesis. Returned 03/20 and 03/23. Patient says [facility] but has been unsuccessful in arranging follow up; his description does not make it clear to me why this has been unsuccessful. Review of Systems Constitutional: denies: Fever, Chills, Sweats Cardiac: reports: Reviewed and negative Respiratory: reports: Reviewed and negative GI: reports: Abdominal Pain, Abdominal Swelling, Nausea, Vomiting. denies: Constipation, Diarrhea : denies: Dysuria, Frequency PD PAST MEDICAL HISTORY - Past Medical History Respiratory: COPD Neuro: Head injury Endocrine/Autoimmune: Type 2 diabetes GI: GI bleed, Hepatitis : Other HEENT: None Psych: None Musculoskeletal: Fatigue Derm: None - Past Surgical History Past Surgical History: Yes General: Colonoscopy - Present Medications Home Medications: Ambulatory Orders Medication Instructions Recorded Confirmed Pantoprazole [Protonix] 40 mg PO DAILY #30 tablet 03/17/20 03/23/20 Furosemide [Lasix] 40 mg PO DAILY #20 tablet 03/19/20 03/23/20 Lactulose 10 gm PO DAILY #30 packet 03/20/20 03/23/20 Ondansetron Odt [Zofran] 4 mg TL Q6H PRN #20 tablet 03/20/20 03/23/20 oxyCODONE [Roxicodone] 5 mg PO Q4-6H PRN #20 tablet 03/20/20 03/23/20 Metoprolol Tartrate [Lopressor] 25 mg PO BID 03/23/20 03/23/20 Spironolactone [Aldactone] 50 mg PO DAILY #20 tablet 03/23/20 - Allergies Allergies/Adverse Reactions: Allergies Allergy/AdvReac Type Severity Reaction Status Date / Time sulfamethoxazole Allergy Unknown Verified 03/23/20 18:32 [From ] trimethoprim [From ] Allergy Unknown Verified 03/23/20 18:32 - Social History Does the pt smoke?: No Smoking Status: Never smoker Does the pt drink ETOH?: No Does the pt have substance abuse?: No - Immunizations Immunizations are current?: Yes - POLST Patient has POLST: No POLST Status: Full Code PD ED PE NORMAL - Vitals Vital signs reviewed: Yes - General General: Alert and oriented X 3, Well developed/nourished, Other (intermittently moans due to abdominal pain and has brief periods of rapid breathing which res olves when he is distracted with conversation ) - HEENT HEENT: Moist mucous membranes - Neck Neck: Supple, no meningeal sign - Cardiac Cardiac: RRR, No murmur - Respiratory Respiratory: No respiratory distress, Clear bilaterally - Abdomen Abdomen: Normal bowel sounds, Soft PD ED PE EXPANDED - Abdomen Abdomen: Distended, Tender to palpation, Other (RLQ/flank: previous paracentesis site has single suture in place, no erythema, bruising, or focal tenderness). No: Rebound, Guarding Results - Vitals Vitals: Vital Signs - 24 hr 03/26/20 03/26/20 03/26/20 02:02 03:25 05:00 Temperature 36 C L 36.2 C L Heart Rate 88 89 89 Respiratory 22 19 16 Rate Blood Pressure 118/70 121/66 108/66 O2 Saturation 100 97 98 03/26/20 03/26/20 07:48 08:49 Temperature Heart Rate 86 71 Respiratory 11 L 16 Rate Blood Pressure 132/68 H 133/70 H O2 Saturation 97 98 Oxygen O2 Source Room air - Labs Labs: Laboratory Tests 03/26/20 03/26/20 03/26/20 02:20 02:20 02:20 WBC 6.9 RBC 2.66 L Hgb 7.7 L Hct 24.3 L MCV 91.4 MCH 28.9 MCHC 31.7 L RDW 16.4 H Plt Count 134 MPV 11.3 Neut # (Auto) 5.6 Lymph # (Auto) 0.5 L [place] # (Auto) 0.7 Eos # (Auto) 0.0 Baso # (Auto) 0.0 Absolute Nucleated RBC 0.00 Nucleated RBC % 0.0 PT INR APTT Sodium 138 Potassium 4.3 Chloride 101 Carbon Dioxide 25 Anion Gap 12.0 BUN 27 H Creatinine 1.1 Estimated GFR (MDRD) 68 L Glucose 160 H Calcium 8.9 Total Bilirubin 2.2 H AST 104 H ALT 99 H Alkaline Phosphatase 84 Ammonia 25.9 Total Protein 5.3 L Albumin 2.4 L Globulin 2.9 Albumin/Globulin Ratio 0.8 L Lipase 137 H Nasal Adenovirus (PCR) Nasal B. parapertussis DNA (PCR) Nasal Coronavir 229E PCR Nasal Coronavir HKU1 PCR Nasal Coronavir NL63 PCR Nasal Coronavir OC43 PCR Nasal Enterovir/Rhinovir PCR Nasal Influenza B PCR Nasal Influenza A PCR Nasal Parainfluen 1 PCR Nasal Parainfluen 2 PCR Nasal Parainfluen 3 PCR Nasal Parainfluen 4 PCR Nasal RSV (PCR) Nasal B.pertussis DNA PCR Nasal C.pneumoniae (PCR) Dwain Human Metapneumo PCR Nasal M.pneumoniae (PCR) Nasal SARS-CoV-2 (PCR) Gastric Fluid pH Gastric Occult Blood 03/26/20 03/26/20 03/26/20 02:20 03:15 03:17 WBC RBC Hgb Hct MCV MCH MCHC RDW Plt Count MPV Neut # (Auto) Lymph # (Auto) [place] # (Auto) Eos # (Auto) Baso # (Auto) Absolute Nucleated RBC Nucleated RBC % PT 15.1 H INR 1.4 H APTT 24.5 L Sodium Potassium Chloride Carbon Dioxide Anion Gap BUN Creatinine Estimated GFR (MDRD) Glucose Calcium Total Bilirubin AST ALT Alkaline Phosphatase Ammonia Total Protein Albumin Globulin Albumin/Globulin Ratio Lipase Nasal Adenovirus (PCR) NOT DETECTED Nasal B. parapertussis DNA (PCR) NOT DETECTED Nasal Coronavir 229E PCR NOT DETECTED Nasal Coronavir HKU1 PCR NOT DETECTED Nasal Coronavir NL63 PCR NOT DETECTED Nasal Coronavir OC43 PCR NOT DETECTED Nasal Enterovir/Rhinovir PCR NOT DETECTED Nasal Influenza B PCR NOT DETECTED Nasal Influenza A PCR NOT DETECTED Nasal Parainfluen 1 PCR NOT DETECTED Nasal Parainfluen 2 PCR NOT DETECTED Nasal Parainfluen 3 PCR NOT DETECTED Nasal Parainfluen 4 PCR NOT DETECTED Nasal RSV (PCR) NOT DETECTED Nasal B.pertussis DNA PCR NOT DETECTED Nasal C.pneumoniae (PCR) NOT DETECTED Dwain Human Metapneumo PCR NOT DETECTED Nasal M.pneumoniae (PCR) NOT DETECTED Nasal SARS-CoV-2 (PCR) NOT DETECTED Gastric Fluid pH 4.0 Gastric Occult Blood Negative Procedures - Paracentesis Preparation: Consent obtained, Ultrasound guidance, Sterile prep and drape, Local anesthesia Location: LLQ Technique: Z-tract Fluid: Bloody, Volume - enter cc (3050) Aftercare: Patient tolerated well, Dressing applied, Fluid leak - comment (sutures placed with no further fluid leakage) PD MEDICAL DECISION MAKING - ED course Complexity details: reviewed old records, reviewed results, re-evaluated patient, considered differential, d/w patient ED course: vomiting resolved after IV zofran. he is gastroccult negative. he has significa nt abdominal distention and large amount of ascites on bedside US. anemia is comparable to recent visits when he was able to be discharged. I contacted [facility]; they advise against transfer to their facility due to lack of oncology services. I then contacted [facility] and d/w Dr. Little (payroll officer). After discussing the patient's H+P and recent CT results, Dr. Little recommends paracentesis in ED and then discharge home. He advises against PRBC transfusion at this time. Dr. Little recommends patient continue to pursue outpatient f/u with PMD and possible oncology and GI consults, possibly arranging for regularly scheduled outpatient visits so that future paracenteses can be performed in outpatient setting if needed. I performed paracentesis in ED and 3050 cc was removed without complication. Due to ongoing leaking from the paracentesis site, I placed 3 sutures which stopped the ongoing leakage. I then removed the suture from previous paracentesis site. I emphasized to patient the importance of continuing to pursue outpatient f/u and he is comfortable with d/c home and he will resume attempts to arrange f/u with PMD this morning. Departure - Departure Disposition: 01 Home, Self Care Clinical Impression: Ascites Qualifiers: Ascites type: other type Qualified Code(s): R18.8 - Other ascites Condition: Stable Instructions: ED Ascites Follow-Up: Garry Hansen ARNP [Primary Care Provider] - Within 1 week Discharge Date/Time: 03/26/20 08:49
[2020-03-26 02:33] LABS: BASOPHILS % (AUTO) 0.4 %; EOSINOPHILS % (AUTO) 0.3 %; HGB - HEMOGLOBIN 7.7 g/dL (14.0-18.0); LYMPHOCYTES # (AUTO) 0.5 10^3/uL (1.5-3.5); LYMPHOCYTES % (AUTO) 7.6 %; MEAN CORPUSCULAR HEMOGLOBIN 28.9 pg (27.0-31.0); MEAN CORPUSCULAR HGB CONC 31.7 g/dL (32.0-36.0); MEAN CORPUSCULAR VOLUME 91.4 fL (80.0-94.0); MEAN PLATELET VOLUME 11.3 fL (7.4-11.4); MONOCYTES # (AUTO) 0.7 10^3/uL (0.0-1.0); MONOCYTES % (AUTO) 9.6 %; NEUTROPHILS # (AUTO) 5.6 10^3/uL (1.5-6.6); NEUTROPHILS % (AUTO) 81.5 %; PLT - PLATELET COUNT 134 10^3/uL (130-450); RED BLOOD COUNT 2.66 10^6/uL (4.70-6.10); RED CELL DISTRIBUTION WIDTH 16.4 % (12.0-15.0); WHITE BLOOD COUNT 6.9 x10^3/uL (4.8-10.8)
[2020-03-26 02:36] LABS: INR 1.4 (0.8-1.2); PT - PROTHROMBIN TIME 15.1 secs (9.9-12.6)
[2020-03-26 02:43] LABS: PARTIAL THROMBOPLASTIN TIME 24.5 secs (24.9-33.3)
[2020-03-26 02:45] LABS: ALBUMIN 2.4 g/dL (3.2-5.5); ALBUMIN/GLOBULIN RATIO 0.8 (1.0-2.2); BILIRUBIN,TOTAL 2.2 mg/dL (0.2-1.0); CALCIUM 8.9 mg/dL (8.5-10.3); CREATININE 1.1 mg/dL (0.6-1.2); TOTAL PROTEIN 5.3 g/dL (6.7-8.2)
[2020-03-26 03:21] LABS: GASTROCCULT Negative (Negative)
[2020-03-26 04:10] LABS: C. PNEUMONIAE- RESP PCR PANEL NOT DETECTED
[2020-03-26] MEDS ORDERED: MORPHINE 2 MG/ML CARPUJECT IVP STA ×2 (04:12→07:19)
[2020-03-26] MEDS ORDERED: SODIUM CHLORIDE 0.9% 1,000 ML IV STA (04:12)
[2020-03-26] MEDS ORDERED: ONDANSETRON 4 MG/2 ML VIAL IVP STA (04:12)
[2020-03-26] MEDS ORDERED: LIDOCAINE 1% 2 ML VIAL SUBQ STA (07:23)
[2020-03-26] MEDS ORDERED: BACITRACIN ZINC OINT 1 PACKET TOP STA (08:25)
[2020-03-26 08:50] VITALS: BP 133/70
== END 2020-03-26 08:49 | disposition home or self-care (01) ==
LOC: EDUNIT# → SUPCPDRO 02:01 → ED 02:01
DX: R18.8 Other ascites (principal); K76.9 Liver disease, unspecified; E11.9 Type 2 diabetes mellitus without complications; Z20.822 Contact with and (suspected) exposure to COVID-19
CPT/HCPCS: 0202U; 36415; 49082; 80053; 82140; 83690; 85025; 85610; 85730; 96374; 96375; 96376; 99283; 99284; A9270

== ENCOUNTER 2020-03-29 17:45 | Outpatient (CLI) | payer OTHER | END 2020-03-29 17:46 | disposition critical access hospital (66) | LOC: EMS 17:45 | PROVIDERS: ATTEND Surgery | DX: R10.9 Unspecified abdominal pain (principal); R19.09 Other intra-abdominal and pelvic swelling, mass and lump | CPT/HCPCS: A0425; A0429 ==

== ENCOUNTER 2020-03-29 18:06 | Emergency (ER) | payer OTHER ==
--- NOTE | 2020-03-29 19:27 | ED Physician Documentation ---
PD HPI ABD PAIN - Stated complaint Stated Complaint: ABD PX - Chief complaint Chief Complaint: Abd Pain - History obtained from History obtained from: Patient, EMS - History of Present Illness Timing - onset: Other (recurrent symptoms x several weeks) Timing - details: Waxing and waning Quality: Fullness/distended Location: All over / everywhere Improved by: Other (nothing) Associated symptoms: No: Fever, Vomiting, Diarrhea, Constipation Similar symptoms before: Diagnosis (ascites, cirrhosis, large liver mass) Recently seen: Emergency Dept - Additional information Additional information: 7th [facility] ED visit in 19 days, including inpatient stay. these visits have revealed diagnoses of cirrhosis, ascites (has had multiple paracenteses including 3 days ago), and large liver mass that is highoy suspicious for HCC per radiologists interpretation of recent CT but he has yet to receive specific diagnosis. BIBA. Patient c/o abdominal distention causing generalized discomfort similar to previous visit presentations and he requests paracentesis. PD PAST MEDICAL HISTORY - Past Medical History Past Medical History: Yes Cardiovascular: None Respiratory: COPD Neuro: Head injury Endocrine/Autoimmune: Type 2 diabetes GI: GI bleed, Hepatitis : Other HEENT: None Psych: None Musculoskeletal: Fatigue Derm: None - Past Surgical History Past Surgical History: Yes General: Colonoscopy - Present Medications Home Medications: Ambulatory Orders Medication Instructions Recorded Confirmed Pantoprazole [Protonix] 40 mg PO DAILY #30 tablet 03/17/20 03/29/20 Furosemide [Lasix] 40 mg PO DAILY #20 tablet 03/19/20 03/29/20 Lactulose 10 gm PO DAILY #30 packet 03/20/20 03/29/20 Ondansetron Odt [Zofran] 4 mg TL Q6H PRN #20 tablet 03/20/20 03/29/20 oxyCODONE [Roxicodone] 5 mg PO Q4-6H PRN #20 tablet 03/20/20 03/29/20 Metoprolol Tartrate [Lopressor] 25 mg PO BID 03/23/20 03/29/20 Spironolactone [Aldactone] 50 mg PO DAILY #20 tablet 03/23/20 03/29/20 - Allergies Allergies/Adverse Reactions: Allergies Allergy/AdvReac Type Severity Reaction Status Date / Time sulfamethoxazole Allergy Unknown Verified 03/29/20 18:10 [From ] trimethoprim [From Septra] Allergy Unknown Verified 03/29/20 18:10 - Social History Does the pt smoke?: No Smoking Status: Never smoker Does the pt drink ETOH?: No Does the pt have substance abuse?: No - Immunizations Immunizations are current?: Yes - POLST Patient has POLST: No POLST Status: Full Code PD ED PE NORMAL - Vitals Vital signs reviewed: Yes - General General: No acute distress, Well developed/nourished, Other (Appears to be asleep with eyes closed, but then provides brief answers to questions and contributes to HPI but mostly continues to keep eyes closed during H+P. He is OX3) - HEENT HEENT: Atraumatic, PERRL, EOMI, Moist mucous membranes - Neck Neck: Supple, no meningeal sign - Cardiac Cardiac: RRR, No murmur - Respiratory Respiratory: No respiratory distress, Clear bilaterally - Abdomen Abdomen: Soft, Non tender PD ED PE EXPANDED - Abdomen Abdomen: Distended, Other (left abdominal paracentesis site is C/D/I with three sutres in place) Abdomen Visual: 1 - bruising (confluent, flat echymosis) Results - Vitals Vitals: Oxygen O2 Source Room air PD MEDICAL DECISION MAKING - ED course Complexity details: reviewed old records, considered differential, d/w patient ED course: I performed paracentesis on this patient 3 days ago at which time he told me he has no f/u arranged despite multiple ED visits and inpatient stay ([facility]). patient continues to insist he leaves messages with his PMDs office but never receives any calls back. On previous visit, he indicated to me that he sometimes gets frustrated with trying to navigate the phone menus involved. However, tonight he was able to get in touch with a nurse at [facility] and, per patient, they told me to come here to get another tap. having just performed his paracentesis 3 days ago, I note that his abdomen does not appear nearly as distended on previous presentation. there is no leakage from the procedure site (three sutures remain intact). there is a large but flat hematoma surrounding the site that extends to left groin and left flank; this has appropriate discoloration s/o flat subcutaneous bleeding few days old (dark blue/purple hue). I reviewed with him the risks of paracentesis which includes bleeding and infection. I explained that his abdomen is distended but not tense and that he does not need therapeutic nor diagnostic paracentesis at this time; I pointed out that the extensive bruising illustrates the fact that such a pro cedure has risks and, at this time, the risks of paracentesis outweigh potential benefit(s). patient had somewhat odd behavior during this encounter, with virtually no eye contact, mostly kept eyes closed. As with previous visits, I emphasized the critical importance of pursuing f/u with PMD for appropriate consults and regularly scheduled appointments so that future paracentesis can be performed outpatient. I left a message regarding patients case on VM of Franchesca Lewis RN USP as per the recommended course of action on patients SAMUEL care coordination. initial low SBP suspected to be inaccurate given normal DBP; with simple repositioning of patient subsequent BP readings are normotensive (SBP and DBP) Departure - Departure Disposition: 01 Home, Self Care Clinical Impression: Neoplasm of uncertain behavior of liver Cirrhosis Qualifiers: Hepatic cirrhosis type: unspecified hepatic cirrhosis Ascites presence: with ascites Qualified Code(s): K74.60 - Unspecified cirrhosis of liver Condition: Good Instructions: ED Ascites, ED Cirrhosis Liver Follow-Up: Garry Hansen ARNP [Primary Care Provider] - Comments: Your abdomen has a large but flat bruise on it due to the recent paracentesis. At this time there is no evidence that this is a dangerous or concerning finding, and it should reabsorb (like any bruise) over the next 1-2 weeks. There is no evidence of infection at this time and there is no leaking from the procedure site. THE STITCHES NEED TO BE REMOVED IN THE NEXT 5-7 DAYS. As we've discussed tonight and on your previous visit, the most important next step in the medical care of your problem(s) is to establish follow up with your primary care provider so that appropriate consults can be performed and regularly scheduled visits can be made for possible OUTPATIENT paracentesis as needed. It is also very important that you take your medications PRESCRIBED. I have counted the number of spirinolactone pills remaining in the two bottles and it is clear that you are not adhering to the prescribed regimen. You have indicated that you have been in the emergency department four times recently but this does not explain why you did not take the medications each day even if in the emergency department (additionally considering you have had the medications with you on tonight's visit as well as when you were here 03/26/20. You have TWO spirinolactone prescriptions. Please only take the 50mg dose, once per day, as prescribed (do not take the 25 mg dose). Discharge Date/Time: 03/29/20 21:22
[2020-03-29 20:31] VITALS: BP 106/68
== END 2020-03-29 21:22 | disposition home or self-care (01) ==
LOC: EDUNIT# → ED 18:06
DX: K74.60 Unspecified cirrhosis of liver (principal); R18.8 Other ascites
CPT/HCPCS: 99281; 99283

== ENCOUNTER 2020-04-09 08:49 | Outpatient (CLI) | payer OTHER | END 2020-04-09 08:50 | disposition critical access hospital (66) | LOC: EMS 08:49 | PROVIDERS: ATTEND Surgery | DX: R06.02 Shortness of breath (principal); R14.0 Abdominal distension (gaseous) | CPT/HCPCS: A0425; A0429 ==

== ENCOUNTER 2020-04-09 09:33 | Emergency (ER) | payer OTHER ==
[2020-04-09] MEDS ORDERED: SODIUM CHLORIDE 0.9% 1,000 ML IV STA (09:37)
--- NOTE | 2020-04-09 09:54 | ED Physician Documentation ---
History of Present Illness - Stated complaint Stated Complaint: SOA - Chief complaint Chief Complaint: Resp - History obtained from History obtained from: Patient - History of Present Illness Timing: Chronic Pain level max: 5 Pain level now: 5 - Additonal information Additional information: Patient with a history of ascites, likely hepatocellular carcinoma and COPD. States increased abd discomfort and trouble breathing. no fever. no cough. worse with walking and better with rest. Patient states that he still does not have a primary care physician. He states he has been and unable to get a hold of the [facility] or [facility] med. He states he is taking his medications "as best he can". Review of Systems Ten Systems: 10 systems reviewed and negative Constitutional: denies: Fever, Chills, Myalgias Nose: denies: Rhinorrhea / runny nose, Congestion GI: denies: Vomiting, Diarrhea Skin: denies: Rash Musculoskeletal: denies: Neck pain, Back pain Neurologic: denies: Headache PD PAST MEDICAL HISTORY - Past Medical History Cardiovascular: None Respiratory: COPD Neuro: Head injury Endocrine/Autoimmune: Type 2 diabetes GI: GI bleed, Hepatitis : Other HEENT: None Psych: None Musculoskeletal: Fatigue Derm: None - Past Surgical History Past Surgical History: Yes General: Colonoscopy - Present Medications Home Medications: Ambulatory Orders Medication Instructions Recorded Confirmed Pantoprazole [Protonix] 40 mg PO DAILY #30 tablet 03/17/20 04/09/20 Furosemide [Lasix] 40 mg PO DAILY #20 tablet 03/19/20 04/09/20 Lactulose 10 gm PO DAILY #30 packet 03/20/20 04/09/20 Ondansetron Odt [Zofran] 4 mg TL Q6H PRN #20 tablet 03/20/20 04/09/20 oxyCODONE [Roxicodone] 5 mg PO Q4-6H PRN #20 tablet 03/20/20 04/09/20 Metoprolol Tartrate [Lopressor] 25 mg PO BID 03/23/20 04/09/20 Spironolactone [Aldactone] 50 mg PO DAILY #20 tablet 03/23/20 04/09/20 - Allergies Allergies/Adverse Reactions: Allergies Allergy/AdvReac Type Severity Reaction Status Date / Time sulfamethoxazole Allergy Unknown Verified 04/09/20 09:41 [From ] trimethoprim [From ] Allergy Unknown Verified 04/09/20 09:41 - Social History Does the pt smoke?: No Smoking Status: Never smoker Does the pt drink ETOH?: No Does the pt have substance abuse?: No - Immunizations Immunizations are current?: Yes - POLST Patient has POLST: No POLST Status: Full Code PD ED PE NORMAL - Vitals Vital signs reviewed: Yes - General General: Alert and oriented X 3, No acute distress - HEENT HEENT: Moist mucous membranes - Neck Neck: Supple, no meningeal sign - Cardiac Cardiac: RRR - Respiratory Respiratory: No respiratory distress, Clear bilaterally - Abdomen Abdomen: Other (distended, firm) - Derm Derm: Warm and dry - Extremities Extremities: Other (1+ B LE edema.) - Neuro Neuro: Alert and oriented X 3 - Psych Psych: Normal mood, Normal affect Results - Vitals Vitals: Vital Signs - 24 hr 04/09/20 04/09/20 04/09/20 09:39 09:45 10:45 Temperature 36.4 C L 36.4 C L Heart Rate 82 84 82 Respiratory 20 28 H 20 Rate Blood Pressure 128/72 125/72 123/70 O2 Saturation 98 95 99 04/09/20 04/09/20 04/09/20 11:25 12:00 12:21 Temperature Heart Rate 85 83 86 Respiratory 18 18 18 Rate Blood Pressure 126/69 131/70 H 127/74 O2 Saturation 100 99 99 Oxygen O2 Source Room air - EKG (time done) 0936 Rate: Rate (enter#) (80) Rhythm: NSR [place]: Normal QRS: Normal Ischemia: Normal ST segments - Labs Labs: Laboratory Tests 04/09/20 04/09/20 04/09/20 10:03 10:03 10:03 WBC 9.6 RBC 3.27 L Hgb 8.4 L Hct 28.6 L MCV 87.5 MCH 25.7 L MCHC 29.4 L RDW 18.9 H Plt Count 193 MPV 10.9 Neut # (Auto) 7.2 H Lymph # (Auto) 1.3 L [place] # (Auto) 0.8 Eos # (Auto) 0.2 Baso # (Auto) 0.0 Absolute Nucleated RBC 0.00 Nucleated RBC % 0.0 PT 14.2 H INR 1.3 H APTT 26.5 Sodium 135 Potassium 4.9 Chloride 98 L Carbon Dioxide 26 Anion Gap 11.0 BUN 29 H Creatinine 1.3 H Estimated GFR (MDRD) 56 L Glucose 170 H Calcium 9.4 Total Bilirubin 4.8 H AST 170 H ALT 147 H Alkaline Phosphatase 179 H Total Protein 6.3 L Albumin 2.7 L Globulin 3.6 Albumin/Globulin Ratio 0.8 L Lipase 129 H Procedures - Paracentesis Preparation: Consent obtained, Ultrasound guidance, Sterile prep and drape, Local anesthesia Location: RLQ Technique: Z-tract Fluid: Bloody Aftercare: No complications, Patient tolerated well, Dressing applied PD MEDICAL DECISION MAKING - ED course Complexity details: reviewed results, re-evaluated patient, considered differential, d/w patient ED course: 60-year-old male presents for a therapeutic paracentesis. He is short of breath and has a firmly distended abdomen. 3 L were removed. Tolerated well. He has been having difficulty with follow-up, therefore I contacted his medical case worker, she was able to speak with him in the emergency department and arrange follow-up for him. Patient counseled regarding signs and symptoms for which I believe and urgent re-evaluation would be necessary. Patient with good understanding of and agreement to plan and is comfortable going home at this time This document was made in part using voice recognition software. While efforts are made to proofread this document, sound alike and grammatical errors may occur. Patient feels much better after paracentesis. Departure - Departure Disposition: 01 Home, Self Care Clinical Impression: Ascites Qualifiers: Ascites type: other type Qualified Code(s): R18.8 - Other ascites Condition: Good Instructions: ED Cirrhosis Liver Follow-Up: your,doctor this week. [Other] Comments: You need to follow-up with a primary care doctor as soon as possible. You spoke with your career services assistant, Franchesca, today in the emergency department. She will help to coordinate your care with you. Your primary care doctor can set up a referral to radiology for paracentesis in the future. Please continue your current medications. Return if you worsen. Discharge Date/Time: 04/09/20 12:25
--- NOTE | 2020-04-09 10:03 | XRAY Report ---
PROCEDURE: Chest 1 View X-Ray INDICATIONS: dyspnea TECHNIQUE: One view of the chest was acquired. COMPARISON: None FINDINGS: Surgical changes and devices: None. Lungs and pleura: No pleural effusions or pneumothorax. Lungs are clear. Mediastinum: Mediastinal contours appear normal. Heart size is enlarged. Bones and chest wall: No suspicious bony lesions. Overlying soft tissues appear unremarkable. IMPRESSION: No acute cardiopulmonary process. Reviewed by: Walker Yeboah MD on 04/09/2020 9:01 AM [facility] Approved by: Walker Yeboah MD on 04/09/2020 9:01 AM [facility] Station ID: [id number]
[2020-04-09 10:06] LABS: BASOPHILS % (AUTO) 0.4 %; EOSINOPHILS # (AUTO) 0.2 10^3/uL (0.0-0.7); EOSINOPHILS % (AUTO) 1.6 %; HGB - HEMOGLOBIN 8.4 g/dL (14.0-18.0); LYMPHOCYTES # (AUTO) 1.3 10^3/uL (1.5-3.5); LYMPHOCYTES % (AUTO) 13.3 %; MEAN CORPUSCULAR HEMOGLOBIN 25.7 pg (27.0-31.0); MEAN CORPUSCULAR HGB CONC 29.4 g/dL (32.0-36.0); MEAN CORPUSCULAR VOLUME 87.5 fL (80.0-94.0); MEAN PLATELET VOLUME 10.9 fL (7.4-11.4); MONOCYTES # (AUTO) 0.8 10^3/uL (0.0-1.0); MONOCYTES % (AUTO) 8.8 %; NEUTROPHILS # (AUTO) 7.2 10^3/uL (1.5-6.6); NEUTROPHILS % (AUTO) 75.5 %; PLT - PLATELET COUNT 193 10^3/uL (130-450); RED BLOOD COUNT 3.27 10^6/uL (4.70-6.10); RED CELL DISTRIBUTION WIDTH 18.9 % (12.0-15.0); WHITE BLOOD COUNT 9.6 x10^3/uL (4.8-10.8)
[2020-04-09 10:14] LABS: INR 1.3 (0.8-1.2); PT - PROTHROMBIN TIME 14.2 secs (9.9-12.6)
[2020-04-09 10:19] LABS: ALBUMIN 2.7 g/dL (3.2-5.5); ALBUMIN/GLOBULIN RATIO 0.8 (1.0-2.2); BILIRUBIN,TOTAL 4.8 mg/dL (0.2-1.0); CALCIUM 9.4 mg/dL (8.5-10.3); CREATININE 1.3 mg/dL (0.6-1.2); TOTAL PROTEIN 6.3 g/dL (6.7-8.2)
[2020-04-09] MEDS ORDERED: LIDOCAINE 2%-EPI 1:100000 20 ML MDV SUBQ STA (10:20)
[2020-04-09] MEDS ORDERED: MORPHINE 2 MG/ML CARPUJECT IVP STA ×2 (10:20→12:12)
[2020-04-09 10:21] LABS: PARTIAL THROMBOPLASTIN TIME 26.5 secs (24.9-33.3)
[2020-04-09] MEDS ORDERED: MORPHINE 2 MG/ML CARPUJECT ONE (12:19)
[2020-04-09 12:25] VITALS: BP 127/74
== END 2020-04-09 12:25 | disposition home or self-care (01) ==
LOC: EDUNIT# → ED 09:33
DX: R18.8 Other ascites (principal); J44.9 Chronic obstructive pulmonary disease, unspecified; E11.9 Type 2 diabetes mellitus without complications
CPT/HCPCS: 36415; 49082; 80053; 83690; 85025; 85610; 85730; 93005

== ENCOUNTER 2020-04-10 08:15 | Outpatient (CLI) | payer OTHER | END 2020-04-10 08:16 | disposition critical access hospital (66) | LOC: EMS 08:15 | PROVIDERS: ATTEND Surgery | DX: R06.02 Shortness of breath (principal); R53.1 Weakness; K92.0 Hematemesis | CPT/HCPCS: A0425; A0427 ==

== ENCOUNTER 2020-04-10 08:37 | Observation (INO) | payer OTHER ==
--- NOTE | 2020-04-10 08:57 | ED Physician Documentation ---
PD HPI DYSPNEA - Stated complaint Stated Complaint: SOA - Chief complaint Chief Complaint: Abd Pain - History obtained from History obtained from: Patient, Family (), EMS - History of Present Illness Timing - onset: Yesterday (Patient has been having significant medical problems with liver failure and ascites. He was seen yesterday for abdominal pain and distention and trouble breathing. Patient and EMS report he had significant worsening of dyspnea weakness and nausea overnight.) Timing - onset during: Rest Timing - details: Abrupt onset (The patient states he felt significantly worse since yesterday. His confirms when I talked to her that he seems significantly worse since yesterday.), Gradual onset (with general weakness, liver failure, dyspnea. But with notable decline since yesterday. Denies vomiting blood/ melena.) Inciting event(s): No: URI Improved by: No: Rest Associated symptoms: Bilateral edema. No: Fever, Hemoptysis, Chest pain / discomfort Similar symptoms before: Has not had sx before Recently seen: Emergency Dept (yesterday for paracentesis of his ascites; recurrent procedure.) Review of Systems Unable to obtain: AMS (somnolent) Constitutional: denies: Fever Cardiac: denies: Chest pain / pressure Respiratory: reports: Dyspnea. denies: Cough GI: reports: Abdominal Pain (less than yesterday), Nausea, Vomiting. denies: Hematemesis, Bloody / black stool Neurologic: reports: Generalized weakness, Near syncope. denies: Focal weakness PD PAST MEDICAL HISTORY - Past Medical History Cardiovascular: None Respiratory: COPD Neuro: Head injury Endocrine/Autoimmune: Type 2 diabetes GI: GI bleed, Hepatitis : Other HEENT: None Psych: None Musculoskeletal: Fatigue Derm: None - Past Surgical History Past Surgical History: Yes General: Colonoscopy - Present Medications Home Medications: Ambulatory Orders Medication Instructions Recorded Confirmed Pantoprazole [Protonix] 40 mg PO DAILY #30 tablet 03/17/20 04/09/20 Furosemide [Lasix] 40 mg PO DAILY #20 tablet 03/19/20 04/09/20 Lactulose 10 gm PO DAILY #30 packet 03/20/20 04/09/20 Ondansetron Odt [Zofran] 4 mg TL Q6H PRN #20 tablet 03/20/20 04/09/20 oxyCODONE [Roxicodone] 5 mg PO Q4-6H PRN #20 tablet 03/20/20 04/09/20 Metoprolol Tartrate [Lopressor] 25 mg PO BID 03/23/20 04/09/20 Spironolactone [Aldactone] 50 mg PO DAILY #20 tablet 03/23/20 04/09/20 - Allergies Allergies/Adverse Reactions: Allergies Allergy/AdvReac Type Severity Reaction Status Date / Time sulfamethoxazole Allergy Unknown Verified 04/10/20 08:51 [From ] trimethoprim [From ] Allergy Unknown Verified 04/10/20 08:51 - Social History Does the pt smoke?: No Smoking Status: Never smoker Does the pt drink ETOH?: No Does the pt have substance abuse?: No - Immunizations Immunizations are current?: Yes - POLST POLST Status: comfort measures PD ED PE NORMAL - General General: Other (very pale and jaundice. Appears ill, tachypnea. Able to answer q uestions but somnolent. ) - Neck Neck: Supple, no meningeal sign, No adenopathy - Cardiac Cardiac: RRR, No murmur - Respiratory Respiratory: Clear bilaterally (no wheezing, but he is tachypneic. ) - Abdomen Abdomen: Soft, Other (bruising purple noted left abd wall around area of paracentesis yesterday. Otherwise moderate ascites, but softer and not tender. No percussion tenderness. ) - Derm Derm: No: Normal color (pale/jaundice yellow color) - Extremities Extremities: No calf tenderness / cord, Other (1+ edema both lower legs. ) - Neuro Neuro: No motor deficit Eye Opening: To Voice Motor: Obeys Commands Verbal: Oriented (sluggish answers) GCS Score: 14 Results - Vitals Vitals: Vital Signs - 24 hr 04/10/20 04/10/20 04/10/20 08:45 09:00 09:40 Temperature 36.1 C L 36.1 C L Heart Rate 88 85 78 Respiratory 26 H 27 H 16 Rate Blood Pressure 102/52 L 102/52 L 97/82 H O2 Saturation 100 100 100 04/10/20 04/10/20 04/10/20 09:50 10:30 10:35 Temperature 36.4 C L 36.2 C L Heart Rate 87 76 75 Respiratory 22 24 22 Rate Blood Pressure 78/42 L 70/43 L O2 Saturation 100 100 04/10/20 04/10/20 04/10/20 10:40 10:45 11:04 Temperature 36.2 C L Heart Rate 75 77 77 Respiratory 20 20 20 Rate Blood Pressure 76/36 L 78/14 L 84/45 L O2 Saturation 100 100 96 04/10/20 11:31 Temperature Heart Rate 76 Respiratory 20 Rate Blood Pressure 93/27 L O2 Saturation 99 Oxygen O2 Source Room air - Labs Labs: Laboratory Tests 04/10/20 04/10/20 04/10/20 09:09 09:09 09:20 WBC 30.4 H RBC 2.38 L Hgb 6.1 L* Hct 24.1 L MCV 101.3 H MCH 25.6 L MCHC 25.3 L RDW 19.0 H Plt Count 248 MPV 11.1 Neut # (Auto) Not Reportable Lymph # (Auto) Not Reportable Brantley # (Auto) Not Reportable Eos # (Auto) Not Reportable Baso # (Auto) Not Reportable Absolute Nucleated RBC Not Reportable Total Counted 100 Band Neuts % (Manual) 2 Abnorm Lymph % (Manual) 0 Myelocytes % 1 H Nucleated RBC % Not Reportable Neutrophils # (Manual) 22.5 H Lymphocytes # (Manual) 4.6 H Monocytes # (Manual) 3.0 H Eosinophils # (Manual) 0.0 Basophils # (Manual) 0.0 Differential Comment MANUAL DIFFERENTIAL WBC Morphology NORMAL APPEARANCE Platelet Estimate NORMAL (130-450,000) Platelet Morphology NORMAL DI RBC Morph Micro Appear 1+ SCHISTOCYTES VBG pH VBG pCO2 VBG pO2 VBG HCO3 VBG Total CO2 VBG O2 Saturation VBG Base Excess Sodium 141 Potassium 5.8 H Chloride 100 L Carbon Dioxide < 6 L* Anion Gap 35.0 H BUN 42 H Creatinine 3.4 H Estimated GFR (MDRD) 18 L Glucose 102 H Calcium 9.7 Magnesium 2.6 Total Bilirubin 5.5 H AST 868 H ALT 405 H Alkaline Phosphatase 165 H Total Protein 5.6 L Albumin 2.4 L Globulin 3.2 Albumin/Globulin Ratio 0.8 L Lipase 76 H Nasal Adenovirus (PCR) NOT DETECTED Nasal B. parapertussis DNA (PCR) NOT DETECTED Nasal Coronavir 229E PCR NOT DETECTED Nasal Coronavir HKU1 PCR NOT DETECTED Nasal Coronavir NL63 PCR NOT DETECTED Nasal Coronavir OC43 PCR NOT DETECTED Nasal Enterovir/Rhinovir PCR NOT DETECTED Nasal Influenza B PCR NOT DETECTED Nasal Influenza A PCR NOT DETECTED Nasal Parainfluen 1 PCR NOT DETECTED Nasal Parainfluen 2 PCR NOT DETECTED Nasal Parainfluen 3 PCR NOT DETECTED Nasal Parainfluen 4 PCR NOT DETECTED Nasal RSV (PCR) NOT DETECTED Nasal B.pertussis DNA PCR NOT DETECTED Nasal C.pneumoniae (PCR) NOT DETECTED Dwain Human Metapneumo PCR NOT DETECTED Nasal M.pneumoniae (PCR) NOT DETECTED Nasal SARS-CoV-2 (PCR) NOT DETECTED Blood Type Antibody Screen Crossmatch IS Only 04/10/20 04/10/20 10:07 10:15 WBC RBC Hgb Hct MCV MCH MCHC RDW Plt Count MPV Neut # (Auto) Lymph # (Auto) Brantley # (Auto) Eos # (Auto) Baso # (Auto) Absolute Nucleated RBC Total Counted Band Neuts % (Manual) Abnorm Lymph % (Manual) Myelocytes % Nucleated RBC % Neutrophils # (Manual) Lymphocytes # (Manual) Monocytes # (Manual) Eosinophils # (Manual) Basophils # (Manual) Differential Comment WBC Morphology Platelet Estimate Platelet Morphology RBC Morph Micro Appear VBG pH 6.816 L VBG pCO2 21.9 L VBG pO2 143.7 H VBG HCO3 3.5 L VBG Total CO2 4.1 L VBG O2 Saturation 97.3 H VBG Base Excess -28.6 L Sodium Potassium Chloride Carbon Dioxide Anion Gap BUN Creatinine Estimated GFR (MDRD) Glucose Calcium Magnesium Total Bilirubin AST ALT Alkaline Phosphatase Total Protein Albumin Globulin Albumin/Globulin Ratio Lipase Nasal Adenovirus (PCR) Nasal B. parapertussis DNA (PCR) Nasal Coronavir 229E PCR Nasal Coronavir HKU1 PCR Nasal Coronavir NL63 PCR Nasal Coronavir OC43 PCR Nasal Enterovir/Rhinovir PCR Nasal Influenza B PCR Nasal Influenza A PCR Nasal Parainfluen 1 PCR Nasal Parainfluen 2 PCR Nasal Parainfluen 3 PCR Nasal Parainfluen 4 PCR Nasal RSV (PCR) Nasal B.pertussis DNA PCR Nasal C.pneumoniae (PCR) Dwain Human Metapneumo PCR Nasal M.pneumoniae (PCR) Nasal SARS-CoV-2 (PCR) Blood Type O POSITIVE Antibody Screen NEGATIVE Crossmatch IS Only See Detail - Rads (name of study) chest xray Radiology: Prelim report reviewed (no acute cardiopulmonary process), See rad report PD MEDICAL DECISION MAKING - ED course Complexity details: reviewed old records (Review of social work notes from yesterday and talking with social work today, the [facility] and they were attempting to contact him yesterday but apparently had wrong number. ), re-evaluated patient, considered differential (Consideration for infection versus anemia versus blood loss. Initial blood pressure was softly normal at 102 systolic. Repeat blood pressures are lowering. Initial impression was some fluid and blood replacement. However his labs are returning, talk with the patient/, refocus to [facility].), d/w patient, d/w family (I talked with the patient's and told her how sick the patient was today. She affirmed that they did not want aggressive measures and were working towards hospice but she was not sure where that was as they had not contacted her yesterday. She was in agreement focusing treatment on [facility] now. ) ED course: Patient was presenting with shortness of breath and pallor. He states he may have had some dark stools. He is somewhat somnolent. Blood pressure was slightly low at 102 systolic and then became lower. Initial approach was to initiate some treatments until I found more information about where he was in the hospice process and also he and his 's wishes. After discussion with them, it was decided that this acute worsening of his condition is an appropriate tipping point to refocus treatment on comfort measures as there is unlikely very easy treatments. He does look critically ill at this point in given significant worsening of renal function and liver function and vital signs, I anticipate a steady progression to in the very near future. Comfort measures is most appropriate at this point in his disease progression, with patient and in concordance. - Critical Care Time(min): 40 Time Includes: Direct patient care, Coordinate care, Medical consult, Family consult for tx dec Data interpretation: Labs, Pulse ox, CXR Departure - Departure Disposition: ED Place in Observation Clinical Impression: Acute renal failure, Liver failure, Acidosis, metabolic, Hypotension, Comfort measures only status Condition: Serious
[2020-04-10] MEDS ORDERED: IPRATROPIUM/ALBUTEROL 3 ML NEB INH STA (08:59)
[2020-04-10 09:18] LABS: BASOPHILS % (AUTO) 0.2 %; EOSINOPHILS % (AUTO) 0.2 %; LYMPHOCYTES % (AUTO) 9.5 %; MEAN CORPUSCULAR HEMOGLOBIN 25.6 pg (27.0-31.0); MEAN CORPUSCULAR HGB CONC 25.3 g/dL (32.0-36.0); MEAN CORPUSCULAR VOLUME 101.3 fL (80.0-94.0); MEAN PLATELET VOLUME 11.1 fL (7.4-11.4); MONOCYTES % (AUTO) 8.9 %; NEUTROPHILS % (AUTO) 75.6 %; PLT - PLATELET COUNT 248 10^3/uL (130-450); RED BLOOD COUNT 2.38 10^6/uL (4.70-6.10); WHITE BLOOD COUNT 30.4 x10^3/uL (4.8-10.8)
[2020-04-10 09:21] LABS: HGB - HEMOGLOBIN 6.1 g/dL (14.0-18.0)
[2020-04-10 09:22] LABS: ABNORMAL LYMPHS % (MANUAL) 0 %
--- NOTE | 2020-04-10 09:41 | XRAY Report ---
PROCEDURE: Chest 1 View X-Ray INDICATIONS: chest pain TECHNIQUE: One view of the chest was acquired. COMPARISON: 04/09/2020, 03/19/2020 FINDINGS: Surgical changes and devices: None. Lungs and pleura: No pleural effusions or pneumothorax. Lungs are clear. Mediastinum: Mediastinal contours appear normal. Heart size is normal. Bones and chest wall: No suspicious bony lesions. Overlying soft tissues appear unremarkable. IMPRESSION: No acute cardiopulmonary disease process. Reviewed by: Teressa Rice MD, PhD on 04/10/2020 9:40 AM [facility] Approved by: Teressa Rice MD, PhD on 04/10/2020 9:40 AM [facility] Station ID: [id number]
[2020-04-10 09:47] LABS: ALBUMIN 2.4 g/dL (3.2-5.5); ALBUMIN/GLOBULIN RATIO 0.8 (1.0-2.2); ALKALINE PHOSPHATASE 165 IU/L (42-121); ALT ALANINE AMINOTRANSFERASE 405 IU/L (10-60); AST ASPARTATE AMINOTRANSFERASE 868 IU/L (10-42); BILIRUBIN,TOTAL 5.5 mg/dL (0.2-1.0); BUN - BLOOD UREA NITROGEN 42 mg/dL (6-20); CALCIUM 9.7 mg/dL (8.5-10.3); CHLORIDE 100 mmol/L (101-111); CREATININE 3.4 mg/dL (0.6-1.2); GLUCOSE 102 mg/dL (70-100); LIPASE 76 U/L (22-51); MAGNESIUM 2.6 mg/dL (1.7-2.8); TOTAL PROTEIN 5.6 g/dL (6.7-8.2)
[2020-04-10 09:49] LABS: CARBON DIOXIDE - CO2 < 6 mmol/L (21-32)
[2020-04-10] MEDS ORDERED: LORazepam 2 MG/ML VIAL IVP STA (10:02)
[2020-04-10] MEDS ORDERED: SODIUM CHLORIDE 0.9% 1,000 ML IV STA (10:02)
[2020-04-10 10:12] LABS: VBG PH 6.816 (7.31-7.41)
[2020-04-10 10:13] LABS: VBG BASE EXCESS -28.6 mmol/L (-2 - +2); VBG PCO2 21.9 mmHg (41-51); VBG PO2 143.7 mmHg (25-47); VBG TOTAL CO2 4.1 mmol/L (24-29)
[2020-04-10] MEDS ORDERED: ALBUMIN 25% 12.5 GM/50 ML VIAL IV STA (10:14)
[2020-04-10 10:27] LABS: BAND NEUTROPHILS % (MANUAL) 2 %; LYMPHOCYTES # (MANUAL) 4.6 10^3/uL (1.5-3.5); LYMPHOCYTES % (MANUAL) 15 %; MYELOCYTES % (MANUAL) 1 %
[2020-04-10 10:27] LABS: C. PNEUMONIAE- RESP PCR PANEL NOT DETECTED
[2020-04-10 10:31] LABS: DIFFERENTIAL COMMENT MANUAL DIFFERENTIAL; PLATELET ESTIMATE, MANUAL NORMAL (130-450,000) (NORMAL); PLATELET MORPHOLOGY NORMAL APP (NORMAL)
[2020-04-10] MEDS ORDERED: MORPHINE 2 MG/ML CARPUJECT IVP STA (11:09)
[2020-04-10] MEDS ORDERED: SODIUM CHLORIDE FLUSH 0.9% 10 ML SYRINGE IVP PRN (12:28)
[2020-04-10] MEDS ORDERED: MORPHINE SOL 10 MG/0.5 ML ORAL SYRINGE PO PRN (12:30)
[2020-04-10] MEDS ORDERED: LORazepam 1 MG TABLET PO PRN (12:30)
[2020-04-10] MEDS ORDERED: GLYCOPYRROLATE 1 MG/5 ML VIAL SUBQ PRN (12:30)
[2020-04-10] MEDS ORDERED: ACETAMINOPHEN 160 MG/5 ML SUSP UDC PO PRN (12:30)
[2020-04-10] MEDS ORDERED: PROCHLORPERAZINE 25 MG SUPP PR PRN (12:30)
--- NOTE | 2020-04-10 13:09 | HISTORY & PHYSICAL EXAMINATION ---
Chief Complaint - Chief Complaint Chief Complaint: dyspnea History of Present Illness - Admitted From Admitted From:: ER - History Obtained From Records Reviewed: [facility] History obtained from: pt's , at the bedside Exam Limitations: pt is unresponsive, all pt's HPI information from pt's - History of Present Illness HPI Comment/Other: This is a 60-year old male with A past medical history significant for type 2 d iabetes, alcohol abuse, liver failure, ascites, hepatitis C,esophageal varices, GI bleed, cigarette smoker with COPD, who present ER for abdominal alejandro, shortness of breath. Unfortunately when I attempted to assess pt, pt is unresponsive. Pt's HPI information is from pt's , she is at pt's bedside. pt's report pt continue nausea, vomiting and abdominal pain on last night. Recently pt had close ten times visiting ER with complications secondary to hepatic failure. His report before this happened, pt has been heavy drinking of alcohol, and heavy cigarette smoking. When I assess pt, pt is unresponsive, pt is pale and yellow, he is cold, his temperature is 33CL, BP is 75/25, pt has very shallow breathing, pt is likely at acute dying. Discussed the care goal with pt's , pt's clearly state pt is DNR/DNI, focus on comfortable measure only and let pt peacefully and comfortable dying. At the time, pt's signed PLOST, focus on comfortable care. History - Past Medical History Cardiovascular: reports: None Respiratory: reports: COPD Neuro: reports: Head injury Endocrine/Autoimmune: reports: Type 2 diabetes GI: reports: GI bleed, Hepatitis : reports: Other HEENT: reports: None Psych: reports: None Musculoskeletal: reports: Fatigue Derm: reports: None MRSA Hx?: No - Past Surgical History General: reports: Colonoscopy - Family & Social History Family History: Mother: Cancer (mom of colon cancer age 85, dad of bladder cancer age 76), Father: Cancer, Sister: Diabetes, Type 2, Brother: Diabetes, Type 2 Family History Comment/Other: pt's report pt's father from alcoholism and related complication, she could not remember pt's mother's medical history at this moment. Living Situation: With spouse/s.o. 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 No recreational substance abuse, specifically no IVDA. to 1st since 1989 . Live in their own home. He does not have children. No one else at home and there are stairs in the home. - Substance History Use: Uses substance without health or social issues: Cannabis - POLST Patient has POLST: No POLST Status: comfort measures Meds/Allgy - Home Medications Home Medications: Ambulatory Orders Medication Instructions Recorded Confirmed Pantoprazole [Protonix] 40 mg PO DAILY #30 tablet 03/17/20 04/09/20 Furosemide [Lasix] 40 mg PO DAILY #20 tablet 03/19/20 04/09/20 Lactulose 10 gm PO DAILY #30 packet 03/20/20 04/09/20 Ondansetron Odt [Zofran] 4 mg TL Q6H PRN #20 tablet 03/20/20 04/09/20 oxyCODONE [Roxicodone] 5 mg PO Q4-6H PRN #20 tablet 03/20/20 04/09/20 Metoprolol Tartrate [Lopressor] 25 mg PO BID 03/23/20 04/09/20 Spironolactone [Aldactone] 50 mg PO DAILY #20 tablet 03/23/20 04/09/20 - Allergies Allergies/Adverse Reactions: Allergies Allergy/AdvReac Type Severity Reaction Status Date / Time sulfamethoxazole Allergy Unknown Verified 04/10/20 08:51 [From ] trimethoprim [From ] Allergy Unknown Verified 04/10/20 08:51 Review of Systems - All Other Systems All Other Systems: reports: Other (pt is unresponsive, could not provide ROS) Exam - Vital Signs Vital Signs: Vital Signs x48h Temp Pulse Resp BP Pulse Ox 04/10/20 12:30 73 22 99/41 L 100 04/10/20 11:31 76 20 93/27 L 99 04/10/20 11:04 77 20 84/45 L 96 04/10/20 10:45 77 20 78/14 L 100 04/10/20 10:40 36.2 C L 75 20 76/36 L 100 04/10/20 10:35 36.2 C L 75 22 70/43 L 100 04/10/20 10:30 36.4 C L 76 24 78/42 L 100 04/10/20 09:50 87 22 04/10/20 09:40 78 16 97/82 H 100 04/10/20 09:00 36.1 C L 85 27 H 102/52 L 100 04/10/20 08:45 36.1 C L 88 26 H 102/52 L 100 - Physical Exam General Appearance: positive: Lethargic. negative: Alert Eyes Bilateral: positive: No lid inflammation ENT: positive: Dry mucous membranes Neck: positive: Nml inspection, Trachea midline, Thyromegaly. negative: Tracheal deviation Respiratory: positive: Other (shallow breathing) Cardiovascular: positive: Other (difficult to hear the heart sound from rosa m thoscopes) Peripheral Pulses: positive: 0 Abdomen: positive: Other (distention of abdomen, no bowel sound by stethoscopes) Back: positive: Nml inspection Skin: positive: Other (pale and yellow) Neurologic/Psychiatric: positive: Other (pt is unresponsive to verbal) Conclusion/Plan - Problem List (1) Encounter for dying care Conclusion/Plan: Patient is unresponsive, Temperature is 33 cl, Blood pressure 75/25, VBG PH 6.82, WBC 30, hemoglobin 6.1, creatinine 3.4, anion gap 42, Potassium 5.8, total bili 5.8, AST 868, ALT 405. ER provider discussed the care goal with the patient's . Because pt is unresponsive, I discussed the care goal with the patient's as well. Patient's wanted patient has comfortable measure only, peaceful and comfortable dying. pt's signed PLOST forum. After I assessed pt, I noted to pt's , pt is imminent dying now. I answered pt's questions and concerns, and expressed my sympathy. plan: focus on comfort measure, PRN Morphine and Ativan. Antiemesis as needed. (2) Comfort measures only status Conclusion/Plan: Patient's signed PLOST forum, and focus on comfort measure only status, PRN on Morphine and Ativan. - Lab Results Fish Bones: 04/10/20 09:09 04/10/20 09:09 Core Measures - Anticipated LOS I expect patient to be DC'd or transferred within 96 hours.: Yes
[2020-04-10 14:25] VITALS: BP 75/25
[2020-04-10 14:38] LABS: GLUCOSE, URINE (UA) NEGATIVE (NEGATIVE); KETONES,URINE (UA) NEGATIVE (NEGATIVE); LEUKOCYTE ESTERASE, URINE NEGATIVE (NEGATIVE); NITRITE,URINE NEGATIVE (NEGATIVE); OCCULT BLOOD,URINE MODERATE (NEGATIVE); PROTEIN,URINE TRACE mg/dL (NEGATIVE); UROBILINOGEN,URINE 4 E.U./dL (NORMAL)
[2020-04-10 14:39] LABS: CLARITY,URINE SL. CLOUDY (CLEAR)
[2020-04-10 14:43] LABS: BILIRUBIN,URINE NEGATIVE (NEGATIVE); ICTOTEST,URINE NEGATIVE
[2020-04-10 14:46] LABS: BACTERIA,URINE Few /HPF (None Seen); SQUAMOUS EPITHELIAL CELL,UR FEW Squamous (<= Few)
[2020-04-10 14:47] LABS: AMORPHOUS SEDIMENT,UR Moderate /LPF
[2020-04-10] MEDS ORDERED: MORPHINE 2 MG/ML CARPUJECT IVP PRN (15:11)
[2020-04-10] MEDS ORDERED: SODIUM CHLORIDE FLUSH 0.9% 10 ML SYRINGE IVP SCH (17:00)
--- NOTE | 2020-04-10 17:12 | PROVIDER PROGRESS NOTE ---
Hospitalist Cross-cover Note - Cross-Cover Note Cross-Cover Note: nurse report pt . I went to assess pt. Pt is pale and peripherally cold. pt has no respiratory effort and no audible breath sounds. Pt has no palpable central pulse and no audible heart sounds. pts pupils is fixed, dilated and unresponsive to light. pt is no response to a painful stimulus. Pt is announced his time is 15:55, 04/10/2020
--- NOTE | 2020-04-10 17:13 | DISCHARGE SUMMARY ---
Discharge Summary Admit Date: 04/10/20 Discharge Date: 04/10/20 Discharging Provider: Lev Foy Primary Care Provider: Celestine Grubbs Discharge Disposition: 20 Discharge Facility Name: pt was at hospital - DIAGNOSES Discharge Diagnoses with Status of Each Condition: (1)hypotension Patient has low BP at the admission, then pt's BP was down to 75/25, pt was unresponsive. After ER provider discussed pt's , pt was in the hospice p [facility]. Hospice care was pt and his 's wishes. pt's decided to refocus treatment on comfort measures only. (2) Encounter for dying care Patient is unresponsive, Temperature is 33 cl, Blood pressure 75/25, VBG PH 6.82, WBC 30, hemoglobin 6.1, creatinine 3.4, anion gap 42, Potassium 5.8, total bili 5.8, AST 868, ALT 405. ER provider discussed the care goal with the patient's . Because pt is unresponsive, I discussed the care goal with the patient's as well. Patient's clearly wish patient has comfortable measure only, hope pt has peaceful and comfortable dying. pt's signed new PLOST forum. (3)unresponsive Patient is unresponsive, it is likely multiple factors to contribute, including Hepatic failure with encephalopathy, hepatorenal syndrome, Metabolic acidosis, severe dehydration from his nausea and vomiting on last night. (4)hypothermia pt has temperature 33cl, pt's understood pt is acute dying and focus on comfort measure only, and no further intervention for pt. (5)hepatic failure pt has hx of hepatic failure with alcoholism, Hepatitis C, and continue heavy drinking alcohol, pt has elevated ascite, Patient often visit the ER for Paracentesis, esophageal varices with hx of GI bleed, HGB is 6.1 today, significantly elevated liver enzyme. pt's understood pt is acute dying and focus on comfort measure only. (6)hepatorenal syndrome pt is likely to have acute hepatorenal syndrome with renal failure and hepatic failure. pt's understood pt is acute dying and focus on comfort measure only. (7)severe anemia Patient's HGB 6.1. pt has hx of esophageal varices with hx of GI bleed. pt's understood pt is acute dying and no further intervention for pt. (8)metabolic acidosis Patient VBG PH is 6.82, pt has hepatorenal syndrome and has severe dehydration, focus on comfort measure only (9)hyperkalemia Patient K is 5.8, likely caused by pt's acute renal failure. focus on comfort measure only, non further intervention (10)hx of alcohol abuse Patient Has long history of alcohol abuse. Patient report patient has been heavy alcohol drinking and cigarette smoke (11)hx of esophageal varices with GI bleed Patient did not vomiting of blood at this time. pt has hx of Esophageal varices With emesis of blood in Last month. (12)comfort measure only status Patient's hope patient to have comfortable management only status. His also signed new POLST form. - HPI History of Present Illness: This is a 60-year old male with A past medical history significant for type 2 diabetes, alcohol abuse, liver failure, ascites, hepatitis C,esophageal varices, GI bleed, cigarette smoker with COPD, who present ER for abdominal alejandro, shortness of breath. Unfortunately when I attempted to assess pt, pt is unresponsive. Pt's HPI information is from pt's , she is at pt's bedside. pt's report pt continue nausea, vomiting and abdominal pain on last night. Recently pt had close ten times visiting ER with complications secondary to hepatic failure. His report before this happened, pt has been heavy drink ing of alcohol, and heavy cigarette smoking. When I assess pt, pt is unresponsive, pt is pale and yellow, he is cold, his temperature is 33CL, BP is 75/25, pt has very shallow breathing, pt is likely at acute dying. I explained pt is acute dying, pt's understood. Discussed the care goal with pt's , pt's clearly state pt is DNR/DNI, focus on comfortable measure only and let pt peacefully and comfortable dying. At the time, pt's signed PLOST, focus on comfortable care. - HOSPITAL COURSE Hospital Course: Initially patient was admitted in the observation unit and try to transfer patient on tomorrow for hospice care. In ER, pt and pt's wish refocus on comfort measure only status. pt has been referral to hospice in the past but pt was notpt is unresponsive. when Patient was transferred to medical floor, patient's blood pressure continue decreased, pt became hypothermia as well, pt's breath became shallow, central pause became very weak. pt's was noted pt is acute dying. She understood and her questions was answered. pt at 15:55 04/10/20. The sympathy was expressed to pt's . - ALLERGIES Allergies/Adverse Reactions: Allergies Allergy/AdvReac Type Severity Reaction Status Date / Time sulfamethoxazole Allergy Unknown Verified 04/10/20 08:51 [From ] trimethoprim [From ] Allergy Unknown Verified 04/10/20 08:51 - MEDICATIONS Home Medications: Ambulatory Orders Medication Instructions Recorded Confirmed Pantoprazole [Protonix] 40 mg PO DAILY #30 tablet 03/17/20 04/09/20 Furosemide [Lasix] 40 mg PO DAILY #20 tablet 03/19/20 04/09/20 Lactulose 10 gm PO DAILY #30 packet 03/20/20 04/09/20 Ondansetron Odt [Zofran] 4 mg TL Q6H PRN #20 tablet 03/20/20 04/09/20 oxyCODONE [Roxicodone] 5 mg PO Q4-6H PRN #20 tablet 03/20/20 04/09/20 Metoprolol Tartrate [Lopressor] 25 mg PO BID 03/23/20 04/09/20 Spironolactone [Aldactone] 50 mg PO DAILY #20 tablet 03/23/20 04/09/20 - PHYSICAL EXAM AT DISCHARGE Physical Exam Other/Comments: pt dies at 15:55 04/10/20, please review hospitalist cross-cover note - LABS Result Diagrams: 04/10/20 09:09 04/10/20 09:09 - FOLLOW UP Follow Up: pt dies at 15:55 04/10/20 - TIME SPENT Time Spent in Discharge (Minutes): 30
== END 2020-04-10 15:55 | disposition expired ==
LOC: EDUNIT# → ED 08:37 → MS2 12:28
PROVIDERS: ADMIT Specialist; ATTEND Nurse Practitioner Gerontology
DX: I95.9 Hypotension, unspecified (principal); R40.4 Transient alteration of awareness; K70.40 Alcoholic hepatic failure without coma; K76.7 Hepatorenal syndrome; B19.20 Unspecified viral hepatitis C without hepatic coma; D64.9 Anemia, unspecified; E87.2 Acidosis; E87.5 Hyperkalemia; F17.210 Nicotine dependence, cigarettes, uncomplicated; E11.9 Type 2 diabetes mellitus without complications; J44.9 Chronic obstructive pulmonary disease, unspecified; Z66 Do not resuscitate; F10.11 Alcohol abuse, in remission; Z20.822 Contact with and (suspected) exposure to COVID-19
CPT/HCPCS: 0202U; 36415; 71045; 80053; 81001; 82803; 83690; 83735; 85025; 86850; 86900; 86901; 86920; 93005; 94640; 96361; 96374; 99285; 99291; A9270; G0378; P9016; 81003; 87086